=== PATIENT | male | born 1940 | race Caucasian/White ===

== ENCOUNTER 2024-12-06 03:39 | Inpatient (IN) | payer MEDICARE, BC, SELFPAY ==
[2024-12-05 19:42] VITALS: BP 168/102
[2024-12-05 20:01] LABS: % Basophils 0.2 % (0-2); % Immature Granulocytes 0.4 % (0-0.5); % Lymphocytes 9.1 % (20.5-51.1); % Monocytes 7.5 % (1.7-9.3); % Neutrophils 81.8 % (42.2-75.2); Absolute Eosinophils 0.1 10^3/uL (0-0.7); Absolute Lymphocytes 0.9 10^3/uL (1.2-3.4); Absolute Monocytes 0.8 10^3/uL (0.1-0.6); Absolute Neutrophils 8.2 10^3/uL (1.4-6.5); Hematocrit 38.3 % (39.0-52.0); Hemoglobin 13.2 g/dL (13.0-18.0); Mean Corp Hgb Conc. 34.5 g/dL (33.0-37.0); Mean Corpuscular Hgb 29.8 pg (27.0-31.0); Mean Corpuscular Volume 86.5 fL (80.0-94.0); Mean Platelet Volume 9.5 fL (7.4-10.4); Nucleated Red Blood Cells % 0 % (-); Platelet Count 212 10^3/uL (130-400); Red Blood Cell Count 4.43 10^6/uL (4.70-6.10); Red Cell Dist. Width 13.6 % (11.5-14.5)
[2024-12-05 20:15] LABS: COVID-19 Antigen Negative (Negative)
[2024-12-05 20:22] LABS: ALT (SGPT) 21 U/L (0-50); AST (SGOT) 25 U/L (17-59); Albumin 4.4 g/dl (3.5-5.0); Alkaline Phosphatase 72 U/L (38-126); Blood Urea Nitrogen 20 mg/dl (9-20); Calcium 9.3 mg/dl (8.4-10.2); Carbon Dioxide 27 mmol/L (22-30); Chloride 100 mmol/L (98-107); Glucose 230 mg/dl (70-99); Potassium 3.7 mmol/L (3.5-5.1); Sodium 137 mmol/L (135-145); Total Bilirubin 0.6 mg/dl (0.2-1.3); Total Protein 6.9 g/dl (6.3-8.2); eGFR > 60.00
--- NOTE | 2024-12-05 23:20 | ED.GENMED ---
History of Present Illness
<Ashkan Brink DO, Resident - Last Filed: 12/05/24 23:58>
General
Chief Complaint: Weakness
Source: patient, records and family
Time Seen by Provider: 12/05/24 23:08
History of Present Illness
History of Present Illness:
84-year-old male past medical history of seizures, atrial fibrillation on Eliquis, triple bypass, hypertension, hyperlipidemia presents for weakness and fever of 1 day in duration. Family reports that this morning patient was extremely weak, was
unable to get up and move around which she is typically able to do on his own. They are also reporting he has had a nonproductive cough for the last day or so. Report taking temperature at home, highest reading they report seeing was 101. Patient
has taken some medications, unfortunately they are in [place] and I am unsure to determine what they are specifically. Patient also endorses he is having 1 episode of nausea with vomiting, nonbloody, no diarrhea. In the emergency department patient
is afebrile, is in no respiratory distress, satting 94% on room air.
Past History
<Ashkan Brink DO, Resident - Last Filed: 12/05/24 23:58>
Past History
ED Past Medical History: CAD, HTN, Hypercholesterolemia, IDDM and Other (Kidney stones, BPH)
ED Past Surgical History: Appendectomy, Cardiac (CABG) and Other (Lower leg varicose vein stripping)
Social History
Tobacco: Non-smoker
Alcohol: Occasional
Drug: None
Personal:
Living: with family
Employment: Retired
Family History
Family History: Other (Noncontributory)
Review of Systems
<Ashkan Brink DO, Resident - Last Filed: 12/05/24 23:58>
Review of Systems
Constitutional: Reports fever
Respiratory: Reports cough (Nonproductive, nonbloody)
Cardiac: Reports no symptoms
ABD/GI: Reports nausea and vomiting; Denies diarrhea
Musculoskeletal: Reports no symptoms
Phy Exam
<Ashkan Brink DO, Resident - Last Filed: 12/05/24 23:58>
General Physical Exam
General Presentation: well appearing
Cardiovascular Exam
Cardiovascular Exam: no edema, no murmur and irregularly irregular
Pulmonary Exam
Pulmonary Exam: no respiratory distress, no crackles, no wheezing and other (Rhonchi present in right lower lung soriano)
Gastrointestinal Exam
Gastrointestinal Exam: non tender, soft and non distended
Neurological Exam
Neurological Exam: alert, oriented x3 and speech normal
Musculoskeletal Exam
Musculoskeletal Exam: no edema
Course
<Ashkan Brink DO, Resident - Last Filed: 12/05/24 23:58>
Orders/Labs/Results
Orders:
Orders
12/05/24 19:54
COVID-19 Antigen Urgent
Source: Nasal Swab
Complete Blood Count/With Diff Urgent
Comprehensive Metabolic Panel Urgent
Influenza A+B Rapid Molecular Urgent
SARAH Source: Nasal Swab
Specimen Description:
12/05/24 23:29
Electrocardiogram (*1) Urgent
Reason for Study: Shortness of Breath
EKG- Treatment ONCE
CR Chest - 2 Views Urgent
Comment:
Reason For Exam: sob low grade temp
12/05/24 23:30
0.9% Sodium Chloride 500 ml [Nss] 500 ml IV BOLUS
12/06/24 01:11
Bedside Glucose- Treatment ONCE
12/06/24 01:24
Straight cath- Treatment ONCE
Urinalysis Reflex To Culture Urgent
Abnormal Lab Results
12/05/24 12/06/24
19:54 01:16
RBC 4.43 L 10^6/uL
(4.70-6.10)
Hct 38.3 L %
(39.0-52.0)
Absolute Neuts (auto) 8.2 H 10^3/uL
(1.4-6.5)
Absolute Lymphs (auto) 0.9 L 10^3/uL
(1.2-3.4)
Absolute Monos (auto) 0.8 H 10^3/uL
(0.1-0.6)
Neutrophils % 81.8 H %
(42.2-75.2)
Lymphocytes % 9.1 L %
(20.5-51.1)
Glucose 230 H mg/dl
(70-99)
POC Glucose 187 H mg/dl
(70-99)
12/05/24 19:54
12/05/24 19:54
Vital Signs
Initial and Last Documented VS:
Initial Vital Signs
Temp Pulse Resp BP Pulse Ox
37.8 C 99 18 168/102 94
12/05/24 19:42 12/05/24 19:42 12/05/24 19:42 12/05/24 19:42 12/05/24 19:42
Last Documented Vital Signs
Temp Pulse Resp BP Pulse Ox
37.1 C 103 18 166/87 94
12/06/24 00:20 12/06/24 00:20 12/06/24 00:20 12/06/24 00:20 12/06/24 00:20
Nainalt;Tony Bernal, DO - Last Filed: 12/06/24 02:30>
Orders/Labs/Results
Orders:
Orders
12/05/24 19:54
COVID-19 Antigen Urgent
Source: Nasal Swab
Complete Blood Count/With Diff Urgent
Comprehensive Metabolic Panel Urgent
Influenza A+B Rapid Molecular Urgent
SARAH Source: Nasal Swab
Specimen Description:
12/05/24 23:29
Electrocardiogram (*1) Urgent
Reason for Study: Shortness of Breath
EKG- Treatment ONCE
CR Chest - 2 Views Urgent
Comment:
Reason For Exam: sob low grade temp
12/05/24 23:30
0.9% Sodium Chloride 500 ml [Nss] 500 ml IV BOLUS
12/06/24 01:11
Bedside Glucose- Treatment ONCE
12/06/24 01:24
Straight cath- Treatment ONCE
Urinalysis Reflex To Culture Urgent
Abnormal Lab Results
12/05/24 12/06/24
19:54 01:16
RBC 4.43 L 10^6/uL
(4.70-6.10)
Hct 38.3 L %
(39.0-52.0)
Absolute Neuts (auto) 8.2 H 10^3/uL
(1.4-6.5)
Absolute Lymphs (auto) 0.9 L 10^3/uL
(1.2-3.4)
Absolute Monos (auto) 0.8 H 10^3/uL
(0.1-0.6)
Neutrophils % 81.8 H %
(42.2-75.2)
Lymphocytes % 9.1 L %
(20.5-51.1)
Glucose 230 H mg/dl
(70-99)
POC Glucose 187 H mg/dl
(70-99)
12/05/24 19:54
12/05/24 19:54
Vital Signs
Initial and Last Documented VS:
Initial Vital Signs
Temp Pulse Resp BP Pulse Ox
37.8 C 99 18 168/102 94
12/05/24 19:42 12/05/24 19:42 12/05/24 19:42 12/05/24 19:42 12/05/24 19:42
Last Documented Vital Signs
Temp Pulse Resp BP Pulse Ox
37.1 C 103 18 166/87 94
12/06/24 00:20 12/06/24 00:20 12/06/24 00:20 12/06/24 00:20 12/06/24 00:20
<Ashkan Brink DO, Resident - Last Filed: 12/05/24 23:58>
MDM/Problems Addressed
Differential Diagnosis Includes:
Acute viral upper respiratory illness, bronchitis, pneumonia,
MDM/Problems Addressed:
84 male presents for elevated temperature, weakness and nonproductive cough approximately 1 day in duration
Patient is also endorsing 1 episode of nausea with vomiting, nonbloody no diarrhea
Patient reports he has been taking [id number]-ffsltal medications for his symptoms, unfortunately they are in [place] and I am unable to determine which medications they are specifically
In the emergency department, patient is afebrile, pressures are elevated, satting 94% on room air, no respiratory distress, resting comfortably in bed
White count within normal limits, hemoglobin within normal limits, chemistry within normal limits
On physical exam, abdomen benign heart irregularly irregular,
Lungs clear to auscultation, no wheezing, some rales in the right lower lung field
Influenza negative
COVID pending
Order chest x-ray two-view
Will check EKG
Will initiate 500 mL IV bolus as patient is weak
Low threshold for admission as patient is extremely weak and having difficulty moving around on his own
<Ashkan Brink DO, Resident - Last Filed: 12/05/24 23:58>
*Critical Care Note
Total Time (30-74mins, 75-104mins- exclusive of procedures): Not Applicable
ED Attending Note
<Ashkan Brink DO, Resident - Last Filed: 12/05/24 23:58>
-
Portions of this chart may have been created with voice recognition software.� Occasional wrong word or��sound alike� substitutions may have occurred due to the inherent limitations of voice recognition software.
<Tony Bernal DO - Last Filed: 12/06/24 02:30>
ED Attending Note
Patient seen and examined by attending physician: Yes
I performed a history and physical exam of patient and discussed management with resident, I reviewed resident's note and agree with documented findings and plan of care.: Yes
ED Attending Note:
The patient has rather significant debilitating weakness. It took several senior sales consultant just to get the patient out of the house over a prolonged period of time. Blood work is relatively unremarkable. Borderline tachycardic.
Discharge Plan
Departure
Patient Disposition: Admit
Date of Disposition: 12/06/24
Time of Disposition: 01:15
Presentation/result/management discussed w/ accepting MD/DO: Hospitalist
Patient with high blood pressure during this ER visit?: Yes
Discharge Problem:
Weakness
Prescriptions:
No Action
cholecalciferol (vitamin D3) [Vitamin D3] 1,000 UNIT tablet
1,000 unit PO HS
One Daily For Men Tablet
1 tab PO DAILY
cyanocobalamin (vitamin B-12) 1,000 MCG tablet
500 mcg PO Q48H
rosuvastatin 10 MG tablet
10 mg PO QPM
metformin 1,000 MG tablet
1,000 mg PO BID
Patient Comments:
stopped in [place] 03/19/19
acetaminophen 325 MG tablet
650 mg PO Q4HWA Qty: 0 0RF
Coreg:
25 mg PO BID
apixaban [Eliquis] 5 MG tablet
5 mg PO BID Qty: 60 2RF
ascorbic acid (vitamin C) [Vitamin C] 1,000 MG tablet
1,000 mg PO DAILY
sertraline 25 MG tablet
50 mg PO HS
docosahexaenoic acid-epa 1 CAP capsule
1 cap PO DAILY
psyllium husk (aspartame) [Metamucil Sugar-Free (aspart)] 174 GM powder
174 gm PO DAILY
cranberry extract [Theracran] 650 MG capsule
650 mg PO DAILY
losartan 50 MG tablet
100 mg PO HS
donepezil 5 MG tablet
5 mg PO DAILY
insulin aspart U-100 [Novolog U-100 Insulin aspart] 1,000 UNITS/10 ML solution
2 - 6 units SC .DAILYINAM
Patient Comments:
SLIDING SCALE
ezetimibe 10 MG tablet
10 mg PO HS
levetiracetam [Keppra] 750 MG tablet
500 mg PO BID
glipizide 5 MG tablet extended release 24hr
5 mg PO DAILY
amlodipine 5 MG tablet
5 mg PO DAILY Qty: 30 0RF
levofloxacin [Levaquin] 500 MG tablet
500 mg PO Daily Qty: 4 0RF
insulin glargine [Lantus U-100 Insulin] 100 UNIT/ML solution
17 units SQ HS Qty: 0 0RF
cephalexin 250 MG capsule
250 mg PO DAILY Qty: 0 0RF
Referrals:
UNKNOWN - PT NOT,INTERVIEWE [Family Provider] -
Interventions
Interventions:
*Risk Screen - Suicide Last Done: 12/05/24 19:42
*General Assessment Last Done: 12/05/24 19:42
*Neglect/Abuse Screening Last Done: 12/05/24 19:42
ED- Cardiac Assessment Last Done: 12/06/24 01:36
ED- Neurological Assessment Last Done: 12/06/24 00:21
ED- Pulmonary Assessment Last Done: 12/06/24 00:00
Discharge Date and Time
Print Language: IRISH
[2024-12-06] MEDS: NSS 500 IV (00:14)
[2024-12-06 00:20] VITALS: BP 166/87
[2024-12-06 01:18] LABS: Glucose - Point of Care 187 mg/dl (70-99)
[2024-12-06 02:10] VITALS: BMI 27.1
--- NOTE | 2024-12-06 03:09 | HPS.HSE ---
Family Physician
-
Family Physician: INTERVIEWE UNKNOWN - PT NOT
Chief Complaint
-
Weakness
History of Present Illness
This is an 84-year-old who has past medical history significant for CAD status post CABG, permanent atrial fibrillation on anticoagulation, BPH with recurrent urinary tract infections, hypertension, seizure disorder not currently on any
antiepileptics anymore who presents to the emergency department with acute onset of weakness this morning.
Per patient and family he had developed a nonproductive cough yesterday. He states that he has some mild shortness of breath. He denies having any chest pain. He denies any pleuritic symptoms. He is unaware of any fever. Family reportedly had a
Tmax of 101 yesterday at home. This morning patient was very difficult to get out of bed. He was unable to perform his usual activities in the morning. He was even unable to get up and move around. He himself denies any abdominal pain. He
reports 1 episode of vomiting during transfer by EMS. He denies any diarrhea. He denies any recent bloody bowel movements. He denies any melena. He denies having any urinary symptoms.
No sick contacts or recent travel.
On arrival in the emergency department he was normotensive to hypertensive with a blood pressure of 166/87, pulse was 103 and temperature was 98.7. Respiratory rate was 18 and he was satting 95% on room air. ECG shows atrial flutter with variable
conduction at a rate of 95. Chest x-ray shows no acute infiltrates. COVID and influenza were negative. CBC was unremarkable. Chemistries notable for glucose of 230 but otherwise unremarkable. LFTs within normal limits. No evidence of urinary
retention on bladder scan.
Medical History
Past Medical History
Past Medical History: Reports Arrhythmia (Permanent A-fib), CAD, HTN, Hypercholesterolemia, IDDM and Seizures
Additional Past Medical History:
Kidney stones
Past Surgical History: Reports Appendectomy and Cardiac (CABG)
Social History
Tobacco: Non-smoker
Alcohol: None
Drug: None
Personal:
Living: With Family
Employment: Retired
Family History
Family History: Not pertinent
Allergies / Home Medications
Allergies reflects when Allergies were last updated in [facility].
Home Medications with original date entered in [facility]
Allergy/Medication List:
Allergies
Allergy/AdvReac Type Severity Reaction Status Date / Time
lisinopril Allergy Unknown Verified 05/22/21 16:11
Home Medications
One Daily For Men Tablet 1 tab PO DAILY Supplement 03/02/11
cholecalciferol (vitamin D3) 25 mcg (1,000 unit) tablet (Vitamin D3) 1,000 unit PO HS Supplement 03/02/11
cyanocobalamin (vitamin B-12) 1,000 mcg tablet 500 mcg PO Q48H Supplement 01/26/17
rosuvastatin 10 mg tablet 10 mg PO QPM High cholesterol 01/26/17
metformin 1,000 mg tablet 1,000 mg PO BID Diabetes 04/10/17
acetaminophen 325 mg tablet 650 mg (2 x 325 mg) PO Q4HWA pain ##0 05/01/17
Core mg PO BID Heart disease/condition 03/30/19
apixaban 5 mg tablet (Eliquis) 5 mg PO BID #60 tabs 04/01/19
docosahexaenoic acid (dha)-epa 120 mg-180 mg capsule 1 cap PO DAILY Supplement 12/29/19
losartan 50 mg tablet 100 mg PO HS Blood pressure 12/29/19
ezetimibe 10 mg tablet 10 mg PO HS High cholesterol 04/30/21
amlodipine 5 mg tablet 5 mg PO DAILY #30 tabs 05/03/21
cephalexin 250 mg capsule 250 mg PO DAILY Infection ##0 05/03/21
glipizide 2.5 mg tablet, extended release 24 hr 2.5 mg PO DAILY Diabetes 05/03/21
insulin glargine 100 unit/mL subcutaneous solution (Lantus U-100 Insulin) 12 units (0.17 mL) SQ HS Diabetes ##0 05/03/21
Review of Systems
-
History Source: Patient and Family
Constitutional: Reports Fever and Fatigue
EENT: Reports No Symptoms
Respiratory: Reports Cough
Cardiac: Reports No Symptoms
Abdomen/GI: Reports Nausea
: Reports No Symptoms
Musculoskeletal: Reports No Symptoms
Skin: Reports No Symptoms
Neurological: Reports Weakness
Endocrine: Reports No Symptoms
Hematologic/Lymphatic: Reports No Symptoms
Psych: Reports No Symptoms
Physical Exam
Vital Signs
Vital Signs
Temp Pulse Resp BP Pulse Ox
98.7 F 99 15 166/87 94
12/06/24 00:20 12/06/24 03:00 12/06/24 03:00 12/06/24 00:20 12/06/24 02:45
Physical Exam
General: No Apparent Distress, Comfortable and Conversant
HEENT: NormoCephalic, Anicteric, Moist mucous membranes and Atraumatic
Respiratory: Clear
Cardiac: S1/S2 and Irregular Rhythm
Breast: Deferred by me
GI: Soft, Non Tender, Non Distended and Normal Bowel Sounds
Rectal: Deferred by Provider
Genito-urinary: Clear Urine and No costovertebral tender
Musculoskeletal: No Clubbing, No Cyanosis and No Edema
Skin: Warm
Neuro: AO x 3 and Nonfocal/grossly intact
Hematologic/Lymphatic: No Lymphadenopathy
Psych: Calm
Laboratory Results
-
12/05/24 19:54
12/05/24 19:54
Laboratory Results
Total Bilirubin 0.6 mg/dl (0.2-1.3) 12/05/24 19:54
AST 25 U/L (17-59) 12/05/24 19:54
ALT 21 U/L (0-50) 12/05/24 19:54
Alkaline Phosphatase 72 U/L (38-126) 12/05/24 19:54
Data Reviewed
-
Diagnostic Radiology: Image Personally Visualized and interpreted
Medical Tests (Nuc Med, Echo, EKG etc): Image Personally Visualized and interpreted
Lab Data: Labs Reviewed by me
Old Records: Reviewed
Impression/Plan
-
IMPRESSION:
84-year-old with complex past medical history including CAD status post CABG, permanent atrial fibrillation on anticoagulation, insulin-dependent diabetes, hypertension and BPH who has a history of recurrent urinary tract infections presents to the
emergency department with sudden weakness. History suggestive of 1 day of nonproductive, a measured fever at home and some mild shortness of breath. He denies any urinary symptoms. He reports mild dyspnea. He is extremely weak however viral
studies were negative. Chest x-ray shows no acute infiltrates. UA is pending. CBC and electrolytes are actually unremarkable. ECG shows no ischemia with known atrial flutter. Chart indicates history of seizure. Patient is not currently on any
seizure medications per the home meds. No seizure-like activity noted per family in the recent past.
PLAN:
Weakness w/ possible fever -no focal source of infection at this time. Highly suspicious for a urinary tract infection despite patient denial of urinary symptoms. Chest x-ray is clear at this time. He does have a history of ESBL E. coli as well
as sensitive Morganella.
- admit to med/surg
- gentle hydration for now
- if u/a positive will start empiric zosyn
- check procal, if positive and u/a negative, will start empiric ceftriaxone/doxycycline
- routine pulse ox
- routine neurochecks
- check cpk, tsh in am
- PT evaluation
DM II - Hyperglycemia w/o dka or hhs
- moderate sliding scale insulin
- continue lantus 10 hs
- 70/30 8 am
AFIB - permanent afib, rate controlled
- continue carvedilol
- continue apixaban
HTN
- continue amlodipine and losartan
CAD
- continue the statin and zetia
DVT PPX - on apixaban
Code status - full code
[2024-12-06 03:14] LABS: Urine Albumin 2+ (Neg - Trace); Urine Bilirubin Negative (Negative); Urine Character Clear (Clear); Urine Color Yellow; Urine Glucose 1+ (Negative); Urine Ketone Negative (Negative); Urine Leukocyte Trace (Negative); Urine Nitrite Negative (Negative); Urine Occult Blood Negative (Negative); Urine Urobilinogen Negative (Neg - 1+)
[2024-12-06 03:57] LABS: Urine Amorphous Seen; Urine Squamous Cell 16-20 /LPF (Few)
[2024-12-06 03:58] LABS: Urine Bacteria Moderate (Negative); Urine Mucus Few; Urine Red Blood Cell 0-2 /HPF (0-2)
[2024-12-06 04:00] VITALS: BP 154/88
[2024-12-06] MEDS: NSS 1000 IV ×2 (04:30→18:44)
[2024-12-06 05:41] LABS: Hemoglobin 11.8 g/dL (13.0-18.0); Mean Corp Hgb Conc. 33.7 g/dL (33.0-37.0); Mean Corpuscular Hgb 29.4 pg (27.0-31.0); Mean Corpuscular Volume 87.1 fL (80.0-94.0); Mean Platelet Volume 9.8 fL (7.4-10.4); Platelet Count 196 10^3/uL (130-400); Red Blood Cell Count 4.02 10^6/uL (4.70-6.10); Red Cell Dist. Width 13.8 % (11.5-14.5); White Blood Cell Count 8.2 10^3/uL (4.8-10.8)
[2024-12-06 06:00] LABS: Blood Urea Nitrogen 18 mg/dl (9-20); Calcium 8.7 mg/dl (8.4-10.2); Carbon Dioxide 26 mmol/L (22-30); Chloride 103 mmol/L (98-107); Creatine Phosphokinase 145 U/L (55-170); Estimated Creatinine Clearance 73 ml/min; Glucose 169 mg/dl (70-99); Magnesium 1.3 mg/dl (1.6-2.3); Potassium 3.4 mmol/L (3.5-5.1); Sodium 139 mmol/L (135-145); eGFR > 60.00
[2024-12-06 06:04] LABS: NT-proBNP 3800 pg/ml
[2024-12-06 06:10] LABS: Procalcitonin < 0.05 ng/ml (0.0-0.25)
[2024-12-06 06:28] LABS: TSH 1.99 uIU/ml (0.47-4.68)
[2024-12-06 08:00] VITALS: BP 158/87
[2024-12-06] MEDS: ELIQUIS 5 MG PO ×2 (08:09→20:06)
[2024-12-06] MEDS: NORVASC 2.5 MG PO (08:09)
[2024-12-06] MEDS: COREG 25 MG PO ×2 (08:10→20:05)
[2024-12-06] MEDS: GLUCOTROL XL (EXTENDED RELEASE) 2.5 MG PO (09:03)
[2024-12-06] MEDS: NOVOLOG FLEXPEN-LOW RESISTANCE SC (10:46)
[2024-12-06 10:52] LABS: Procalcitonin < 0.05 ng/ml (0.0-0.25)
[2024-12-06] MEDS: MAGNESIUM SULFATE 50 IV (11:11)
[2024-12-06] MEDS: NOVOLOG MIX 70/30 FLEXPEN 6 UNITS SC (11:12)
[2024-12-06] MEDS: KCL ELIXIR 40 MEQ PO (11:12)
[2024-12-06] MEDS: NOVOLOG FLEXPEN-LOW RESISTANCE 2 UNITS SC ×2 (11:18→18:38)
[2024-12-06 11:24] LABS: Glucose - Point of Care 229 mg/dl (70-99)
--- NOTE | 2024-12-06 12:26 | W.PN.UPDATE ---
Update Note
Progress Note Update
Patient admitted past midnight.
Patient seen and examined at bedside. 84-year-old male with history of permanent atrial fibrillation on Eliquis, BPH, UTIs, seizure disorder, hypertension, CAD status post CABG came to the hospital earlier this morning with weakness. Spoke to
spouse at bedside and she reported patient having significant weakness which prompted them to the ED for evaluation. Consult PT/OT.
Replete potassium and magnesium.
Pyuria, denies any dysuria. Urine culture pending. Will monitor
proBNP elevated however does not appear to be in CHF. Check echo. Follows with Dr. Pulido. If abnormal then consult cardiology.
Asked RN to finalize med rec.
Chest x-ray without any acute cardiopulmonary process
General: No Apparent Distress, Comfortable and Conversant
HEENT: NormoCephalic, Anicteric, Moist mucous membranes and Atraumatic
Respiratory: Clear
Cardiac: S1/S2 and Irregular Rhythm
GI: Soft, Non Tender, Non Distended and Normal Bowel Sounds
Genito-urinary: Clear Urine and No costovertebral tender
Musculoskeletal: No Edema
Neuro: AO x 3 and Nonfocal/grossly intact
Psych: Calm
[2024-12-06 14:27] VITALS: BP 161/81; PULSE 69
[2024-12-06 16:40] VITALS: BP 178/98
[2024-12-06 16:59] LABS: Glucose - Point of Care 232 mg/dl (70-99)
[2024-12-06] MEDS: CRESTOR 10 MG PO (18:39)
[2024-12-06] MEDS: VISBIOME 1 CAP PO (18:41)
[2024-12-06] MEDS: VIBRAMYCIN 100 MG PO (18:41)
[2024-12-06] MEDS: VITAMIN D3 (cholecalciferol) 25 MCG PO (18:44)
[2024-12-06] MEDS: LANTUS 0.1 UNITS SC (21:40)
[2024-12-06] MEDS: ZETIA 10 MG PO (21:40)
[2024-12-06] MEDS: COZAAR 100 MG PO (21:40)
[2024-12-06] MEDS: ZOLOFT 50 MG PO (21:44)
[2024-12-06 21:54] LABS: Glucose - Point of Care 166 mg/dl (70-99)
[2024-12-06 23:30] VITALS: BP 143/84
[2024-12-07 06:22] LABS: % Basophils 0.5 % (0-2); % Eosinophils 4.2 % (0-6); % Immature Granulocytes 0.5 % (0-0.5); % Monocytes 11.7 % (1.7-9.3); % Neutrophils 61.1 % (42.2-75.2); Absolute Eosinophils 0.3 10^3/uL (0-0.7); Absolute Lymphocytes 1.4 10^3/uL (1.2-3.4); Absolute Monocytes 0.7 10^3/uL (0.1-0.6); Absolute Neutrophils 3.8 10^3/uL (1.4-6.5); Hematocrit 36.7 % (39.0-52.0); Hemoglobin 12.2 g/dL (13.0-18.0); Mean Corp Hgb Conc. 33.2 g/dL (33.0-37.0); Mean Corpuscular Hgb 29.5 pg (27.0-31.0); Mean Corpuscular Volume 88.9 fL (80.0-94.0); Mean Platelet Volume 9.7 fL (7.4-10.4); Nucleated Red Blood Cells % 0 % (-); Platelet Count 182 10^3/uL (130-400); Red Blood Cell Count 4.13 10^6/uL (4.70-6.10); Red Cell Dist. Width 13.7 % (11.5-14.5); White Blood Cell Count 6.1 10^3/uL (4.8-10.8)
[2024-12-07 06:47] LABS: ALT (SGPT) 20 U/L (0-50); AST (SGOT) 28 U/L (17-59); Albumin 3.7 g/dl (3.5-5.0); Alkaline Phosphatase 62 U/L (38-126); Blood Urea Nitrogen 18 mg/dl (9-20); Calcium 8.7 mg/dl (8.4-10.2); Carbon Dioxide 27 mmol/L (22-30); Chloride 101 mmol/L (98-107); Estimated Creatinine Clearance 83 ml/min; Glucose 187 mg/dl (70-99); Magnesium 1.6 mg/dl (1.6-2.3); Potassium 3.5 mmol/L (3.5-5.1); Sodium 136 mmol/L (135-145); Total Bilirubin 0.6 mg/dl (0.2-1.3); eGFR > 60.00
[2024-12-07 07:10] VITALS: BP 185/92
[2024-12-07 07:53] LABS: Glucose - Point of Care 374 mg/dl (70-99)
[2024-12-07] MEDS: VITAMIN C 250 MG PO (08:16)
[2024-12-07] MEDS: GLUCOTROL XL (EXTENDED RELEASE) 2.5 MG PO (08:17)
[2024-12-07] MEDS: VISBIOME 1 CAP PO (08:17)
[2024-12-07] MEDS: ELIQUIS 5 MG PO ×2 (08:17→21:40)
[2024-12-07] MEDS: VIBRAMYCIN 100 MG PO (08:17)
[2024-12-07] MEDS: COREG 25 MG PO ×2 (08:18→21:10)
[2024-12-07] MEDS: NORVASC 2.5 MG PO (08:21)
[2024-12-07] MEDS: NOVOLOG FLEXPEN-LOW RESISTANCE 5 UNITS SC (09:37)
[2024-12-07] MEDS: NOVOLOG MIX 70/30 FLEXPEN 6 UNITS SC (09:37)
[2024-12-07] MEDS: VITAMIN B-12 1000 MCG PO (09:38)
[2024-12-07 11:00] VITALS: BP 141/91; PULSE 70
[2024-12-07 11:30] VITALS: BP 141/91; PULSE 70
[2024-12-07 12:59] LABS: Glucose - Point of Care 313 mg/dl (70-99)
--- NOTE | 2024-12-07 13:01 | CM ---
Patient seen at bedside earlier today and patient was unable to recall name of PCP. Patient indicated that patient lives with her in a 2 story home with a spiral staircase. Per it took approx 47 min to get patient down from upstairs
bedroom with EMS prior to admission to . Patient has a caregiver 2 days a week for 5 hours a day. Patient has nursing home care health insurance and patient has had a stay at [facility] several years ago. Patient PCP is Dr. Woo and he uses the
[facility] pharmacy for short term medications. Patient has had VN in the past and would like to go home but does not remember names of physicians. Patient states that patient has been declining in memory in the last several months and she
would like an assessment completed. Patient advised that PT/OT recommending SNF at this time. Patient requested to talk to his physician and TT sent to physician. CM will follow with patient and patient s/p discussion about
recommendations for discharge. CM will continue to follow for discharge planning needs.
Plan; home with VN/aides vs SNF
[2024-12-07 13:08] VITALS: BP 132/99
--- NOTE | 2024-12-07 13:11 | W.PN.HOSP.TC ---
Today's Communication/Plan
-
PT/OT evaluation
Monitor for fevers
Hydralazine as needed for SBP >190
Assessment / Plan
Assessment / Plan
#Weakness
-Suspect that this is mostly age-related deconditioning
-Initial concern for UTI due to history of ESBL species as well as Morganella
-Urinalysis was fairly bland, urine culture returned unremarkable with presence of mixed danish
-Has not had any urinary symptoms, no fevers or leukocytosis since admission
-Will continue to monitor for signs of infection
-PT/OT consulted
#Memory deficits
-CT on arrival showed significant age-related degenerative findings
- mentions recent changes to his memory
-Suspect that this is neurocognitive process such as dementia
-Will need outpatient formal neurocognitive eval
#IDDM with hyperglycemia
-Home medications include Lantus, NovoLog, metformin, glipizide
-No known history of microvascular ischemic disease
-Oral agents were held, added on ISS with Accu-Cheks
-Continue to monitor, BG goal 140-180
#Permanent AF
-Home medications include carvedilol 25 mg twice daily and Eliquis 5 mg twice daily
-No known history of electrophysiologic intervention
-Has remained rate controlled while here
#HTN
-No known history of hypertensive systemic disease
-Home medications include carvedilol, amlodipine, losartan
-Blood pressure has been elevated here; ordered as needed IV hydralazine
-Will consider uptitrating amlodipine if BP remains high
-Monitor for orthostatic changes
#CAD
-Obstructive, has history of coronary artery bypass grafting
-Home medications include high intensity statin, ezetimibe, beta-taya
-Also remains on DOAC for atrial fibrillation
-No signs of ACS
DVT PPhx - on apixaban
Diet - Diabetic
Code status - full code
Anticipated Discharge: 24 - 48 hours
Subjective/Interval History
-
Date of Service: December 07, 2024
Seen and examined at the bedside. No acute events reported overnight. AFVSS this morning
He states he feels well and is 'at the top of his game'
Denies any acute complaints. Denies fevers prior to coming into the hospital. States he felt weak on Saturday which was the main reason he came in
Objective Data
-
Labs:
Laboratory Results
12/07/24
05:31
WBC 6.1
Hgb 12.2 L
Hct 36.7 L
Plt Count 182
Sodium 136
Potassium 3.5
Chloride 101
Carbon Dioxide 27
BUN 18
Creatinine 0.7
Glucose 187 H
Calcium 8.7
Total Bilirubin 0.6
AST 28
ALT 20
Alkaline Phosphatase 62
Vital Signs:
Vital Signs
Temp Pulse Resp BP Pulse Ox
97.4 F 73 18 132/99 99
12/07/24 07:10 12/07/24 07:10 12/07/24 07:10 12/07/24 13:08 12/07/24 07:10
I&O
12/06/24 12/07/24 12/08/24
06:59 06:59 06:59
Intake Total 150 / 150
Output Total 400 / 400
Balance -250 / -250
Review of Systems
-
History Source: Patient
All other systems: Reviewed and negative
Physical Exam
-
General: Well Developed, Well Nourished, No Apparent Distress and Comfortable
HEENT: Normocephalic, Atraumatic, Moist Mucous Membranes and Anicteric
Respiratory: Clear to Auscultation and Non Labored Respirations
Cardiac: Regular Rhythm and S1/S2; Negative Murmur, Rub or Gallop
GI: Soft, Nontender, Nondistended and Normal Bowel Sounds
Musculoskeletal: No Clubbing, No Cyanosis and No Edema
Skin: Warm, Dry and Normal Turgor; Negative Rash
Neuro: AO x 3 and Nonfocal/Grossly Intact; Negative Tremors
Psych: Calm
Data Reviewed
-
Labs: Labs Reviewed by me, Discussed with Patient and Discussed with Family
[2024-12-07] MEDS: NOVOLOG FLEXPEN-LOW RESISTANCE 4 UNITS SC (13:47)
[2024-12-07] MEDS: NSS IV (13:51)
[2024-12-07 15:10] VITALS: BP 162/84
--- NOTE | 2024-12-07 16:14 | PTCARENOTE ---
1600 Pt transferred to room 326-1 for HX of ESBL in his urine. Pt oriented to staff, call light and environment. Personal items and call light within reach. Bed alarm armed and audible. All needs met.
[2024-12-07 16:48] LABS: Glucose - Point of Care 269 mg/dl (70-99)
[2024-12-07] MEDS: VITAMIN D3 (cholecalciferol) 25 MCG PO (17:32)
[2024-12-07] MEDS: CRESTOR 10 MG PO (17:43)
[2024-12-07] MEDS: NOVOLOG FLEXPEN-LOW RESISTANCE 3 UNITS SC (17:43)
[2024-12-07] MEDS: ZETIA 10 MG PO (21:40)
[2024-12-07] MEDS: ZOLOFT 50 MG PO (21:41)
[2024-12-07 21:43] LABS: Glucose - Point of Care 230 mg/dl (70-99)
[2024-12-07] MEDS: LANTUS 0.1 UNITS SC (21:52)
[2024-12-07] MEDS: COZAAR 100 MG PO (21:55)
[2024-12-07 23:00] VITALS: BP 156/93
[2024-12-08 07:00] VITALS: BP 175/104
[2024-12-08 07:25] LABS: % Basophils 0.4 % (0-2); % Eosinophils 3.8 % (0-6); % Immature Granulocytes 0.3 % (0-0.5); % Lymphocytes 22.4 % (20.5-51.1); % Monocytes 10.1 % (1.7-9.3); Absolute Eosinophils 0.3 10^3/uL (0-0.7); Absolute Lymphocytes 1.6 10^3/uL (1.2-3.4); Absolute Monocytes 0.7 10^3/uL (0.1-0.6); Absolute Neutrophils 4.5 10^3/uL (1.4-6.5); Hematocrit 36.8 % (39.0-52.0); Hemoglobin 12.8 g/dL (13.0-18.0); Mean Corp Hgb Conc. 34.8 g/dL (33.0-37.0); Mean Corpuscular Hgb 30.2 pg (27.0-31.0); Mean Corpuscular Volume 86.8 fL (80.0-94.0); Mean Platelet Volume 10.1 fL (7.4-10.4); Nucleated Red Blood Cells % 0 % (-); Platelet Count 203 10^3/uL (130-400); Red Blood Cell Count 4.24 10^6/uL (4.70-6.10); Red Cell Dist. Width 13.7 % (11.5-14.5); White Blood Cell Count 7.1 10^3/uL (4.8-10.8)
[2024-12-08 07:52] LABS: Blood Urea Nitrogen 22 mg/dl (9-20); Calcium 9.1 mg/dl (8.4-10.2); Carbon Dioxide 28 mmol/L (22-30); Chloride 99 mmol/L (98-107); Estimated Creatinine Clearance 65 ml/min; Glucose 192 mg/dl (70-99); Potassium 3.5 mmol/L (3.5-5.1); Sodium 138 mmol/L (135-145); eGFR > 60.00
[2024-12-08 08:31] LABS: Glucose - Point of Care 222 mg/dl (70-99)
[2024-12-08] MEDS: COREG 25 MG PO ×2 (09:54→21:05)
[2024-12-08] MEDS: VITAMIN C 250 MG PO ×2 (09:54→21:24)
[2024-12-08] MEDS: NORVASC 5 MG PO (09:54)
[2024-12-08] MEDS: ELIQUIS 5 MG PO ×2 (09:55→21:05)
[2024-12-08] MEDS: VISBIOME 1 CAP PO (09:55)
[2024-12-08] MEDS: VITAMIN B-12 1000 MCG PO (09:55)
[2024-12-08] MEDS: GLUCOTROL XL (EXTENDED RELEASE) 2.5 MG PO (09:55)
[2024-12-08] MEDS: NOVOLOG FLEXPEN-LOW RESISTANCE 2 UNITS SC (09:56)
[2024-12-08] MEDS: NOVOLOG MIX 70/30 FLEXPEN 8 UNITS SC (09:58)
--- NOTE | 2024-12-08 09:59 | PN.CDI ---
CDI
- -
CDI:
Physician Documentation Request
Admit Date: 12/06/24 03:39
Dear Doctor Marvin,
Clinical Indicators:
Patient admitted with weakness.
1/5 Potassium Elixir 40 meq po x 1.
1/5 Magnesium Price 2 gm IV x 1.
Potassium/Magnesium levels:
12/06/24
05:23
Potassium 3.4 L
Magnesium 1.3 L
Based on the above, could you clarify in the progress notes, the appropriate diagnosis, if significant, that supports the above abnormalities and additional evaluation, monitoring and/or treatment rendered:
Hypokalemia/Hypomagnesemia
Abnormal lab values, clinically insignificant
Other
Use of terms such as suspected, likely, concern for, or probable (associated with a specific diagnosis that is being evaluated, monitored, or treated as if it exists) are acceptable and can be coded in the inpatient setting, when documented at the
time of discharge.
Thank you,
Judy Jimenez RN BSN
CDI Specialist
available via tiger text
Please use your independent medical judgment in providing your response.
--- NOTE | 2024-12-08 10:26 | CM ---
Patient and , nursing at bedside. patient willing to see if patient would be accepted to [facility], provided additional options/llist and PAC data. CM sent referral to [facility] via all scripts and left VM via phone and tt for liaison. CM will
continue to follow for discharge planing needs.
Plan; SNF vs home with VN
[2024-12-08] MEDS: NORVASC PO (10:38)
[2024-12-08] MEDS: NOVOLOG MIX 70/30 FLEXPEN SC (10:39)
[2024-12-08] MEDS: VIBRAMYCIN PO (10:39)
--- NOTE | 2024-12-08 11:50 | PTOTSP ---
Speech Language Pathology
Pt seen for cognitive-linguistic evaluation via the [place] Cognitive Assessment (MOCA), version 8.2. Pt with a score of 14/30 where normal range is 26-30, indicative of moderate cognitive deficits. stated pt has had test completed in the
past and most recent score was 23/30.
Pt also seen for clinical bedside swallow evaluation. P.O. trials of puree, regular solids, and thin liquids provided. Adequate mastication, bolus formation, and A-P transit noted. Brief cough post fruit. After consecutive sips of water, pt
talking, then secondary swallow noted with immediate explosive coughing. and pt reported coughing at times with meals at home. stated cough is a little more intense at this time.
Recommend:
(1) Regular solids/thin liquids
(2) VSE
(3) Aspiration precautions: sit upright, slow rate
(4) Meds as tolerated
(5) PRODUCT BLENDING SUPERVISOR to continue to follow
[2024-12-08 12:00] LABS: Glucose - Point of Care 443 mg/dl (70-99)
[2024-12-08 12:58] LABS: Glucose 449 mg/dl (70-99)
[2024-12-08] MEDS: VIBRAMYCIN 100 MG PO (13:14)
[2024-12-08] MEDS: NOVOLOG FLEXPEN-LOW RESISTANCE 6 UNITS SC (13:15)
--- NOTE | 2024-12-08 14:04 | W.PN.HOSP.TC ---
Today's Communication/Plan
-
PT/OT with plan for SNF
Trend BMP and magnesium levels
Monitor for fevers
Increase amlodipine to 5 mg
Uptitrate insulin per Accu-Chek reading
VSE
Assessment / Plan
Assessment / Plan
#Weakness
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
-Suspect that this is mostly age-related deconditioning
-Initial concern for UTI due to history of ESBL species as well as Morganella
-Urinalysis was fairly bland, urine culture returned unremarkable with presence of mixed danish
-Has not had any urinary symptoms, no fevers or leukocytosis since admission
-Will continue to monitor for signs of infection
-PT/OT consulted
#IDDM with hyperglycemia
-Home medications include Lantus, NovoLog, metformin, glipizide
-No known history of microvascular ischemic disease
-Oral agents were held, added on ISS with Accu-Cheks
-Lantus increased to 14 units, aspart increased to 8 units here
-Continue to monitor, BG goal 140-180
#Electrolyte deficiency
-hypokalemia/hypomagnesemia noted on admission labs
-Status post repletion with potassium and magnesium
-Unlikely severe enough to contribute to his weakness (likely viral infxn)
-Resolved as of labs 12/08
#Memory deficits
-CT on arrival showed significant age-related degenerative findings
- mentions recent changes to his memory
-Suspect that this is neurocognitive process such as dementia
-Will need outpatient formal neurocognitive eval
-Speech therapies following
#Permanent AF
-Home medications include carvedilol 25 mg twice daily and Eliquis 5 mg twice daily
-No known history of electrophysiologic intervention
-Has remained rate controlled while here
#HTN
-No known history of hypertensive systemic disease
-Home medications include carvedilol, amlodipine, losartan
-Blood pressure has been elevated here; ordered as needed IV hydralazine
-Will consider uptitrating amlodipine if BP remains high
-Monitor for orthostatic changes
#CAD
-Obstructive, has history of coronary artery bypass grafting
-Home medications include high intensity statin, ezetimibe, beta-taya
-Also remains on DOAC for atrial fibrillation
-No signs of ACS
#H/O Recurrent UTI
-Currently on doxycycline 100 mg daily for prophylaxis
-No signs of recurrent UTI on urinalysis or culture here
-Not receiving any new antibiotics at this time
DVT PPhx - on apixaban
Diet - Diabetic
Code status - full code
Anticipated Discharge: Within 24 hours
Subjective/Interval History
-
Date of Service: December 08, 2024
Objective Data
-
Labs:
Laboratory Results
12/08/24 12/08/24
06:21 12:18
WBC 7.1
Hgb 12.8 L
Hct 36.8 L
Plt Count 203
Sodium 138
Potassium 3.5
Chloride 99
Carbon Dioxide 28
BUN 22 H
Creatinine 0.9
Glucose 192 H 449 H
Calcium 9.1
Vital Signs:
Vital Signs
Temp Pulse Resp BP Pulse Ox
97.2 F 80 16 175/104 95
12/08/24 07:00 12/08/24 09:54 12/08/24 07:00 12/08/24 09:54 12/08/24 07:00
I&O
12/07/24 12/08/24 12/09/24
06:59 06:59 06:59
Intake Total 1919
Balance 1919
--- NOTE | 2024-12-08 14:30 | PTOTSP ---
Speech Language Pathology
VIDEOFLUOROSCOPIC SWALLOWING EXAMINATION (VSE) completed. Oropharyngeal swallow WFL. Trace intermittent pharyngeal residue noted. Transient supraglottic penetration (PAS 2) with thin liquids and mildly thick liquids. No persistent penetration or
any aspiration noted.
Recommend:
(1) Regular solids/thin liquids
(2) General aspiration precautions
(3) Meds as tolerated
(4) VARNISH MAKER HELPER to sign off as swallow is WFL and cognitive deficits are not related to any acute issue. Please reconsult as indicated
[2024-12-08 15:00] VITALS: BP 163/93
[2024-12-08 16:49] LABS: Glucose - Point of Care 262 mg/dl (70-99)
[2024-12-08] MEDS: CRESTOR 10 MG PO (17:19)
[2024-12-08] MEDS: NOVOLOG FLEXPEN-LOW RESISTANCE 3 UNITS SC (17:19)
[2024-12-08] MEDS: VITAMIN D3 (cholecalciferol) 25 MCG PO (17:21)
--- NOTE | 2024-12-08 18:05 | PTCARENOTE ---
Accucheck machine read error high. STAT BG level drawn. resulted 449. 6 units novolog given. BG down to 262 at dinner. Sliding scale given with dinner. Will continue to monitor BG levels.
[2024-12-08] MEDS: ZOLOFT 50 MG PO (21:24)
[2024-12-08] MEDS: COZAAR 100 MG PO (21:24)
[2024-12-08] MEDS: ZETIA 10 MG PO (21:31)
[2024-12-08 22:41] LABS: Glucose - Point of Care 193 mg/dl (70-99)
[2024-12-08] MEDS: LANTUS 0.14 UNITS SC (22:48)
[2024-12-08 23:15] VITALS: BP 166/81
[2024-12-09 07:00] VITALS: BP 178/108
[2024-12-09 07:25] LABS: Glucose - Point of Care 192 mg/dl (70-99)
[2024-12-09] MEDS: VIBRAMYCIN 100 MG PO (09:04)
[2024-12-09] MEDS: COREG 25 MG PO (09:04)
[2024-12-09] MEDS: NORVASC 5 MG PO (09:05)
[2024-12-09] MEDS: VITAMIN B-12 1000 MCG PO (09:05)
[2024-12-09] MEDS: ELIQUIS 5 MG PO (09:05)
[2024-12-09] MEDS: VISBIOME 1 CAP PO (09:05)
[2024-12-09] MEDS: GLUCOTROL XL (EXTENDED RELEASE) 2.5 MG PO (09:05)
[2024-12-09] MEDS: NOVOLOG MIX 70/30 FLEXPEN 8 UNITS SC (09:08)
[2024-12-09] MEDS: NOVOLOG FLEXPEN-LOW RESISTANCE 1 UNITS SC (09:09)
--- NOTE | 2024-12-09 10:41 | CM ---
Patient accepted to [facility] for transfer today. Physician aware. Patient also aware and reviewed IMM. Patient is for transfer via ambulance, transfer forms on chart. CM will continue to follow for discharge planning needs.
Plan; [facility]; please call report to [phone]/fax [phone].
[2024-12-09 11:43] LABS: Glucose - Point of Care 329 mg/dl (70-99)
[2024-12-09] MEDS: TESSALON PERLES 100 MG PO (12:27)
[2024-12-09] MEDS: NOVOLOG FLEXPEN-LOW RESISTANCE 4 UNITS SC ×2 (12:27→15:58)
--- NOTE | 2024-12-09 12:39 | W.PN.HOSP.TC ---
Today's Communication/Plan
-
Discharge to SNF
Assessment / Plan
Assessment / Plan
#Weakness
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
-Suspect that this is mostly age-related deconditioning
-Initial concern for UTI due to history of ESBL species as well as Morganella
-Urinalysis was fairly bland, urine culture returned unremarkable with presence of mixed danish
-Has not had any urinary symptoms, no fevers or leukocytosis since admission
-Will continue to monitor for signs of infection
-PT/OT consulted
#IDDM with hyperglycemia
-Home medications include Lantus, NovoLog, metformin, glipizide
-No known history of microvascular ischemic disease
-Oral agents were held, added on ISS with Accu-Cheks
-Continue to monitor, BG goal 140-180
#Electrolyte deficiency
-hypokalemia/hypomagnesemia noted on admission labs
-Status post repletion with potassium and magnesium
-Unlikely severe enough to contribute to his weakness (likely viral infxn)
-Resolved as of labs 12/08
#Memory deficits
-CT on arrival showed significant age-related degenerative findings
- mentions recent changes to his memory
-Suspect that this is neurocognitive process such as dementia
-Will need outpatient formal neurocognitive eval
-Speech therapies following
#Permanent AF
-Home medications include carvedilol 25 mg twice daily and Eliquis 5 mg twice daily
-No known history of electrophysiologic intervention
-Has remained rate controlled while here
#HTN
-No known history of hypertensive systemic disease
-Home medications include carvedilol, amlodipine, losartan
-Blood pressure has been elevated here; ordered as needed IV hydralazine
-Will consider uptitrating amlodipine if BP remains high
-Monitor for orthostatic changes
#CAD
-Obstructive, has history of coronary artery bypass grafting
-Home medications include high intensity statin, ezetimibe, beta-taya
-Also remains on DOAC for atrial fibrillation
-No signs of ACS
#H/O Recurrent UTI
-Currently on doxycycline 100 mg daily for prophylaxis
-No signs of recurrent UTI on urinalysis or culture here
-Not receiving any new antibiotics at this time
DVT PPhx - on apixaban
Diet - Diabetic
Code status - full code
Anticipated Discharge: Today
Subjective/Interval History
-
Date of Service: December 09, 2024
Seen and examined at the bedside. No acute events reported overnight. AFVSS this morning.
States he feels well and is ready for rehab. at bedside and updated.
Objective Data
-
Vital Signs:
Vital Signs
Temp Pulse Resp BP Pulse Ox
98.0 F 68 18 178/108 94
12/09/24 07:00 12/09/24 07:00 12/09/24 07:00 12/09/24 07:00 12/09/24 07:00
I&O
12/08/24 12/09/24 12/10/24
06:59 06:59 06:59
Intake Total 1919 1380 / 1380
Balance 1919 1380 / 1380
Review of Systems
-
History Source: Patient
All other systems: Reviewed and negative
Physical Exam
-
General: Well Developed, Well Nourished, No Apparent Distress and Comfortable
HEENT: Normocephalic, Atraumatic and Moist Mucous Membranes
Respiratory: Clear to Auscultation and Non Labored Respirations
Cardiac: Regular Rhythm and S1/S2; Negative Murmur, Rub or Gallop
GI: Soft, Nontender, Nondistended and Normal Bowel Sounds
Musculoskeletal: No Clubbing, No Cyanosis and No Edema
Skin: Warm, Dry and Normal Turgor; Negative Rash
Neuro: AO x 3 and Nonfocal/Grossly Intact; Negative Tremors
Psych: Calm
[2024-12-09 12:57] VITALS: BP 115/65
[2024-12-09 15:00] VITALS: BP 142/69
[2024-12-09 15:35] LABS: Glucose - Point of Care 304 mg/dl (70-99)
[2024-12-09] MEDS: CRESTOR 10 MG PO (17:00)
[2024-12-09] MEDS: VITAMIN D3 (cholecalciferol) 25 MCG PO (17:00)
--- NOTE | 2024-12-10 17:51 | W.DCSUMMARY ---
Discharge Summary
Discharge Data
Date of Admission: 12/06/24
Date of Discharge: 12/09/24
-
Pending Results: No
Hospital Course
84-year-old male with CAD s/p CABG, HTN, HLD, permanent AF on Eliquis, BPH, recurrent UTI on doxycycline prophylaxis that presented to the hospital with weakness. Per him and his he had preceding cough and other viral URI symptoms though the
felt he was more weak on day of his presentation. Viral testing for flu/COVID/RSV were unyielding. No fevers recorded in the hospital, no leukocytosis, other workup negative for bacterial infection. UA was clear as well. Was evaluated by
physical therapy that recommended SNF. raised concerns over memory deficits that have been progressing. CT scan with significant chronic ischemic findings though nothing acute. Recommend outpatient follow-up with neurologist for
neurocognitive evaluation.
While in the hospital his amlodipine was increased to 5 mg for hypertension. Would not be aggressive with blood pressure due to his age and possible dementia.
Discharge Plan
-
Patient Disposition: Long Term/SNF
Discharge Diagnosis/Procedures: Weakness
Suspected viral URI
Condition: Fair
Diet: No restrictions
Activity: As tolerated
Driving Restrictions: No driving for 24 hours
Bathing Restrictions: None
Blood Work: None
Other Services: PT and OT
Activity Restrictions/Additional Instructions:
Should have follow-up with family doctor after discharge. Should be seen in office within 1 to 2 weeks of discharge
Instructions: Weakness
Referrals:
UNKNOWN - PT NOT,INTERVIEWE [Family Provider] -
Additional Discharge Medication Instructions: Increased amlodipine to 5 mg daily
Continue with benzonatate as needed for cough
Continue doxycycline 100 mg daily for UTI prophylaxis
Prescriptions:
New
amlodipine 5 mg Tablet
5 mg PO DAILY 30 Days Qty: 30 0RF
losartan 50 mg Tablet
100 mg PO HS 30 Days Qty: 60 0RF
rosuvastatin 10 mg Tablet
10 mg PO QPM 30 Days Qty: 30 0RF
benzonatate 100 mg Capsule
100 mg PO TIDPRN PRN (Reason: cough) 7 Days Qty: 20 0RF
Lactobac/Bifidobac [Visbiome]
1 cap PO DAILY Qty: 1 0RF
Continued
glipizide 2.5 mg Tablet Extended Release 24hr
2.5 mg PO QDAY
metformin 500 mg Tablet
500 mg PO BID
carvedilol 25 mg Tablet
25 mg PO BID
doxycycline hyclate 100 mg Capsule
100 mg PO DAILY
insulin glargine [Lantus U-100 Insulin] 100 unit/mL Solution
14 unit SC HS
sertraline [Zoloft] 50 mg Tablet
50 mg PO HS
ezetimibe [Zetia] 10 mg Tablet
10 mg PO HS
insulin asp prt-insulin aspart [Novolog Mix 70-30 U-100 Insuln] 100 unit/mL (70-30) Solution
8 unit SC QDAY
Eliquis 5 mg Tablet
5 mg PO BID
cyanocobalamin (vitamin B-12) 500 mcg Tablet
1,000 mcg PO DAILY
cholecalciferol (vitamin D3) [Vitamin D3] 25 mcg (1,000 unit) Capsule
25 mcg PO QACDINNER
coenzyme A83-gdumyms E 100-100 mg-unit Capsule
1 cap PO HS
Men's Daily 0.4-600 mg-mcg Capsule
1 cap PO DAILY
PreserVision AREDS-2 250-90-40-1 mg Capsule
1 tab PO AMHS
turmeric 400 mg Capsule
400 mg PO QHS
ascorbic acid (vitamin C) [Vitamin C] 250 mg Tablet
250 mg PO DAILY
Theracran 650 mg Capsule
1,300 mg PO DAILY
Discontinued
amlodipine 2.5 mg Tablet
2.5 mg PO DAILY
losartan 100 mg Tablet
100 mg PO DAILY
rosuvastatin [Crestor] 20 mg Tablet
20 mg PO DAILY
Discharge Orders:
Discharge Patient (As Directed); Ordered 12/09/24
Ordered By: Ramos Wong
Discharge Date and Time
Discharge Date/Time: 12/09/24 17:28
Print Language: ITALIAN
== END 2024-12-09 17:28 | DRG 884 ==
LOC: 3 WEST ACU 03:39
PROVIDERS: Emergency Medicine; Internal Medicine; ADMITTING PHYSICIAN Internal Medicine; ATTENDING PHYSICIAN Internal Medicine; EMERGENCY PHYSICIAN Emergency Medicine
DX: R54 Age-related physical debility (principal); I48.21 Permanent atrial fibrillation; G40.909 Epilepsy, unspecified, not intractable, without status epilepticus; Z79.01 Long term (current) use of anticoagulants; E78.00 Pure hypercholesterolemia, unspecified; Z11.52 Encounter for screening for COVID-19; E11.65 Type 2 diabetes mellitus with hyperglycemia; I10 Essential (primary) hypertension; I25.10 Atherosclerotic heart disease of native coronary artery without angina pectoris; E87.6 Hypokalemia; E83.42 Hypomagnesemia; J06.9 Acute upper respiratory infection, unspecified
CPT/HCPCS: 70450; 71046; 74230; 80048; 80053; 81003; 81015; 82550; 82947; 82962; 83735; 83880; 84145; 84443; 85025; 85027; 87086; 87502; 87811; 92523; 92610; 92611; 93005; 93306; 97116; 97162; 97167; 97530; 99285

== ENCOUNTER → 2024-12-14 11:15 | Outpatient (REF) | payer OTHER, MEDICARE, BC, SELFPAY ==
[2024-12-14 11:41] LABS: Hemoglobin 13.1 g/dL (13.0-18.0); Mean Corp Hgb Conc. 32.8 g/dL (33.0-37.0); Mean Corpuscular Hgb 29.9 pg (27.0-31.0); Mean Corpuscular Volume 91.3 fL (80.0-94.0); Mean Platelet Volume 10.2 fL (7.4-10.4); Platelet Count 245 10^3/uL (130-400); Red Blood Cell Count 4.38 10^6/uL (4.70-6.10); Red Cell Dist. Width 13.2 % (11.5-14.5); White Blood Cell Count 6.9 10^3/uL (4.8-10.8)
[2024-12-14 11:49] LABS: ALT (SGPT) 22 U/L (0-50); AST (SGOT) 25 U/L (17-59); Alkaline Phosphatase 99 U/L (38-126); Blood Urea Nitrogen 24 mg/dl (9-20); Calcium 9.5 mg/dl (8.4-10.2); Carbon Dioxide 28 mmol/L (22-30); Chloride 100 mmol/L (98-107); Glucose 239 mg/dl (70-99); Potassium 4.2 mmol/L (3.5-5.1); Sodium 139 mmol/L (135-145); Total Bilirubin 0.5 mg/dl (0.2-1.3); Total Protein 6.5 g/dl (6.3-8.2); eGFR > 60.00
== END ==
LOC: OLABP 11:15
PROVIDERS: ATTENDING PHYSICIAN Family Medicine
DX: M62.59 Muscle wasting and atrophy, not elsewhere classified, multiple sites (principal); J06.9 Acute upper respiratory infection, unspecified; I48.21 Permanent atrial fibrillation; I10 Essential (primary) hypertension; E87.6 Hypokalemia; E83.42 Hypomagnesemia; R54 Age-related physical debility; I25.10 Atherosclerotic heart disease of native coronary artery without angina pectoris
CPT/HCPCS: 36415; 80053; 85027

== ENCOUNTER 2025-05-09 22:31 | Inpatient (IN) | payer MEDICARE, BC, SELFPAY ==
[2025-05-09 20:28] VITALS: BP 161/79
[2025-05-09 20:29] VITALS: BP 161/79; BMI 33.2
--- NOTE | 2025-05-09 20:38 | ED.GENMED ---
History of Present Illness
General
Chief Complaint: Weakness
Source: patient and ambulance crew ( called ambulance due to weakness and fever)
Exam Limitations: none
Time Seen by Provider: 05/09/25 20:31
Nursing documentation reviewed up to this point in time: agreed with
History of Present Illness
History of Present Illness:
85-year-old male transported by EMS due to weakness and fever. He denies any pain.
Past History
Past History
ED Past Medical History: CAD, HTN, Hypercholesterolemia, IDDM and Other (Kidney stones, BPH)
ED Past Surgical History: Appendectomy, Cardiac (CABG) and Other (Lower leg varicose vein stripping)
Social History
Tobacco: Non-smoker
Alcohol: Occasional
Drug: None
Personal:
Living: with family
Employment: Retired
Family History
Family History: Other (Noncontributory)
Review of Systems
Review of Systems
Allergies reviewed?: Yes
All Other Systems: Not applicable
Constitutional: Reports fever and fatigue
EENT: Reports no symptoms
Respiratory: Reports no symptoms
Cardiac: Reports no symptoms
ABD/GI: Reports no symptoms
: Reports no symptoms
Musculoskeletal: Reports no symptoms
Skin: Reports no symptoms
Neurological: Reports weakness
Endocrine: Reports no symptoms
Hematologic/Lymphatic: Reports no symptoms
Psychiatric: Reports no symptoms
Phy Exam
Physical Exam
Physical Exam:
Physical Exam
General: no apparent distress, not acutely ill
Neck: supple. no meningeal signs. normal posterior pharynx
Heart: s1/s2 regular rate and rhythm, no murmur. equal radial
pulses. Sternotomy scar midline
HEENT: Pupils equal round reactive to light, EOMI
Lungs: no acute respiratory distress. clear bilaterally
Abdomen: normal bowel sounds. not tender. no CVAT
Neuro: alert and oriented. no focal neurological deficits cranial nerves II through XII intact
Skin: no rash midline scar on knee
Psychiatric: well kept. interactive and cooperative
Extremities: no edema. no calf tenderness. negative homans. good distal pulses
Course
Orders/Labs/Results
Orders:
Orders
05/09/25 20:27
EKG [Electrocardiogram (*1)] Urgent
Reason for Study: Fatigue / Weakness
EKG- Treatment ONCE
05/09/25 20:28
Cardiac Monitoring- Treatment ONCE
IV Insert/Care/Rem.- Treatment PRN
Straight cath- Treatment ONCE
O2 Therapy [RESP] Urgent
Titrate/Wean O2 to maintain O2 sat greater than (%): 93
Special Instructions: TO MAINTAIN CONTINUOUS O2 SATS > OR = 93%
Pulse Ox/cont/shift [RESP] Urgent
Quantity: 1
Special Instructions: CONTINUOUS
05/09/25 20:38
CT Head W/o Iv Contrast Urgent
Comment:
Reason For Exam: fall
COVID-19 Antigen Urgent
Source: Nasal Swab
Complete Blood Count/With Diff Urgent
Comprehensive Metabolic Panel Urgent
Lactic Acid Q4H
Comment: ON ICE, CANCEL 2ND ORDER IF FIRST LACTIC ACID LEVEL <2
Urinalysis Reflex To Culture Urgent
Date Specimen was Collected: 05/09/25
Time Specimen was Collected: 20:28
Urine Microscopic Reflex Cult Urgent
Blood Culture Q20M
SARAH Source: Blood/Venous
Specimen Description:
Comment: Urgent from separate sites. If patient screens positive for possible sepsis
Influenza A+B Rapid Molecular Urgent
SARAH Source: Nasal Swab
Specimen Description:
CR Chest - 2 Views Urgent
Comment:
Reason For Exam: fever
05/09/25 20:56
Blood Culture Q20M
SARAH Source: Blood/Venous
Specimen Description:
Comment: Urgent from separate sites. If patient screens positive for possible sepsis
05/09/25 21:18
Acetaminophen [Tylenol] 650 mg PO NOW STA
05/09/25 22:00
Flush (0.9% Sodium Chloride) [Flush (Nss)] See Dose Instructions IV PER PROTOCOL
05/09/25 22:19
Admit/Transfer Patient As Directed
Co-Sign Provider:
Level of Care: Inpatient admission
Assign to:: Medical/Surgical
Physician / Group: Tamiko
Diagnosis: COVID 19 infection
Reason for Hospitalization: weakness
Expected length of stay greater than two midnights?: Yes
ELOS- Estimated Length of Stay in days: 2
I certify the patient meets the requirements for IP care: Yes
PRN Pain Medication Management As Directed
May give lesser potent ordered pain med per pt: Yes
preference::
Protocol:: Medication orders for pain may be administered in a
manner that supports deferring to patient preference
when the pt is:
- Requesting an ordered lesser potent pain medication.
Least to most potent pain medications are defined
as: acetaminophen < NSAID < tramadol < opioids
(morphine, oxycodone, hydromorphone).
- Requesting a lesser dose of the same medication IF
ORDERED.
- Requesting a less intrusive route of administration
if both routes are prescribed by the provider (PO <
IV).
05/09/25 22:22
Code Status As Directed
Resuscitation Status: Full Code
05/10/25 00:30
Lactic Acid Q4H
Comment: ON ICE, CANCEL 2ND ORDER IF FIRST LACTIC ACID LEVEL <2
Abnormal Lab Results
05/09/25
20:38
RBC 4.32 L 10^6/uL
(4.70-6.10)
Hgb 12.7 L g/dL
(13.0-18.0)
Hct 37.0 L %
(39.0-52.0)
Absolute Lymphs (auto) 0.4 L 10^3/uL
(1.2-3.4)
Absolute Monos (auto) 0.7 H 10^3/uL
(0.1-0.6)
Neutrophils % 76.2 H %
(42.2-75.2)
Lymphocytes % 7.1 L %
(20.5-51.1)
Monocytes % 12.8 H %
(1.7-9.3)
Glucose 249 H mg/dl
(70-99)
Urine Bacteria (Reflex) Few A
(Negative)
Urine Glucose 4+ A
(Negative)
Urine Albumin (Reflex) 3+ A
(Neg - Trace)
SARS-CoV-2 Antigen Positive A
(Negative)
05/09/25 20:38
05/09/25 20:38
Vital Signs
Initial and Last Documented VS:
Initial Vital Signs
BP
161/79
05/09/25 20:28
Last Documented Vital Signs
Temp Pulse Resp BP Pulse Ox
100.5 F H 88 22 135/79 93
05/09/25 21:00 05/09/25 21:00 05/09/25 21:00 05/09/25 21:00 05/09/25 21:00
MDM/Problems Addressed
Differential Diagnosis Includes:
Sepsis, COVID, pneumonia, UTI
MDM/Problems Addressed:
85-year-old male with COVID, weakness, inability to walk without assistance. Admit to hospitalist.
Chronic conditions affecting care: HTN and Neurological disorder (Seizures)
*Radiology
Radiology exam reviewed: radiology read reviewed (CT head no acute findings, chest x-ray no acute findings)
*Pulse Oximetry
Patient hypoxic: no (94% room air)
*EKG
Interpreted by ED Provider?: Yes
EKG Intrepretation Date: 05/09/25
EKG Intrepretation Time: 20:32
Interpretation: abnormal
Comparison EKG: no comparison EKG present
Heart Rate: 92
Rate: normal
Rhythm: sinus
[place]: normal axis
Interval: first degree heart block
QRS Pattern: normal QRS
Ischemia: non-specific ST changes
*Hyperbaric Tech Interpretation
Rate: Hyperbaric Tech- N/A
*Critical Care Note
Total Time (30-74mins, 75-104mins- exclusive of procedures): Not Applicable
Patient Management
Social determinants of health affecting care: Living situation
Discussion with other providers: Hospitalist
Escalation/DeEscalation of care consider admission/obs:
Admit indicated
ED Attending Note
-
Portions of this chart may have been created with voice recognition software.� Occasional wrong word or��sound alike� substitutions may have occurred due to the inherent limitations of voice recognition software.
Discharge Plan
Departure
Patient Disposition: Admit
Date of Disposition: 05/09/25
Time of Disposition: 21:38
Admit to: Telemetry
Presentation/result/management discussed w/ accepting MD/DO: Hospitalist
Patient with high blood pressure during this ER visit?: Yes
Condition: Good
Covid-19: Confirmed COVID-19
Discharge Problem:
COVID-19, Weakness
Interventions
Interventions:
*Risk Screen - Suicide Last Done: 05/09/25 20:29
*General Assessment Last Done: 05/09/25 20:29
*Neglect/Abuse Screening Last Done: 05/09/25 20:29
*ED- Fall Risk Assessment Last Done: 05/09/25 20:29
ED- Cardiac Assessment Last Done: 05/09/25 21:30
ED- Neurological Assessment Last Done: 05/09/25 21:30
ED- Pulmonary Assessment Last Done: 05/09/25 21:30
[2025-05-09 20:50] LABS: % Basophils 0.4 % (0-2); % Eosinophils 3.1 % (0-6); % Immature Granulocytes 0.4 % (0-0.5); % Lymphocytes 7.1 % (20.5-51.1); % Monocytes 12.8 % (1.7-9.3); % Neutrophils 76.2 % (42.2-75.2); Absolute Eosinophils 0.2 10^3/uL (0-0.7); Absolute Lymphocytes 0.4 10^3/uL (1.2-3.4); Absolute Monocytes 0.7 10^3/uL (0.1-0.6); Absolute Neutrophils 4.2 10^3/uL (1.4-6.5); Hemoglobin 12.7 g/dL (13.0-18.0); Mean Corp Hgb Conc. 34.3 g/dL (33.0-37.0); Mean Corpuscular Hgb 29.4 pg (27.0-31.0); Mean Corpuscular Volume 85.6 fL (80.0-94.0); Mean Platelet Volume 9.6 fL (7.4-10.4); Nucleated Red Blood Cells % 0 % (-); Platelet Count 177 10^3/uL (130-400); Red Blood Cell Count 4.32 10^6/uL (4.70-6.10); Red Cell Dist. Width 13.4 % (11.5-14.5); White Blood Cell Count 5.5 10^3/uL (4.8-10.8)
[2025-05-09 20:57] LABS: Urine Albumin 3+ (Neg - Trace); Urine Bilirubin Negative (Negative); Urine Character Clear (Clear); Urine Color Yellow; Urine Glucose 4+ (Negative); Urine Ketone Negative (Negative); Urine Leukocyte Negative (Negative); Urine Nitrite Negative (Negative); Urine Occult Blood Negative (Negative); Urine Urobilinogen Negative (Neg - 1+)
[2025-05-09 21:00] VITALS: BP 135/79
[2025-05-09 21:03] LABS: COVID-19 Antigen Positive (Negative); Urine Squamous Cell 0-2 /LPF (Few)
[2025-05-09 21:04] LABS: Lactic Acid 1.5 mmol/L (0.7-2.0)
[2025-05-09 21:05] LABS: Urine Bacteria Few (Negative); Urine Red Blood Cell 0-2 /HPF (0-2); Urine White Cell 0-2 /HPF (0-5)
[2025-05-09 21:06] LABS: ALT (SGPT) 27 U/L (0-50); AST (SGOT) 29 U/L (17-59); Albumin 4.5 g/dl (3.5-5.0); Alkaline Phosphatase 84 U/L (38-126); Blood Urea Nitrogen 19 mg/dl (9-20); Calcium 9.6 mg/dl (8.4-10.2); Carbon Dioxide 24 mmol/L (22-30); Chloride 103 mmol/L (98-107); Estimated Creatinine Clearance 64 ml/min; Glucose 249 mg/dl (70-99); Potassium 4.1 mmol/L (3.5-5.1); Sodium 137 mmol/L (135-145); Total Bilirubin 0.5 mg/dl (0.2-1.3); Total Protein 7.3 g/dl (6.3-8.2); eGFR > 60.00
[2025-05-09] MEDS: TYLENOL 650 MG PO (21:25)
--- NOTE | 2025-05-09 21:43 | EDRN ---
Updated and patient about results and Dr. Herrmann in to go over plan for admission
--- NOTE | 2025-05-09 21:48 | HPS.HSE ---
Family Physician
-
Family Physician: NOT KNOW UNKNOWN - PT DOES
Chief Complaint
-
Weakness
History of Present Illness
This is an 85-year-old who has past medical history significant for CAD status post CABG, permanent atrial fibrillation on anticoagulation, BPH with recurrent urinary tract infections, hypertension, seizure disorder not currently on any
antiepileptics anymore who presents to the emergency department with acute onset of weakness this morning.
According spouse she had come down with an illness a few days ago. She had high fevers and some shortness of breath. She fell she and even may have passed it onto him. Patient has some chronic cough but over the last few days has had more
significant coughing. He denies that shortness of breath. Denies fevers or chills at home. No nausea vomiting or diarrhea. He denies any new urinary symptoms and denies any dysuria flank pain hematuria frequency or urgency. Today his was
trying to help him to ambulate it became more more difficult as he became weaker and weaker. There was no loss of consciousness. He did not fall or pass out. He denied any focal neurological deficits. He has increased cough without significant
production. Denies any chest pain. Denies palpitations lightheadedness dizziness. He denies any increasing lower extremity edema.
In the Emergency Department the patient was febrile on repeat 5, blood pressure was 12/12/2028 with a pulse of 88 satting 93% on room air. His chest x-ray is clear.
UA was negative. COVID was positive. Influenza negative.
ECG shows sinus rhythm at rate of 94 with 4 degree AV block on T1 prior.
CT of the head shows no acute interval changes.
CBC was unremarkable with normal white count, hemoglobin 12.7 and blood count of 477. Electrolytes were all within normal limits. BUN/creatinine were also normal. Glucose was 240.
Medical History
Past Medical History
Past Medical History: Reports Arrhythmia (Permanent A-fib), CAD, HTN, Hypercholesterolemia, IDDM and Seizures
Additional Past Medical History:
Kidney stones
Past Surgical History: Reports Appendectomy and Cardiac (CABG)
Social History
Tobacco: Non-smoker
Alcohol: None
Drug: None
Personal:
Living: With Family
Employment: Retired
Family History
Family History: Not pertinent
Allergies / Home Medications
Allergies reflects when Allergies were last updated in [facility].
Home Medications with original date entered in [facility]
Allergy/Medication List:
Allergies
Allergy/AdvReac Type Severity Reaction Status Date / Time
lisinopril Allergy Unknown Verified 05/22/21 16:11
Home Medications
One Daily For Men Tablet 1 tab PO DAILY Supplement 03/02/11
cholecalciferol (vitamin D3) 25 mcg (1,000 unit) tablet (Vitamin D3) 1,000 unit PO HS Supplement 03/02/11
cyanocobalamin (vitamin B-12) 1,000 mcg tablet 500 mcg PO Q48H Supplement 01/26/17
rosuvastatin 10 mg tablet 10 mg PO QPM High cholesterol 01/26/17
metformin 1,000 mg tablet 1,000 mg PO BID Diabetes 04/10/17
acetaminophen 325 mg tablet 650 mg (2 x 325 mg) PO Q4HWA pain ##0 05/01/17
Core mg PO BID Heart disease/condition 03/30/19
apixaban 5 mg tablet (Eliquis) 5 mg PO BID #60 tabs 04/01/19
docosahexaenoic acid (dha)-epa 120 mg-180 mg capsule 1 cap PO DAILY Supplement 12/29/19
losartan 50 mg tablet 100 mg PO HS Blood pressure 12/29/19
ezetimibe 10 mg tablet 10 mg PO HS High cholesterol 04/30/21
amlodipine 5 mg tablet 5 mg PO DAILY #30 tabs 05/03/21
cephalexin 250 mg capsule 250 mg PO DAILY Infection ##0 05/03/21
glipizide 2.5 mg tablet, extended release 24 hr 2.5 mg PO DAILY Diabetes 05/03/21
insulin glargine 100 unit/mL subcutaneous solution (Lantus U-100 Insulin) 12 units (0.17 mL) SQ HS Diabetes ##0 05/03/21
Review of Systems
-
History Source: Patient and Family
Constitutional: Reports Fever and Fatigue
EENT: Reports No Symptoms
Respiratory: Reports Cough
Cardiac: Reports No Symptoms
Abdomen/GI: Reports Nausea
: Reports No Symptoms
Musculoskeletal: Reports No Symptoms
Skin: Reports No Symptoms
Neurological: Reports Weakness
Endocrine: Reports No Symptoms
Hematologic/Lymphatic: Reports No Symptoms
Psych: Reports No Symptoms
Physical Exam
Vital Signs
Vital Signs
Temp Pulse Resp BP Pulse Ox
100.5 F H 88 22 135/79 93
05/09/25 21:00 05/09/25 21:00 05/09/25 21:00 05/09/25 21:00 05/09/25 21:00
Physical Exam
General: No Apparent Distress, Comfortable and Conversant
HEENT: NormoCephalic, Anicteric, Moist mucous membranes and Atraumatic
Respiratory: Clear
Cardiac: S1/S2 and Irregular Rhythm
Breast: Deferred by me
GI: Soft, Non Tender, Non Distended and Normal Bowel Sounds
Rectal: Deferred by Provider
Genito-urinary: Clear Urine and No costovertebral tender
Musculoskeletal: No Clubbing, No Cyanosis and No Edema
Skin: Warm
Neuro: AO x 3 and Nonfocal/grossly intact
Hematologic/Lymphatic: No Lymphadenopathy
Psych: Calm
Laboratory Results
-
05/09/25 20:38
05/09/25 20:38
Laboratory Results
Lactic Acid 1.5 mmol/L (0.7-2.0) 05/09/25 20:38
Total Bilirubin 0.5 mg/dl (0.2-1.3) 05/09/25 20:38
AST 29 U/L (17-59) 05/09/25 20:38
ALT 27 U/L (0-50) 05/09/25 20:38
Alkaline Phosphatase 84 U/L (38-126) 05/09/25 20:38
Data Reviewed
-
Diagnostic Radiology: Image Personally Visualized and interpreted and Report Reviewed by me
CT Scan: Report Reviewed by me
Medical Tests (Nuc Med, Echo, EKG etc): Image Personally Visualized and interpreted
Lab Data: Labs Reviewed by me
Old Records: Reviewed
Impression/Plan
-
IMPRESSION:
85-year-old male with history of CAD status post CABG, permanent atrial fibrillation on anticoagulation, insulin-dependent diabetes, hypertension and BPH with recurrent urinary tract infections presenting with severe weakness. Family member with
recent upper respiratory symptoms and fever and patient now found to be COVID 19 positive. Chest x-ray is clear. He is satting 93 to 95% on room air. No increased work of breathing. U/A is negative for infection. CBC and electrolytes are
actually unremarkable. ECG shows no ischemia and sinus.
PLAN:
COVID-19 infection -fever, weakness, SpO2 < 94%. Patient with significant risk factors including atrial fibrillation, chronic weakness, insulin-dependent diabetes, hypertension.
- Admit to MedSurg
-Isolation precautions
-Given no hypoxia < 91%, hold off steroids at this time
-remdesivir, will avoid Paxlovid due to interactions with medications
-Orthostatic vital signs
-Gentle hydration
- supportive measures
-PT consult
DM II -patient on NovoLog 4 3 times daily AC as well as Lantus 14 at bedtime at home.
-Will hold is metformin for now
-Continue glipizide
-Continue Lantus 10 at bedtime for now
-Aspart 4 3 times daily AC
-Low-dose sliding scale
AFIB - permanent afib, rate controlled
- continue carvedilol
- continue apixaban
HTN
- continue amlodipine and losartan and unless found to be orthostatic
CAD
- continue the statin and zetia
DVT PPX - on apixaban
Code status - full code
[2025-05-09 22:00] VITALS: BP 162/72
[2025-05-09 23:00] VITALS: BP 123/65
[2025-05-09] MEDS: LANTUS 0.1 UNITS SC (23:10)
[2025-05-09 23:13] LABS: Glucose - Point of Care 193 mg/dl (70-99)
[2025-05-09 23:33] VITALS: BMI 32.6
[2025-05-09 23:34] VITALS: BP 148/78
[2025-05-10 00:09] VITALS: BMI 32.6
[2025-05-10] MEDS: LR 1000 IV (00:46)
[2025-05-10] MEDS: VEKLURY 250 MG IV ×2 (00:47→13:34)
[2025-05-10] MEDS: ROBITUSSIN DM 10 ML PO ×3 (03:17→15:14)
[2025-05-10 05:38] VITALS: BMI 32.6
[2025-05-10 06:25] LABS: ALT (SGPT) 24 U/L (0-50); AST (SGOT) 26 U/L (17-59); Albumin 4.1 g/dl (3.5-5.0); Alkaline Phosphatase 67 U/L (38-126); Magnesium 1.5 mg/dl (1.6-2.3); Total Bilirubin 0.4 mg/dl (0.2-1.3); Total Protein 6.6 g/dl (6.3-8.2)
[2025-05-10 07:00] VITALS: BP 139/82
--- NOTE | 2025-05-10 08:00 | W.PN.HOSP.TC ---
Today's Communication/Plan
-
Continue remdesivir
Assessment / Plan
Assessment / Plan
Impression:
85-year-old male with history of CAD status post CABG, permanent atrial fibrillation on anticoagulation, insulin-dependent diabetes, hypertension and BPH with recurrent urinary tract infections presenting with severe weakness. Family member with
recent upper respiratory symptoms and fever and patient now found to be COVID 19 positive. Chest x-ray is clear. He is satting 93 to 95% on room air. No increased work of breathing. U/A is negative for infection. CBC and electrolytes are
actually unremarkable. ECG shows no ischemia and sinus.
Patient started on remdesivir
Physical therapy consulted
Assessment/plan:
COVID-19 infection -
fever, weakness, SpO2 < 94%. Patient with significant risk factors including atrial fibrillation, chronic weakness, insulin-dependent diabetes, hypertension.
Continue remdesivir.
Patient currently room air
Physical therapy,
DM II -patient on NovoLog 4 3 times daily AC as well as Lantus 14 at bedtime at home.
-Will hold is metformin for now
-Continue glipizide
-Continue Lantus 10 at bedtime for now
-Aspart 4 3 times daily AC
-Low-dose sliding scale
AFIB - permanent afib, rate controlled
- continue carvedilol
- continue apixaban
HTN
- continue amlodipine and losartan and unless found to be orthostatic
CAD
- continue the statin and zetia
DVT PPX - on apixaban
CODE STATUS: Full code
DVT prophylaxis: apixaban
Diet: DM Diet
Disposition: Continue remdesivir
Total time spent on today's encounter was 65 minutes which included time spent in counseling the patient/family regarding diagnosis and treatment plan as listed above, goals of care, and symptom management. Case was discussed with nursing staff,
specialists, and care coordinators/case management. All labs and imaging personally reviewed by me. Remainder the time spent in detailed review of previous records, lab data, imaging, and other medical provider documentation.
Anticipated Discharge: > 48 hours
Subjective/Interval History
-
Date of Service: May 10, 2025
Patient seen and examined at bedside, patient was sitting in a chair, still with coughing but denies any chest pain.
Overall feeling weak.
Objective Data
-
Labs:
Laboratory Results
05/09/25 05/10/25
20:38 05:16
WBC 5.5
Hgb 12.7 L
Hct 37.0 L
Plt Count 177
Sodium 137
Potassium 4.1
Chloride 103
Carbon Dioxide 24
BUN 19
Creatinine 0.9
Glucose 249 H
Calcium 9.6
Total Bilirubin 0.5 0.4
AST 29 26
ALT 27 24
Alkaline Phosphatase 84 67
Vital Signs:
Vital Signs
Temp Pulse Resp BP Pulse Ox
99.6 F 78 24 148/78 96
05/09/25 23:34 05/09/25 23:34 05/09/25 23:34 05/09/25 23:34 05/10/25 03:29
I&O
05/09/25 05/10/25 05/11/25
06:59 06:59 06:59
Intake Total 120 / 120
Balance 120 / 120
Physical Exam
-
General: Well Developed, Well Nourished, No Apparent Distress and Comfortable
HEENT: Normocephalic, Atraumatic, Moist Mucous Membranes, No Ptosis, PERRLA and Nose Appears Normal
Respiratory: Rales, Rhonchi and Non Labored Respirations
Cardiac: S1/S2 and Irregular Rhythm
Breast: Deferred by me
GI: Soft, Nontender, Nondistended and Normal Bowel Sounds
Genito-urinary: No Costovertebral Tender
Musculoskeletal: No Clubbing, No Cyanosis and No Edema
Skin: Warm
Neuro: Awake, Alert, Oriented, AO x 3 and No Motor Deficits
Psych: Calm
Data Reviewed
-
Diagnostic Radiology: Image personally visualized and interpreted and Report Reviewed by me
CT Scan: Image personally visualized and interpreted and Report Reviewed by me
Ultrasound: Image personally visualized and interpreted and Report Reviewed by me
MRI: Image personally visualized and interpreted and Report Reviewed by me
Medical Tests (Nuc Med, Echo etc): Image personally visualized and interpreted and Report Reviewed by me
Labs: Labs Reviewed by me
Old Records: Reviewed
[2025-05-10 08:01] LABS: Glucose - Point of Care 195 mg/dl (70-99)
[2025-05-10] MEDS: GLUCOTROL XL (EXTENDED RELEASE) 2.5 MG PO (08:23)
[2025-05-10] MEDS: VISBIOME 1 CAP PO (08:30)
[2025-05-10] MEDS: NORVASC 7.5 MG PO (08:30)
[2025-05-10] MEDS: VITAMIN C 250 MG PO (08:31)
[2025-05-10] MEDS: VIBRAMYCIN 100 MG PO (08:32)
[2025-05-10] MEDS: ELIQUIS 5 MG PO ×2 (08:32→21:38)
[2025-05-10] MEDS: MUCINEX 600 MG PO ×2 (08:32→21:36)
[2025-05-10] MEDS: VITAMIN B-12 1000 MCG PO (08:33)
[2025-05-10] MEDS: COREG 25 MG PO ×2 (08:33→21:36)
[2025-05-10] MEDS: NOVOLOG FLEXPEN-LOW RESISTANCE 1 UNITS SC (08:34)
[2025-05-10] MEDS: NOVOLOG FLEXPEN 4 UNITS SC ×3 (08:34→17:02)
[2025-05-10 11:54] LABS: Glucose - Point of Care 239 mg/dl (70-99)
[2025-05-10] MEDS: NOVOLOG FLEXPEN-LOW RESISTANCE 2 UNITS SC (13:33)
[2025-05-10 15:21] VITALS: BP 150/92
[2025-05-10 16:19] LABS: Glucose - Point of Care 267 mg/dl (70-99)
--- NOTE | 2025-05-10 16:20 | CM ---
Call with spouse to for IA
Pt resides with his spouse at [address] [facility] [address]
2SH with 4 PERRY, first floor set up, regular bed
Pt is indep with ambulation in the home short distances with use of a WW
He required add'l support for ambulation while in the community, 1 assist
Requires supervision for showering due to falls risk, indep with other pers care tasks
PCP- Jeevan Woo
Rx- Michael
Spouse notes pt does not do well at SNF
Has a private pay caregiver who is retired nurse who provides respite care a few times weekly
Will likely increase her services and if skilled needs on dc, [facility] if preferred [facility] agency
Pt is COVID+ and on precautions
No home O2 baseline
Discharge Disposition- anticipate home with private duty [facility] and VN
[2025-05-10 16:41] VITALS: BP 158/81; PULSE 81
[2025-05-10] MEDS: VITAMIN D3 (cholecalciferol) 25 MCG PO (17:01)
[2025-05-10] MEDS: NOVOLOG FLEXPEN-LOW RESISTANCE 3 UNITS SC (17:02)
[2025-05-10] MEDS: CRESTOR 20 MG PO (17:04)
[2025-05-10 19:23] VITALS: BP 132/77
[2025-05-10] MEDS: ZOLOFT 50 MG PO (21:36)
[2025-05-10] MEDS: ZETIA 10 MG PO (21:36)
[2025-05-10] MEDS: COZAAR 100 MG PO (21:39)
[2025-05-10 21:42] LABS: Glucose - Point of Care 221 mg/dl (70-99)
[2025-05-10] MEDS: LANTUS 0.1 UNITS SC (21:42)
[2025-05-10 23:25] VITALS: BP 136/76
[2025-05-11 07:28] LABS: Hematocrit 37.5 % (39.0-52.0); Hemoglobin 13.1 g/dL (13.0-18.0); Mean Corp Hgb Conc. 34.9 g/dL (33.0-37.0); Mean Corpuscular Hgb 29.4 pg (27.0-31.0); Mean Corpuscular Volume 84.3 fL (80.0-94.0); Platelet Count 181 10^3/uL (130-400); Red Blood Cell Count 4.45 10^6/uL (4.70-6.10); Red Cell Dist. Width 13.7 % (11.5-14.5); White Blood Cell Count 6.7 10^3/uL (4.8-10.8)
[2025-05-11 07:50] LABS: ALT (SGPT) 25 U/L (0-50); AST (SGOT) 27 U/L (17-59); Albumin 3.9 g/dl (3.5-5.0); Alkaline Phosphatase 58 U/L (38-126); Blood Urea Nitrogen 26 mg/dl (9-20); Calcium 9.1 mg/dl (8.4-10.2); Carbon Dioxide 24 mmol/L (22-30); Chloride 103 mmol/L (98-107); Estimated Creatinine Clearance 63 ml/min; Glucose 202 mg/dl (70-99); Potassium 3.6 mmol/L (3.5-5.1); Sodium 135 mmol/L (135-145); Total Bilirubin 0.4 mg/dl (0.2-1.3); Total Protein 6.3 g/dl (6.3-8.2); eGFR > 60.00
[2025-05-11] MEDS: VITAMIN C 250 MG PO (08:06)
[2025-05-11] MEDS: VISBIOME 1 CAP PO (08:06)
[2025-05-11] MEDS: ELIQUIS 5 MG PO (08:06)
[2025-05-11] MEDS: GLUCOTROL XL (EXTENDED RELEASE) 2.5 MG PO (08:06)
[2025-05-11] MEDS: MUCINEX 600 MG PO ×2 (08:06→21:18)
[2025-05-11] MEDS: VITAMIN B-12 1000 MCG PO (08:06)
[2025-05-11] MEDS: VIBRAMYCIN 100 MG PO (08:06)
[2025-05-11] MEDS: COREG 25 MG PO ×2 (08:07→21:18)
[2025-05-11] MEDS: NORVASC 7.5 MG PO (08:07)
[2025-05-11 08:16] LABS: Glucose - Point of Care 197 mg/dl (70-99)
[2025-05-11] MEDS: NOVOLOG FLEXPEN 4 UNITS SC ×3 (08:16→17:28)
[2025-05-11] MEDS: NOVOLOG FLEXPEN-LOW RESISTANCE 1 UNITS SC (08:16)
[2025-05-11] MEDS: ROBITUSSIN DM 10 ML PO (08:20)
[2025-05-11 08:36] VITALS: BP 137/74; BP 143/76; BP 171/93; PULSE 83; PULSE 85; PULSE 88
[2025-05-11 12:28] LABS: Glucose - Point of Care 289 mg/dl (70-99)
[2025-05-11] MEDS: NOVOLOG FLEXPEN-LOW RESISTANCE 3 UNITS SC (12:31)
--- NOTE | 2025-05-11 14:13 | W.PN.HOSP.TC ---
Today's Communication/Plan
-
Infectious disease consult
Assessment / Plan
Assessment / Plan
Impression:
85-year-old male with history of CAD status post CABG, permanent atrial fibrillation on anticoagulation, insulin-dependent diabetes, hypertension and BPH with recurrent urinary tract infections presenting with severe weakness. Family member with
recent upper respiratory symptoms and fever and patient now found to be COVID 19 positive. Chest x-ray is clear. He is satting 93 to 95% on room air. No increased work of breathing. U/A is negative for infection. CBC and electrolytes are
actually unremarkable. ECG shows no ischemia and sinus.
Patient started on remdesivir
Physical therapy consulted recommended home PT.
1/2 positive blood culture, infectious disease consult.
Assessment/plan:
COVID-19 infection -
fever, weakness, SpO2 < 94%. Patient with significant risk factors including atrial fibrillation, chronic weakness, insulin-dependent diabetes, hypertension.
Continue remdesivir.
Patient currently room air
Physical therapy,
05/11
Physical therapy consulted recommended home PT.
1/2 positive blood culture, infectious disease consult.
DM II -patient on NovoLog 4 3 times daily AC as well as Lantus 14 at bedtime at home.
-Will hold is metformin for now
-Continue glipizide
-Continue Lantus 10 at bedtime for now
-Aspart 4 3 times daily AC
-Low-dose sliding scale
AFIB - permanent afib, rate controlled
- continue carvedilol
- continue apixaban
HTN
- continue amlodipine and losartan and unless found to be orthostatic
CAD
- continue the statin and zetia
DVT PPX - on apixaban
CODE STATUS: Full code
DVT prophylaxis: apixaban
Diet: DM Diet
Disposition: ID consult
Total time spent on today's encounter was 65 minutes which included time spent in counseling the patient/family regarding diagnosis and treatment plan as listed above, goals of care, and symptom management. Case was discussed with nursing staff,
specialists, and care coordinators/case management. All labs and imaging personally reviewed by me. Remainder the time spent in detailed review of previous records, lab data, imaging, and other medical provider documentation.
Anticipated Discharge: 24 - 48 hours
Subjective/Interval History
-
Date of Service: May 11, 2025
Patient seen and examined at bedside, at bedside, patient denied any chest pain or shortness of breath, no abdominal pain, no nausea, no vomiting, no diarrhea or constipation.
Physical therapy consulted.
Recommended home PT.
Objective Data
-
Labs:
Laboratory Results
05/11/25
07:12
WBC 6.7
Hgb 13.1
Hct 37.5 L
Plt Count 181
Sodium 135
Potassium 3.6
Chloride 103
Carbon Dioxide 24
BUN 26 H
Creatinine 0.9
Glucose 202 H
Calcium 9.1
Total Bilirubin 0.4
AST 27
ALT 25
Alkaline Phosphatase 58
Vital Signs:
Vital Signs
Temp Pulse Resp BP Pulse Ox
99 F 85 17 143/76 93
05/11/25 08:36 05/11/25 08:07 05/11/25 08:36 05/11/25 08:07 05/11/25 08:36
I&O
05/10/25 05/11/25 05/12/25
06:59 06:59 06:59
Intake Total 120 / 120 2800 / 2800
Balance 120 / 120 2800 / 2800
Physical Exam
-
General: Well Developed, Well Nourished, No Apparent Distress and Comfortable
HEENT: Normocephalic, Atraumatic, Moist Mucous Membranes, No Ptosis, PERRLA and Nose Appears Normal
Respiratory: Rales, Rhonchi and Non Labored Respirations
Cardiac: S1/S2 and Irregular Rhythm
Breast: Deferred by me
GI: Soft, Nontender, Nondistended and Normal Bowel Sounds
Genito-urinary: No Costovertebral Tender
Musculoskeletal: No Clubbing, No Cyanosis and No Edema
Skin: Warm
Neuro: Awake, Alert, Oriented, AO x 3 and No Motor Deficits
Psych: Calm
Data Reviewed
-
Diagnostic Radiology: Image personally visualized and interpreted and Report Reviewed by me
CT Scan: Image personally visualized and interpreted and Report Reviewed by me
Ultrasound: Image personally visualized and interpreted and Report Reviewed by me
MRI: Image personally visualized and interpreted and Report Reviewed by me
Medical Tests (Nuc Med, Echo etc): Image personally visualized and interpreted and Report Reviewed by me
Labs: Labs Reviewed by me
Old Records: Reviewed
--- NOTE | 2025-05-11 14:35 | CM ---
Reviewed the chart notes and spoke with the patient's spouse via telephone. Reviewed PT notes recommendation of home health. Patient's spouse happy with [facility] in the past and selected. Referral sent. CM continues to be available to
patient/family and is monitoring medical plan for needs at discharge.
Plan: Discharge to home with [facility] services when medically stable.
--- NOTE | 2025-05-11 14:42 | CON.ID ---
Consultation
-
Date/Time Consultation Requested: 05/11/2025 0720
Date/Time Consultation Performed: 05/11/2025 1420
Requesting Provider: Dr. Doyle
Performing Provider: Dr. Rosen
Reason for Consultation: COVID-19
Chief Complaint / Past History
History of Present Illness
Sami Mcarthur is an 85-year-old man being evaluated at the request of Dr. Doyle regarding COVID-19. History is obtained from chart review, along with patient interview.
Patient reports that several days ago his felt ill with fever and shortness of breath, along with some cough, but no fevers or chills. Thereafter, the patient began to feel ill, with progressive weakness and fatigue. On 05/09, his tried to
help him ambulate, but it became more difficult and ultimately EMS was called, and he was brought to the emergency room for further evaluation.
Here, he was found to be COVID positive. He was started on remdesivir. Infectious Diseases asked to comment upon further antimicrobial therapy. At the present time, he notes he continues to feel weak, but denies any shortness of breath. He
reports slight cough. No significant sputum production. The patient is vaccinated against COVID-19
Past History
Additional Past Surgical History:
A-fib
CAD
HTN
DM type II
Nephrolithiasis
BPH
Allergy History:
lisinopril Allergy (Verified 05/09/25 20:33)
Unknown
Current Antibiotics:
Doxycycline 100 mg daily
Remdesivir (day #3)
Social History
Tobacco: Non-Smoker
Alcohol: None
Drug: None
Personal:
Living: With Family
Employment: Retired
Family History
Family History: Not Pertinent
Review of Systems
Vital Signs
Temp Pulse Resp BP Pulse Ox
99 F 85 17 143/76 95
05/11/25 08:36 05/11/25 08:07 05/11/25 08:36 05/11/25 08:07 05/11/25 14:40
Physical Exam
Physical Exam
Constitutional: No Acute Distress, Comfortable and Non-toxic
Eyes: No Conjunctival Hemorrhage and Sclera Anicteric
Oral: No Thrush and No Ulcers
Cardiovascular: S1/S2; Negative S3/S4
Pulmonary: Coarse, Non Labored and Other (Few basilar crackles)
Gastrointestinal: Soft, Non Tender, Non Distended and Normal Bowel Sounds
Extremities: Negative Edema, Cyanosis or Erythema
Skin: Warm and Dry; Negative Rash or Jaundice
Neurological: Awake and Alert
Psychological: Calm
Lab / Diagnostic Study Results
05/11/25 07:12
05/11/25 07:12
Abs Immat Gran (auto) 0.0 10^3/uL (0-0.05) 05/09/25 20:38
Absolute Neuts (auto) 4.2 10^3/uL (1.4-6.5) 05/09/25 20:38
Absolute Lymphs (auto) 0.4 10^3/uL (1.2-3.4) L 05/09/25 20:38
Absolute Monos (auto) 0.7 10^3/uL (0.1-0.6) H 05/09/25 20:38
Absolute Basos (auto) 0.0 10^3/uL (0-0.2) 05/09/25 20:38
Immature Gran % 0.4 % (0-0.5) 05/09/25 20:38
Neutrophils % 76.2 % (42.2-75.2) H 05/09/25 20:38
Lymphocytes % 7.1 % (20.5-51.1) L 05/09/25 20:38
Monocytes % 12.8 % (1.7-9.3) H 05/09/25 20:38
Eosinophils % 3.1 % (0-6) 05/09/25 20:38
Basophils % 0.4 % (0-2) 05/09/25 20:38
Lactic Acid Cancelled 05/10/25 00:30
Ur Squamous Epith Cells 0-2 /LPF (Few) 05/09/25 20:38
Microbiology Results
Micro:
05/09/25 20:56 Blood Culture - Preliminary
Blood/Venous Coagulase neg. staphylococcus
Additional testing on request
Gram Stain - Preliminary
05/09/25 20:38 Blood Culture - Preliminary
Blood/Venous No Growth in 24 hours- Final report to follow
05/09/25 20:38 Influenza Types A & B (TOREY) - Final
Nasal Swab Negative for Influenza A & B, NAAT
Negative results must be combined with clinical observations
and patient history.
Nucleic Acid Amplification test (NAAT)performed on the
AC Immun[employer] SA platform.
Imaging:
CXR (2 view): No convincing focal infiltrates. No significant pleural effusion. No visualized pneumothorax. Please see full dictation for additional detail. Film personally viewed.
Assessment / Plan
COVID-19
Generalized weakness and fatigue
Low-grade fevers
A-fib
CAD
HTN
DM type II
Nephrolithiasis
BPH
Recommendations:
Patient fully vaccinated; likelihood of severe disease low. Patient without O2 requirement.
Discontinue further remdesivir.
Continue covid therapy with paxlovid x 5 days.
Potential interactions with current meds possible:
- change apixiban to 2.5 mg BID until 3 days after completing paxlovid.
- hold simvastatin until completed paxlovid
Follow white count and temperature curve.
[2025-05-11 15:01] VITALS: BP 127/69
[2025-05-11 17:21] LABS: Glucose - Point of Care 206 mg/dl (70-99)
[2025-05-11] MEDS: NOVOLOG FLEXPEN-LOW RESISTANCE 2 UNITS SC (17:28)
[2025-05-11] MEDS: VITAMIN D3 (cholecalciferol) 25 MCG PO (17:29)
[2025-05-11 21:08] LABS: Glucose - Point of Care 223 mg/dl (70-99)
[2025-05-11] MEDS: ZOLOFT 50 MG PO (21:18)
[2025-05-11] MEDS: ELIQUIS 2.5 MG PO (21:18)
[2025-05-11] MEDS: ZETIA 10 MG PO (21:18)
[2025-05-11] MEDS: PAXLOVID 2X150 MG-100 MG DOSE PACK 1 DOSE PO (21:18)
[2025-05-11] MEDS: COZAAR 100 MG PO (21:18)
[2025-05-11] MEDS: LANTUS 0.1 UNITS SC (21:19)
[2025-05-11 23:26] VITALS: BP 156/84
[2025-05-12 06:26] LABS: Hematocrit 35.5 % (39.0-52.0); Hemoglobin 12.1 g/dL (13.0-18.0); Mean Corp Hgb Conc. 34.1 g/dL (33.0-37.0); Mean Corpuscular Hgb 29.2 pg (27.0-31.0); Mean Corpuscular Volume 85.7 fL (80.0-94.0); Mean Platelet Volume 10.2 fL (7.4-10.4); Platelet Count 176 10^3/uL (130-400); Red Blood Cell Count 4.14 10^6/uL (4.70-6.10); Red Cell Dist. Width 13.9 % (11.5-14.5); White Blood Cell Count 8.2 10^3/uL (4.8-10.8)
[2025-05-12 06:37] LABS: ALT (SGPT) 22 U/L (0-50); AST (SGOT) 25 U/L (17-59); Albumin 3.6 g/dl (3.5-5.0); Alkaline Phosphatase 57 U/L (38-126); Blood Urea Nitrogen 41 mg/dl (9-20); Calcium 8.8 mg/dl (8.4-10.2); Carbon Dioxide 24 mmol/L (22-30); Chloride 102 mmol/L (98-107); Estimated Creatinine Clearance 57 ml/min; Glucose 191 mg/dl (70-99); Potassium 3.6 mmol/L (3.5-5.1); Sodium 135 mmol/L (135-145); Total Bilirubin 0.5 mg/dl (0.2-1.3); eGFR > 60.00
[2025-05-12 07:10] VITALS: BP 139/75
[2025-05-12 08:08] LABS: Glucose - Point of Care 180 mg/dl (70-99)
[2025-05-12] MEDS: MUCINEX 600 MG PO ×2 (08:55→21:07)
[2025-05-12] MEDS: PAXLOVID 2X150 MG-100 MG DOSE PACK 1 DOSE PO ×2 (08:55→21:07)
[2025-05-12] MEDS: TESSALON PERLES 100 MG PO (08:55)
[2025-05-12] MEDS: COREG 25 MG PO ×2 (08:55→21:07)
[2025-05-12] MEDS: ELIQUIS 2.5 MG PO ×2 (08:55→21:07)
[2025-05-12] MEDS: VISBIOME 1 CAP PO (08:55)
[2025-05-12] MEDS: VIBRAMYCIN 100 MG PO (08:55)
[2025-05-12] MEDS: NORVASC 7.5 MG PO (08:55)
[2025-05-12] MEDS: VITAMIN C 250 MG PO (08:55)
[2025-05-12] MEDS: NOVOLOG FLEXPEN 4 UNITS SC ×4 (08:57→22:10)
[2025-05-12] MEDS: VITAMIN B-12 1000 MCG PO (08:57)
[2025-05-12] MEDS: NOVOLOG FLEXPEN-LOW RESISTANCE 1 UNITS SC (08:57)
[2025-05-12] MEDS: GLUCOTROL XL (EXTENDED RELEASE) 2.5 MG PO (08:57)
[2025-05-12 10:16] LABS: Glucose - Point of Care 204 mg/dl (70-99)
--- NOTE | 2025-05-12 10:34 | PN.CDI ---
CDI
- -
CDI:
Physician Documentation Request
Admit Date: 05/09/25 22:31
Dear Doctor Yanira,
Please review the following and provide your response in the progress notes.
Clinical Indicators:
- per ER Physician 'COVID, weakness, inability to walk without assistance'
- Patient admit for Covid-19
- Labs as follows:
Laboratory Tests
05/10/25
05:16
Magnesium 1.5 L
Please provide a diagnosis for the above lab values that were monitored and treatment rendered:
Hypomagnesemia
Clinically insignificant abnormal lab value
Other (please specify)
Use of terms such as suspected, likely, concern for, or probable (associated with a specific diagnosis that is being evaluated, monitored, or treated as if it exists) are acceptable and can be coded in the inpatient setting, when documented at the
time of discharge.
Thank you,
Gloria Vargas RN
CDI Specialist
Please use your independent medical judgment in providing your response.
--- NOTE | 2025-05-12 10:56 | W.PN.HOSP.TC ---
Today's Communication/Plan
-
Start IV fluid
Assessment / Plan
Assessment / Plan
Impression:
85-year-old male with history of CAD status post CABG, permanent atrial fibrillation on anticoagulation, insulin-dependent diabetes, hypertension and BPH with recurrent urinary tract infections presenting with severe weakness. Family member with
recent upper respiratory symptoms and fever and patient now found to be COVID 19 positive. Chest x-ray is clear. He is satting 93 to 95% on room air. No increased work of breathing. U/A is negative for infection. CBC and electrolytes are
actually unremarkable. ECG shows no ischemia and sinus.
Patient started on remdesivir
Physical therapy consulted recommended home PT.
1/2 positive blood culture, infectious disease consult.
Infectious disease discontinued remdesivir, started Paxlovid
Assessment/plan:
COVID-19 infection -
fever, weakness, SpO2 < 94%. Patient with significant risk factors including atrial fibrillation, chronic weakness, insulin-dependent diabetes, hypertension.
Continue remdesivir.
Patient currently room air
Physical therapy,
05/11
Physical therapy consulted recommended home PT.
1/2 positive blood culture, infectious disease consult.
05/12
Remdesivir discontinued.
Started Paxlovid
Hypertension
- continue amlodipine and losartan and unless found to be orthostatic
05/12
Blood pressure is low.
Start IV fluid
DM II -patient on NovoLog 4 3 times daily AC as well as Lantus 14 at bedtime at home.
-Will hold is metformin for now
-Continue glipizide
-Continue Lantus 10 at bedtime for now
-Aspart 4 3 times daily AC
-Low-dose sliding scale
AFIB - permanent afib, rate controlled
-Currently sinus rhythm. Continue carvedilol with holding parameters
- continue apixaban
CAD
- continue the statin and zetia
CODE STATUS: Full code
DVT prophylaxis: apixaban
Diet: DM Diet
Disposition: Start IV fluid
Total time spent on today's encounter was 65 minutes which included time spent in counseling the patient/family regarding diagnosis and treatment plan as listed above, goals of care, and symptom management. Case was discussed with nursing staff,
specialists, and care coordinators/case management. All labs and imaging personally reviewed by me. Remainder the time spent in detailed review of previous records, lab data, imaging, and other medical provider documentation.
Anticipated Discharge: 24 - 48 hours
Subjective/Interval History
-
Date of Service: May 12, 2025
Patient seen and examined at bedside, discussed with at bedside denies any chest pain or shortness of breath, no abdominal pain, no nausea, no vomiting, no diarrhea or constipation.
Later on blood pressure dropped, started IV fluid.
Objective Data
-
Labs:
Laboratory Results
05/12/25
05:15
WBC 8.2
Hgb 12.1 L
Hct 35.5 L
Plt Count 176
Sodium 135
Potassium 3.6
Chloride 102
Carbon Dioxide 24
BUN 41 H
Creatinine 1.0
Glucose 191 H
Calcium 8.8
Total Bilirubin 0.5
AST 25
ALT 22
Alkaline Phosphatase 57
Vital Signs:
Vital Signs
Temp Pulse Resp BP Pulse Ox
98.2 F 77 20 139/75 90
05/12/25 07:10 05/12/25 07:10 05/12/25 07:10 05/12/25 07:10 05/12/25 07:10
I&O
05/11/25 05/12/25 05/13/25
06:59 06:59 06:59
Intake Total 2800 / 2800 360 / 360
Balance 2800 / 2800 360 / 360
Physical Exam
-
General: Well Developed, Well Nourished, No Apparent Distress and Comfortable
HEENT: Normocephalic, Atraumatic, Moist Mucous Membranes, No Ptosis, PERRLA and Nose Appears Normal
Respiratory: Rales, Rhonchi and Non Labored Respirations
Cardiac: S1/S2 and Irregular Rhythm
Breast: Deferred by me
GI: Soft, Nontender, Nondistended and Normal Bowel Sounds
Genito-urinary: No Costovertebral Tender
Musculoskeletal: No Clubbing, No Cyanosis and No Edema
Skin: Warm
Neuro: Awake, Alert, Oriented, AO x 3 and No Motor Deficits
Psych: Calm
Data Reviewed
-
Diagnostic Radiology: Image personally visualized and interpreted and Report Reviewed by me
CT Scan: Image personally visualized and interpreted and Report Reviewed by me
Ultrasound: Image personally visualized and interpreted and Report Reviewed by me
MRI: Image personally visualized and interpreted and Report Reviewed by me
Medical Tests (Nuc Med, Echo etc): Image personally visualized and interpreted and Report Reviewed by me
Labs: Labs Reviewed by me
Old Records: Reviewed
[2025-05-12] MEDS: NSS 250 IV (11:00)
[2025-05-12] MEDS: NSS 1000 IV (11:35)
--- NOTE | 2025-05-12 11:57 | W.PN.ID1 ---
Date of Service
Date of Service: May 12, 2025
Today's Communication
Continue Paxlovid.
Assessment / Plan
COVID-19
Generalized weakness and fatigue
Low-grade fevers
A-fib
CAD
HTN
DM type II
Nephrolithiasis
BPH
Recommendations:
Patient vaccinated against COVID; likelihood of severe disease low.
Continue covid therapy with paxlovid x 5 days.
Potential interactions with current meds possible:
- change apixiban to 2.5 mg BID until 3 days after completing paxlovid.
- hold simvastatin until completed paxlovid
Follow white count and temperature curve.
����������������������������������������������������������
Chief Complaint
-: Other (COVID-19)
Subjective / Review of Systems
Patient remains weak.
Vital Signs / Physical Exam
Vital Signs
Vital Signs
Temp Pulse Resp BP Pulse Ox
98.2 F 77 20 139/75 90
05/12/25 07:10 05/12/25 07:10 05/12/25 07:10 05/12/25 07:10 05/12/25 07:10
Physical Exam
Constitutional: No Acute Distress, Comfortable and Non-toxic
Eyes: Sclera Anicteric
Pulmonary: Non Labored
Gastrointestinal: Non Distended
Neurological: Awake and Alert
Psychological: Calm
Objective Data
Lab Data
Lab Results
05/12/25 05:15
05/12/25 05:15
Estimated Creat Clear 57 ml/min 05/12/25 05:15
Lactic Acid Cancelled 05/10/25 00:30
Total Bilirubin 0.5 mg/dl (0.2-1.3) 05/12/25 05:15
AST 25 U/L (17-59) 05/12/25 05:15
ALT 22 U/L (0-50) 05/12/25 05:15
Alkaline Phosphatase 57 U/L (38-126) 05/12/25 05:15
Most recent labs reviewed.
Micro Results:
05/09/25 20:38 Blood Culture - Preliminary
Blood/Venous No Growth in 48 hours- Final report to follow
05/09/25 20:56 Blood Culture - Preliminary
Blood/Venous Coagulase neg. staphylococcus
Additional testing on request
Gram Stain - Preliminary
05/09/25 20:38 Influenza Types A & B (TOREY) - Final
Nasal Swab Negative for Influenza A & B, NAAT
Negative results must be combined with clinical observations
and patient history.
Nucleic Acid Amplification test (NAAT)performed on the
[employer] platform.
Laboratory Tests
05/09/25
20:38
SARS-CoV-2 Antigen Positive A
Imaging:
CXR (2 view): No convincing focal infiltrates. No significant pleural effusion. No visualized pneumothorax. Please see full dictation for additional detail. Film personally viewed.
[2025-05-12 12:07] VITALS: BP 157/77
[2025-05-12 12:16] LABS: Glucose - Point of Care 260 mg/dl (70-99)
[2025-05-12] MEDS: NOVOLOG FLEXPEN-LOW RESISTANCE 3 UNITS SC (13:14)
--- NOTE | 2025-05-12 14:31 | PTCARENOTE ---
after breakfas pt stared feeling cold and clammy pale, not able to transfer from chair to bed; checked BG it was BG 204, BP 93/54 hr 70 temp 98.4 pox 92% RA; able to follow command but very weak; DR Mc made aware an order for Bolus fluids given,
EKG obtained.
had a large BM accident while in the chair, PT/OT came to help and get him cleaned and in the bed 1 hour after episode. BP improved later and Dr Mc updated. at bedside.
--- NOTE | 2025-05-12 14:49 | CM ---
Reviewed the chart notes and spoke with the patient's spouse via telephone. Reviewed PT recommendation of SNF. Patient's spouse agreeable. Referral sent to [facility] as patient has been there in the past. CM continues to be available to
patient/family and is monitoring medical plan for needs at discharge.
Plan: Discharge to SNF/rehab once bed secured. No precert required.
[2025-05-12 15:10] VITALS: BP 118/69
[2025-05-12 16:38] LABS: Glucose - Point of Care 241 mg/dl (70-99)
[2025-05-12] MEDS: VITAMIN D3 (cholecalciferol) 25 MCG PO (18:11)
[2025-05-12] MEDS: NOVOLOG FLEXPEN-LOW RESISTANCE 2 UNITS SC (18:11)
[2025-05-12] MEDS: ZOLOFT 50 MG PO (21:07)
[2025-05-12] MEDS: ZETIA 10 MG PO (21:07)
[2025-05-12] MEDS: COZAAR 100 MG PO (21:08)
[2025-05-12 21:50] LABS: Glucose - Point of Care 314 mg/dl (70-99)
[2025-05-12] MEDS: MELATONIN 3 MG PO (22:12)
[2025-05-12] MEDS: LANTUS 0.1 UNITS SC (22:17)
[2025-05-12 23:11] VITALS: BP 140/88
[2025-05-13 00:26] LABS: Glucose - Point of Care 239 mg/dl (70-99)
[2025-05-13] MEDS: ROBITUSSIN DM 10 ML PO (02:06)
[2025-05-13 03:10] VITALS: BP 107/62
[2025-05-13] MEDS: NSS 1000 IV (03:40)
[2025-05-13 07:10] VITALS: BP 140/74
[2025-05-13 07:20] LABS: ALT (SGPT) 19 U/L (0-50); AST (SGOT) 20 U/L (17-59); Albumin 3.2 g/dl (3.5-5.0); Alkaline Phosphatase 57 U/L (38-126); Blood Urea Nitrogen 35 mg/dl (9-20); Calcium 8.1 mg/dl (8.4-10.2); Carbon Dioxide 22 mmol/L (22-30); Chloride 107 mmol/L (98-107); Estimated Creatinine Clearance 57 ml/min; Glucose 181 mg/dl (70-99); Hematocrit 32.8 % (39.0-52.0); Hemoglobin 11.4 g/dL (13.0-18.0); Mean Corp Hgb Conc. 34.8 g/dL (33.0-37.0); Mean Corpuscular Hgb 29.6 pg (27.0-31.0); Mean Corpuscular Volume 85.2 fL (80.0-94.0); Mean Platelet Volume 10.2 fL (7.4-10.4); Platelet Count 173 10^3/uL (130-400); Potassium 3.3 mmol/L (3.5-5.1); Red Blood Cell Count 3.85 10^6/uL (4.70-6.10); Red Cell Dist. Width 13.7 % (11.5-14.5); Sodium 136 mmol/L (135-145); Total Bilirubin 0.7 mg/dl (0.2-1.3); Total Protein 5.4 g/dl (6.3-8.2); White Blood Cell Count 9.3 10^3/uL (4.8-10.8); eGFR > 60.00
[2025-05-13 08:03] LABS: Glucose - Point of Care 184 mg/dl (70-99)
[2025-05-13] MEDS: NSS IV (08:09)
[2025-05-13] MEDS: NOVOLOG FLEXPEN 4 UNITS SC ×3 (08:19→17:47)
[2025-05-13] MEDS: KCL ELIXIR 40 MEQ PO (08:20)
[2025-05-13] MEDS: NOVOLOG FLEXPEN-LOW RESISTANCE 1 UNITS SC ×2 (08:20→17:48)
[2025-05-13] MEDS: ELIQUIS 2.5 MG PO ×2 (08:21→20:12)
[2025-05-13] MEDS: VIBRAMYCIN 100 MG PO (08:21)
[2025-05-13] MEDS: GLUCOTROL XL (EXTENDED RELEASE) 2.5 MG PO (08:21)
[2025-05-13] MEDS: PAXLOVID 2X150 MG-100 MG DOSE PACK 1 DOSE PO ×2 (08:21→20:12)
[2025-05-13] MEDS: MUCINEX 600 MG PO ×2 (08:21→20:11)
[2025-05-13] MEDS: VITAMIN C 250 MG PO (08:22)
[2025-05-13] MEDS: VITAMIN B-12 1000 MCG PO (08:22)
[2025-05-13] MEDS: VISBIOME 1 CAP PO (08:22)
[2025-05-13] MEDS: COREG 25 MG PO ×2 (08:22→20:12)
[2025-05-13] MEDS: NORVASC 7.5 MG PO (08:23)
--- NOTE | 2025-05-13 10:43 | W.PN.HOSP.TC ---
Addendum entered and electronically signed by Jesusita Doyle MD 05/13/25 11:42:
Hypomagnesemia
Original Note:
Today's Communication/Plan
-
Dc home.
Assessment / Plan
Assessment / Plan
Impression:
85-year-old male with history of CAD status post CABG, permanent atrial fibrillation on anticoagulation, insulin-dependent diabetes, hypertension and BPH with recurrent urinary tract infections presenting with severe weakness. Family member with
recent upper respiratory symptoms and fever and patient now found to be COVID 19 positive. Chest x-ray is clear. He is satting 93 to 95% on room air. No increased work of breathing. U/A is negative for infection. CBC and electrolytes are
actually unremarkable. ECG shows no ischemia and sinus.
Patient started on remdesivir
Physical therapy consulted recommended home PT.
1/2 positive blood culture, infectious disease consult.
Infectious disease discontinued remdesivir, started Paxlovid
Assessment/plan:
COVID-19 infection -
fever, weakness, SpO2 < 94%. Patient with significant risk factors including atrial fibrillation, chronic weakness, insulin-dependent diabetes, hypertension.
Continue remdesivir.
Patient currently room air
Physical therapy,
05/11
Physical therapy consulted recommended home PT.
1/2 positive blood culture, infectious disease consult.
05/12
Remdesivir discontinued.
Started Paxlovid
05/13
Discharge home today
Hypertension
- continue amlodipine and losartan and unless found to be orthostatic
05/12
Blood pressure is low.
Start IV fluid
05/13
Pressure improved
DM II -patient on NovoLog 4 3 times daily AC as well as Lantus 14 at bedtime at home.
-Will hold is metformin for now
-Continue glipizide
-Continue Lantus 10 at bedtime for now
-Aspart 4 3 times daily AC
-Low-dose sliding scale
AFIB - permanent afib, rate controlled
-Currently sinus rhythm. Continue carvedilol with holding parameters
- continue apixaban
CAD
- continue the statin and zetia
CODE STATUS: Full code
DVT prophylaxis: apixaban
Diet: DM Diet
Disposition: Dc home today.
Total time spent on today's encounter was 65 minutes which included time spent in counseling the patient/family regarding diagnosis and treatment plan as listed above, goals of care, and symptom management. Case was discussed with nursing staff,
specialists, and care coordinators/case management. All labs and imaging personally reviewed by me. Remainder the time spent in detailed review of previous records, lab data, imaging, and other medical provider documentation.
Anticipated Discharge: Today
Subjective/Interval History
-
Date of Service: May 13, 2025
Patient seen and examined at bedside, denies any chest pain or shortness of breath, no abdominal pain, no nausea, no vomiting, no diarrhea or constipation.
Objective Data
-
Labs:
Laboratory Results
05/13/25
06:31
WBC 9.3
Hgb 11.4 L
Hct 32.8 L
Plt Count 173
Sodium 136
Potassium 3.3 L
Chloride 107
Carbon Dioxide 22
BUN 35 H
Creatinine 1.0
Glucose 181 H
Calcium 8.1 L
Total Bilirubin 0.7
AST 20
ALT 19
Alkaline Phosphatase 57
Vital Signs:
Vital Signs
Temp Pulse Resp BP Pulse Ox
98.5 F 72 20 140/74 94
05/13/25 07:10 05/13/25 08:23 05/13/25 07:10 05/13/25 08:23 05/13/25 09:25
I&O
05/12/25 05/13/25 05/14/25
06:59 06:59 06:59
Intake Total 360 / 360 1280 / 1280
Balance 360 / 360 1280 / 1280
Physical Exam
-
General: Well Developed, Well Nourished, No Apparent Distress and Comfortable
HEENT: Normocephalic, Atraumatic, Moist Mucous Membranes, No Ptosis, PERRLA and Nose Appears Normal
Respiratory: Rales, Rhonchi and Non Labored Respirations
Cardiac: S1/S2 and Irregular Rhythm
Breast: Deferred by me
GI: Soft, Nontender, Nondistended and Normal Bowel Sounds
Genito-urinary: No Costovertebral Tender
Musculoskeletal: No Clubbing, No Cyanosis and No Edema
Skin: Warm
Neuro: Awake, Alert, Oriented, AO x 3 and No Motor Deficits
Psych: Calm
[2025-05-13 11:00] VITALS: BP 125/63
[2025-05-13 11:35] LABS: Glucose - Point of Care 381 mg/dl (70-99)
[2025-05-13 11:35] LABS: Glucose - Point of Care 412 mg/dl (70-99)
[2025-05-13] MEDS: NOVOLOG FLEXPEN-LOW RESISTANCE 5 UNITS SC (12:20)
--- NOTE | 2025-05-13 12:48 | CM ---
Reviewed the chart notes and spoke with the patient's spouse via telephone. Explained [facility] willing to accept patient on Saturday after 10th dose of Paxlovid. Per [facility], Paxlovid is very expensive. It needs to be purchased in a 10 pill blister pack.
TT to attending regarding same. PT recommendation of SNF. Patient max assist. CM continues to be available to patient/family and is monitoring medical plan for needs at discharge.
Plan: Discharge to [facility] Saturday after 10th dose of Paxlovid. No precert required.
--- NOTE | 2025-05-13 14:44 | W.PN.ID1 ---
Date of Service
Date of Service: May 13, 2025
Today's Communication
Continue Paxlovid
Assessment / Plan
COVID-19
Generalized weakness and fatigue
Low-grade fevers
A-fib
CAD
HTN
DM type II
Nephrolithiasis
BPH
Recommendations:
Patient vaccinated against COVID; likelihood of severe disease low.
Continue paxlovid x 5 days.
Potential interactions with current meds possible:
- changed apixiban to 2.5 mg BID until 3 days after completing paxlovid; thereafter resume usual dose
- hold simvastatin until completed paxlovid
Follow white count and temperature curve.
����������������������������������������������������������
Chief Complaint
-: Other (COVID-19)
Subjective / Review of Systems
Patient seen and examined. Reports feeling weak, but overall feels markedly improved.
Review of Systems: No Fever and No Chills
Vital Signs / Physical Exam
Vital Signs
Vital Signs
Temp Pulse Resp BP Pulse Ox
98 F 79 20 125/63 94
05/13/25 11:00 05/13/25 11:00 05/13/25 11:00 05/13/25 11:00 05/13/25 11:00
Physical Exam
Constitutional: No Acute Distress, Comfortable and Non-toxic
Head: Normocephalic
Eyes: Sclera Anicteric
Pulmonary: Clear and Non Labored
Gastrointestinal: Non Distended
Extremities: Negative Edema or Cyanosis
Neurological: Awake and Alert
Psychological: Calm
Objective Data
Lab Data
Lab Results
05/13/25 06:31
05/13/25 06:31
Estimated Creat Clear 57 ml/min 05/13/25 06:31
Lactic Acid Cancelled 05/10/25 00:30
Total Bilirubin 0.7 mg/dl (0.2-1.3) 05/13/25 06:31
AST 20 U/L (17-59) 05/13/25 06:31
ALT 19 U/L (0-50) 05/13/25 06:31
Alkaline Phosphatase 57 U/L (38-126) 05/13/25 06:31
Most recent labs reviewed.
Micro Results:
05/09/25 20:38 Blood Culture - Preliminary
Blood/Venous No Growth in 72 hours- Final report to follow
05/09/25 20:56 Blood Culture - Preliminary
Blood/Venous Coagulase neg. staphylococcus
Additional testing on request
Gram Stain - Preliminary
05/09/25 20:38 Influenza Types A & B (TOREY) - Final
Nasal Swab Negative for Influenza A & B, NAAT
Negative results must be combined with clinical observations
and patient history.
Nucleic Acid Amplification test (NAAT)performed on the
[employer] platform.
Laboratory Tests
05/09/25
20:38
SARS-CoV-2 Antigen Positive A
Imaging:
CXR (2 view): No convincing focal infiltrates. No significant pleural effusion. No visualized pneumothorax. Please see full dictation for additional detail. Film personally viewed.
[2025-05-13 15:05] VITALS: BP 163/86
[2025-05-13 17:01] LABS: Glucose - Point of Care 173 mg/dl (70-99)
[2025-05-13] MEDS: VITAMIN D3 (cholecalciferol) 25 MCG PO (17:40)
[2025-05-13] MEDS: TESSALON PERLES 100 MG PO (17:41)
[2025-05-13 21:59] LABS: Glucose - Point of Care 179 mg/dl (70-99)
[2025-05-13 23:11] VITALS: BP 138/73
[2025-05-13] MEDS: ZETIA 10 MG PO (23:24)
[2025-05-13] MEDS: COZAAR 100 MG PO (23:24)
[2025-05-13] MEDS: ZOLOFT 50 MG PO (23:25)
[2025-05-13] MEDS: LANTUS 0.1 UNITS SC (23:25)
[2025-05-14 03:47] VITALS: BP 143/81
[2025-05-14 07:10] VITALS: BP 166/83
[2025-05-14 08:11] LABS: Glucose - Point of Care 167 mg/dl (70-99)
--- NOTE | 2025-05-14 09:14 | CM ---
Addendum entered by Devora Wells 05/14/25 09:20:
[facility] Wednesday 05/16
Report #: [phone] - ask front end engineer for nursing supervisor printing and stamping
Fax #: [phone]
Original Note:
Patient chart reviewed
Continues on Paxlovid
[facility] willing to accept patient on Saturday after 10th dose of Paxlovid. Per [facility], Paxlovid is very expensive.
It needs to be purchased in a 10 pill blister pack
PT rec SNF
Left message with Kaylen at [facility]
PLAN: Discharge to [facility] Saturday after 10th dose of Paxlovid. No precert required
[2025-05-14] MEDS: NOVOLOG FLEXPEN 4 UNITS SC ×3 (09:19→17:14)
[2025-05-14] MEDS: NOVOLOG FLEXPEN-LOW RESISTANCE 1 UNITS SC (09:20)
[2025-05-14] MEDS: GLUCOTROL XL (EXTENDED RELEASE) 2.5 MG PO (09:20)
[2025-05-14] MEDS: MUCINEX 600 MG PO ×2 (09:20→20:29)
[2025-05-14] MEDS: NORVASC 7.5 MG PO (09:20)
[2025-05-14] MEDS: VIBRAMYCIN 100 MG PO (09:20)
[2025-05-14] MEDS: VISBIOME 1 CAP PO (09:20)
[2025-05-14] MEDS: VITAMIN C 250 MG PO (09:20)
[2025-05-14] MEDS: COREG 25 MG PO ×2 (09:21→20:29)
[2025-05-14] MEDS: ELIQUIS 2.5 MG PO ×2 (09:21→20:29)
[2025-05-14] MEDS: VITAMIN B-12 1000 MCG PO (09:21)
[2025-05-14] MEDS: PAXLOVID 2X150 MG-100 MG DOSE PACK 1 DOSE PO ×2 (09:24→20:28)
--- NOTE | 2025-05-14 10:58 | W.PN.HOSP.TC ---
Today's Communication/Plan
-
Dc to rehab, on Saturday.
Assessment / Plan
Assessment / Plan
Impression:
85-year-old male with history of CAD status post CABG, permanent atrial fibrillation on anticoagulation, insulin-dependent diabetes, hypertension and BPH with recurrent urinary tract infections presenting with severe weakness. Family member with
recent upper respiratory symptoms and fever and patient now found to be COVID 19 positive. Chest x-ray is clear. He is satting 93 to 95% on room air. No increased work of breathing. U/A is negative for infection. CBC and electrolytes are
actually unremarkable. ECG shows no ischemia and sinus.
Patient started on remdesivir
Physical therapy consulted recommended home PT.
1/2 positive blood culture, infectious disease consult.
Infectious disease discontinued remdesivir, started Paxlovid
Assessment/plan:
COVID-19 infection -
fever, weakness, SpO2 < 94%. Patient with significant risk factors including atrial fibrillation, chronic weakness, insulin-dependent diabetes, hypertension.
Continue remdesivir.
Patient currently room air
Physical therapy,
05/11
Physical therapy consulted recommended home PT.
1/2 positive blood culture, infectious disease consult.
05/12
Remdesivir discontinued.
Started Paxlovid
05/13
Discharge home today
Hypertension
- continue amlodipine and losartan and unless found to be orthostatic
05/12
Blood pressure is low.
Start IV fluid
05/13
Pressure improved
DM II -patient on NovoLog 4 3 times daily AC as well as Lantus 14 at bedtime at home.
-Will hold is metformin for now
-Continue glipizide
-Continue Lantus 10 at bedtime for now
-Aspart 4 3 times daily AC
-Low-dose sliding scale
AFIB - permanent afib, rate controlled
-Currently sinus rhythm. Continue carvedilol with holding parameters
- continue apixaban
CAD
- continue the statin and zetia
CODE STATUS: Full code
DVT prophylaxis: apixaban
Diet: DM Diet
Disposition: Dc to rehab, on Saturday.
Total time spent on today's encounter was 65 minutes which included time spent in counseling the patient/family regarding diagnosis and treatment plan as listed above, goals of care, and symptom management. Case was discussed with nursing staff,
specialists, and care coordinators/case management. All labs and imaging personally reviewed by me. Remainder the time spent in detailed review of previous records, lab data, imaging, and other medical provider documentation.
Anticipated Discharge: 24 - 48 hours
Subjective/Interval History
-
Date of Service: May 14, 2025
Patient seen and examined at bedside, denies any chest pain , still coughing but overall improved, shortness of breath Improved, no abdominal pain, no nausea, no vomiting, no diarrhea or constipation.
Blood Pressure improved.
Objective Data
-
Vital Signs:
Vital Signs
Temp Pulse Resp BP Pulse Ox
98.1 F 65 16 166/83 96
05/14/25 07:10 05/14/25 07:10 05/14/25 07:10 05/14/25 09:21 05/14/25 10:10
I&O
05/13/25 05/14/25 05/15/25
06:59 06:59 06:59
Intake Total 1280 / 1280 900 / 900
Balance 1280 / 1280 900 / 900
Physical Exam
-
General: Well Developed, Well Nourished, No Apparent Distress and Comfortable
HEENT: Normocephalic, Atraumatic, Moist Mucous Membranes, No Ptosis, PERRLA and Nose Appears Normal
Respiratory: Rales, Rhonchi and Non Labored Respirations
Cardiac: S1/S2 and Irregular Rhythm
Breast: Deferred by me
GI: Soft, Nontender, Nondistended and Normal Bowel Sounds
Genito-urinary: No Costovertebral Tender
Musculoskeletal: No Clubbing, No Cyanosis and No Edema
Skin: Warm
Neuro: Awake, Alert, Oriented, AO x 3 and No Motor Deficits
Psych: Calm
[2025-05-14 11:00] VITALS: BP 146/74
[2025-05-14] MEDS: ProAIR HFA INHALER 2 PUFF INH (11:37)
[2025-05-14 12:02] LABS: Glucose - Point of Care 257 mg/dl (70-99)
[2025-05-14] MEDS: NOVOLOG FLEXPEN-LOW RESISTANCE 3 UNITS SC (12:27)
[2025-05-14] MEDS: KCL ELIXIR 40 MEQ PO (12:28)
[2025-05-14 15:00] VITALS: BP 145/69
[2025-05-14] MEDS: VITAMIN D3 (cholecalciferol) 25 MCG PO (17:11)
[2025-05-14] MEDS: NOVOLOG FLEXPEN-LOW RESISTANCE 4 UNITS SC (17:14)
[2025-05-14 17:15] LABS: Glucose - Point of Care 337 mg/dl (70-99)
[2025-05-14 19:15] VITALS: BP 173/95
[2025-05-14 21:10] LABS: Glucose - Point of Care 347 mg/dl (70-99)
[2025-05-14] MEDS: LANTUS 0.1 UNITS SC (21:49)
[2025-05-14] MEDS: NOVOLOG FLEXPEN 10 UNITS SC (21:50)
[2025-05-14] MEDS: TYLENOL 650 MG PO (21:53)
[2025-05-14] MEDS: ZOLOFT 50 MG PO (21:56)
[2025-05-14] MEDS: COZAAR 100 MG PO (21:56)
[2025-05-14] MEDS: ZETIA 10 MG PO (21:56)
[2025-05-14 23:41] LABS: Glucose - Point of Care 301 mg/dl (70-99)
[2025-05-14 23:51] VITALS: BP 124/74
[2025-05-15 07:45] LABS: Glucose - Point of Care 213 mg/dl (70-99)
[2025-05-15 07:54] VITALS: BP 160/77
[2025-05-15] MEDS: NOVOLOG FLEXPEN 4 UNITS SC ×3 (10:08→18:15)
[2025-05-15] MEDS: NOVOLOG FLEXPEN-LOW RESISTANCE 2 UNITS SC (10:10)
[2025-05-15] MEDS: VITAMIN B-12 1000 MCG PO (10:11)
[2025-05-15] MEDS: VIBRAMYCIN 100 MG PO (10:11)
[2025-05-15] MEDS: COREG 25 MG PO ×2 (10:11→20:26)
[2025-05-15] MEDS: MUCINEX 600 MG PO ×2 (10:11→20:26)
[2025-05-15] MEDS: NORVASC 7.5 MG PO (10:11)
[2025-05-15] MEDS: GLUCOTROL XL (EXTENDED RELEASE) 2.5 MG PO (10:11)
[2025-05-15] MEDS: ELIQUIS 2.5 MG PO ×2 (10:16→20:29)
[2025-05-15] MEDS: VISBIOME 1 CAP PO (10:16)
[2025-05-15] MEDS: PAXLOVID 2X150 MG-100 MG DOSE PACK 1 DOSE PO ×2 (10:24→20:26)
[2025-05-15] MEDS: VITAMIN C 250 MG PO (10:30)
--- NOTE | 2025-05-15 11:42 | W.PN.HOSP.TC ---
Today's Communication/Plan
-
Dc to rehab, on Saturday.
Assessment / Plan
Assessment / Plan
Impression:
85-year-old male with history of CAD status post CABG, permanent atrial fibrillation on anticoagulation, insulin-dependent diabetes, hypertension and BPH with recurrent urinary tract infections presenting with severe weakness. Family member with
recent upper respiratory symptoms and fever and patient now found to be COVID 19 positive. Chest x-ray is clear. He is satting 93 to 95% on room air. No increased work of breathing. U/A is negative for infection. CBC and electrolytes are
actually unremarkable. ECG shows no ischemia and sinus.
Patient started on remdesivir
Physical therapy consulted recommended home PT.
1/2 positive blood culture, infectious disease consult.
Infectious disease discontinued remdesivir, started Paxlovid
Will be discharged to rehab .
Assessment/plan:
COVID-19 infection -
fever, weakness, SpO2 < 94%. Patient with significant risk factors including atrial fibrillation, chronic weakness, insulin-dependent diabetes, hypertension.
Continue remdesivir.
Patient currently room air
Physical therapy,
05/11
Physical therapy consulted recommended home PT.
1/2 positive blood culture, infectious disease consult.
05/12
Remdesivir discontinued.
Started Paxlovid
05/13
Discharge to rehab Wednesday 05/16
Added Tessalon Perle and DuoNeb's treatment.
Hypertension
- continue amlodipine and losartan and unless found to be orthostatic
05/12
Blood pressure is low.
Start IV fluid
05/13
Pressure improved
DM II -patient on NovoLog 4 3 times daily AC as well as Lantus 14 at bedtime at home.
-Will hold is metformin for now
-Continue glipizide
-Continue Lantus 10 at bedtime for now
-Aspart 4 3 times daily AC
-Low-dose sliding scale
AFIB - permanent afib, rate controlled
-Currently sinus rhythm. Continue carvedilol with holding parameters
- continue apixaban
CAD
- continue the statin and zetia
CODE STATUS: Full code
DVT prophylaxis: apixaban
Diet: DM Diet
Disposition: Dc to rehab, on Saturday.
Total time spent on today's encounter was 65 minutes which included time spent in counseling the patient/family regarding diagnosis and treatment plan as listed above, goals of care, and symptom management. Case was discussed with nursing staff,
specialists, and care coordinators/case management. All labs and imaging personally reviewed by me. Remainder the time spent in detailed review of previous records, lab data, imaging, and other medical provider documentation.
Anticipated Discharge: Within 24 hours
Subjective/Interval History
-
Date of Service: May 15, 2025
Patient seen and examined at bedside, denies any chest pain , shortness of breath Improved, no abdominal pain, no nausea, no vomiting, no diarrhea or constipation.
Discussed with at bedside.
Objective Data
-
Vital Signs:
Vital Signs
Temp Pulse Resp BP Pulse Ox
98.8 F 75 18 160/77 95
05/15/25 07:54 05/15/25 07:54 05/15/25 07:54 05/15/25 07:54 05/15/25 07:54
I&O
05/14/25 05/15/25 05/16/25
06:59 06:59 06:59
Intake Total 900 / 900 1140 / 1140
Output Total 100 / 100
Balance 900 / 900 1040 / 1040
Physical Exam
-
General: Well Developed, Well Nourished, No Apparent Distress and Comfortable
HEENT: Normocephalic, Atraumatic, Moist Mucous Membranes, No Ptosis, PERRLA and Nose Appears Normal
Respiratory: Rales, Rhonchi and Non Labored Respirations
Cardiac: S1/S2 and Irregular Rhythm
Breast: Deferred by me
GI: Soft, Nontender, Nondistended and Normal Bowel Sounds
Genito-urinary: No Costovertebral Tender
Musculoskeletal: No Clubbing, No Cyanosis and No Edema
Skin: Warm
Neuro: Awake, Alert, Oriented, AO x 3 and No Motor Deficits
Psych: Calm
Data Reviewed
-
Diagnostic Radiology: Image personally visualized and interpreted and Report Reviewed by me
CT Scan: Image personally visualized and interpreted and Report Reviewed by me
Ultrasound: Image personally visualized and interpreted and Report Reviewed by me
MRI: Image personally visualized and interpreted and Report Reviewed by me
Medical Tests (Nuc Med, Echo etc): Image personally visualized and interpreted and Report Reviewed by me
Labs: Labs Reviewed by me
Old Records: Reviewed
[2025-05-15 11:46] LABS: Glucose - Point of Care 351 mg/dl (70-99)
--- NOTE | 2025-05-15 12:23 | CM ---
CM following re: discharge planning.
Reviewed pt's chart, spoke to pt's spouse Sirena over the phone to update on discharge plan progress.
Discharge order noted for discharge tomorrow 05/16/25. Both pt and his spouse are aware, expressed their agreement with discharge. IMM reviewed, placed on chart, pt has a copy.
Per CM note, [facility] accepted the pt for admission on Saturday05/16/25.
CM spoke to [facility] RN Stephany and she confirmed that pt is accepted for admission tomorrow.
to arrange ambulance transport for tomorrow [facility]/16/25. [facility] .
[facility] nursing report: [phone], ask for nursing postal supervisor.
Discharge instructions fax: [phone]
D/C plan: [facility] tomorrow 05/16/25.
[2025-05-15] MEDS: NOVOLOG FLEXPEN-LOW RESISTANCE 5 UNITS SC (13:00)
[2025-05-15] MEDS: DUONEB 3 ML INH (13:36)
[2025-05-15 15:58] VITALS: BP 121/62
[2025-05-15] MEDS: VITAMIN D3 (cholecalciferol) 25 MCG PO (16:02)
[2025-05-15] MEDS: TESSALON PERLES 100 MG PO ×2 (16:02→22:03)
[2025-05-15] MEDS: ROBITUSSIN DM 10 ML PO (16:04)
[2025-05-15] MEDS: NOVOLOG FLEXPEN-LOW RESISTANCE 3 UNITS SC (18:15)
[2025-05-15 18:16] LABS: Glucose - Point of Care 258 mg/dl (70-99)
[2025-05-15 21:51] LABS: Glucose - Point of Care 158 mg/dl (70-99)
[2025-05-15] MEDS: ZETIA 10 MG PO (22:03)
[2025-05-15] MEDS: LANTUS 0.1 UNITS SC (22:03)
[2025-05-15] MEDS: COZAAR 100 MG PO (22:04)
[2025-05-15] MEDS: ZOLOFT 50 MG PO (22:04)
[2025-05-15 23:31] VITALS: BP 140/74
[2025-05-16 06:16] LABS: Hematocrit 34.1 % (39.0-52.0); Hemoglobin 11.6 g/dL (13.0-18.0); Mean Corpuscular Hgb 29.1 pg (27.0-31.0); Mean Corpuscular Volume 85.5 fL (80.0-94.0); Mean Platelet Volume 9.7 fL (7.4-10.4); Platelet Count 238 10^3/uL (130-400); Red Blood Cell Count 3.99 10^6/uL (4.70-6.10); Red Cell Dist. Width 13.6 % (11.5-14.5); White Blood Cell Count 9.9 10^3/uL (4.8-10.8)
[2025-05-16 06:44] LABS: Blood Urea Nitrogen 24 mg/dl (9-20); Carbon Dioxide 25 mmol/L (22-30); Chloride 106 mmol/L (98-107); Estimated Creatinine Clearance 63 ml/min; Glucose 211 mg/dl (70-99); Potassium 3.9 mmol/L (3.5-5.1); Sodium 138 mmol/L (135-145); eGFR > 60.00
[2025-05-16 07:20] VITALS: BP 146/80
[2025-05-16 07:31] LABS: Glucose - Point of Care 218 mg/dl (70-99)
[2025-05-16] MEDS: NOVOLOG FLEXPEN-LOW RESISTANCE 2 UNITS SC ×2 (08:05→12:00)
[2025-05-16] MEDS: NOVOLOG FLEXPEN 4 UNITS SC ×2 (08:05→12:00)
[2025-05-16] MEDS: VISBIOME 1 CAP PO (08:06)
[2025-05-16] MEDS: VITAMIN B-12 1000 MCG PO (08:06)
[2025-05-16] MEDS: NORVASC 7.5 MG PO (08:06)
[2025-05-16] MEDS: TESSALON PERLES 100 MG PO (08:06)
[2025-05-16] MEDS: VITAMIN C 250 MG PO (08:06)
[2025-05-16] MEDS: ELIQUIS 2.5 MG PO (08:07)
[2025-05-16] MEDS: VIBRAMYCIN 100 MG PO (08:07)
[2025-05-16] MEDS: PAXLOVID 2X150 MG-100 MG DOSE PACK 1 DOSE PO (08:07)
[2025-05-16] MEDS: MUCINEX 600 MG PO (08:07)
[2025-05-16] MEDS: COREG 25 MG PO (08:07)
[2025-05-16] MEDS: GLUCOTROL XL (EXTENDED RELEASE) 2.5 MG PO (08:07)
[2025-05-16] MEDS: IMODIUM 2 MG PO (09:29)
--- NOTE | 2025-05-16 09:32 | CM ---
CM following re: discharge planning.
Reviewed pt's chart, spoke to pt's spouse Sirena over the phone to update on discharge plan progress.
Discharge order noted. Both pt and his spouse are aware, expressed their agreement with discharge. [facility] reviewed yesterday
CM spoke to [facility] RN Stephany and she confirmed that pt is accepted for admission today.
arranged ambulance transportBLS with warp picker time 12:00 p.m. [facility] completed and left with .
[facility] nursing report: [phone], ask for nursing broadcast supervisor.
Discharge instructions fax: [phone]
D/C plan: [facility].
--- NOTE | 2025-05-16 10:19 | W.PN.HOSP.TC ---
Today's Communication/Plan
-
Dc to rehab,started on Imodium.
Assessment / Plan
Assessment / Plan
Impression:
85-year-old male with history of CAD status post CABG, permanent atrial fibrillation on anticoagulation, insulin-dependent diabetes, hypertension and BPH with recurrent urinary tract infections presenting with severe weakness. Family member with
recent upper respiratory symptoms and fever and patient now found to be COVID 19 positive. Chest x-ray is clear. He is satting 93 to 95% on room air. No increased work of breathing. U/A is negative for infection. CBC and electrolytes are
actually unremarkable. ECG shows no ischemia and sinus.
Patient started on remdesivir
Physical therapy consulted recommended rehab
1/2 positive blood culture, infectious disease consulted.
Infectious disease discontinued remdesivir, started Paxlovid
Will be discharged to rehab today.
Was having diarrhea, started on Imodium.
Assessment/plan:
COVID-19 infection -
fever, weakness, SpO2 < 94%. Patient with significant risk factors including atrial fibrillation, chronic weakness, insulin-dependent diabetes, hypertension.
Continue remdesivir.
Patient currently room air
Physical therapy,
05/11
Physical therapy consulted recommended home PT.
1/2 positive blood culture, infectious disease consult.
05/12
Remdesivir discontinued.
Started Paxlovid
05/13
Discharge to rehab Wednesday 05/16
Added Tessalon Perle and DuoNeb's treatment.
Hypertension
- continue amlodipine and losartan and unless found to be orthostatic
05/12
Blood pressure is low.
Start IV fluid
05/13
Pressure improved
DM II -patient on NovoLog 4 3 times daily AC as well as Lantus 14 at bedtime at home.
-Will hold is metformin for now
-Continue glipizide
-Continue Lantus 10 at bedtime for now
-Aspart 4 3 times daily AC
-Low-dose sliding scale
AFIB - permanent afib, rate controlled
-Currently sinus rhythm. Continue carvedilol with holding parameters
- continue apixaban
CAD
- continue the statin and zetia
CODE STATUS: Full code
DVT prophylaxis: apixaban
Diet: DM Diet
Disposition: Dc to rehab,started on Imodium.
Total time spent on today's encounter was 65 minutes which included time spent in counseling the patient/family regarding diagnosis and treatment plan as listed above, goals of care, and symptom management. Case was discussed with nursing staff,
specialists, and care coordinators/case management. All labs and imaging personally reviewed by me. Remainder the time spent in detailed review of previous records, lab data, imaging, and other medical provider documentation.
Anticipated Discharge: Today
Subjective/Interval History
-
Date of Service: May 16, 2025
Patient seen and examined at bedside, at bedside, patient denies any chest pain or shortness of breath, still coughing, patient was having diarrhea, added Imodium.
Objective Data
-
Labs:
Laboratory Results
05/16/25
05:24
WBC 9.9
Hgb 11.6 L
Hct 34.1 L
Plt Count 238 D
Sodium 138
Potassium 3.9
Chloride 106
Carbon Dioxide 25
BUN 24 H
Creatinine 0.9
Glucose 211 H
Calcium 9.0
Vital Signs:
Vital Signs
Temp Pulse Resp BP Pulse Ox
98.4 F 76 18 146/80 94
05/16/25 07:20 05/16/25 07:20 05/16/25 07:20 05/16/25 07:20 05/16/25 07:20
I&O
05/15/25 05/16/25 05/17/25
06:59 06:59 06:59
Intake Total 1140 / 1140 1080 / 1080
Output Total 100 / 100
Balance 1040 / 1040 1080 / 1080
Physical Exam
-
General: Well Developed, Well Nourished, No Apparent Distress and Comfortable
HEENT: Normocephalic, Atraumatic, Moist Mucous Membranes, No Ptosis, PERRLA and Nose Appears Normal
Respiratory: Rales, Rhonchi and Non Labored Respirations
Cardiac: S1/S2 and Irregular Rhythm
Breast: Deferred by me
GI: Soft, Nontender, Nondistended and Normal Bowel Sounds
Genito-urinary: No Costovertebral Tender
Musculoskeletal: No Clubbing, No Cyanosis and No Edema
Skin: Warm
Neuro: Awake, Alert, Oriented, AO x 3 and No Motor Deficits
Psych: Calm
Data Reviewed
-
Diagnostic Radiology: Image personally visualized and interpreted and Report Reviewed by me
CT Scan: Image personally visualized and interpreted and Report Reviewed by me
Ultrasound: Image personally visualized and interpreted and Report Reviewed by me
MRI: Image personally visualized and interpreted and Report Reviewed by me
Medical Tests (Nuc Med, Echo etc): Image personally visualized and interpreted and Report Reviewed by me
Labs: Labs Reviewed by me
Old Records: Reviewed
--- NOTE | 2025-05-16 10:21 | W.DCSUMMARY ---
Discharge Summary
Discharge Data
Date of Admission: 05/09/25
Date of Discharge: 05/16/25
-
Pending Results: No
Hospital Course
Hospital course
85-year-old male with history of CAD status post CABG, permanent atrial fibrillation on anticoagulation, insulin-dependent diabetes, hypertension and BPH with recurrent urinary tract infections presenting with severe weakness. Family member with
recent upper respiratory symptoms and fever and patient now found to be COVID 19 positive. Chest x-ray is clear. He is satting 93 to 95% on room air. No increased work of breathing. U/A is negative for infection. CBC and electrolytes are
actually unremarkable. ECG shows no ischemia and sinus.
Patient started on remdesivir
Physical therapy consulted recommended rehab
1/2 positive blood culture, infectious disease consulted.
Infectious disease discontinued remdesivir, started Paxlovid
Will be discharged to rehab today.
Was having diarrhea, started on Imodium.
During hospitalization patient was treated from the following
COVID-19 infection -
fever, weakness, SpO2 < 94%. Patient with significant risk factors including atrial fibrillation, chronic weakness, insulin-dependent diabetes, hypertension.
Continue remdesivir.
Patient currently room air
Physical therapy,
05/11
Physical therapy consulted recommended home PT.
1/2 positive blood culture, infectious disease consult.
05/12
Remdesivir discontinued.
Started Paxlovid
05/13
Discharge to rehab Wednesday 05/16
Added Tessalon Perle and DuoNeb's treatment.
Hypertension
- continue amlodipine and losartan and unless found to be orthostatic
05/12
Blood pressure is low.
Start IV fluid
05/13
Pressure improved
DM II -patient on NovoLog 4 3 times daily AC as well as Lantus 14 at bedtime at home.
-Will hold is metformin for now
-Continue glipizide
-Continue Lantus 10 at bedtime for now
-Aspart 4 3 times daily AC
-Low-dose sliding scale
AFIB - permanent afib, rate controlled
-Currently sinus rhythm. Continue carvedilol with holding parameters
- continue apixaban
CAD
- continue the statin and zetia
Diarrhea illness.
Continue probiotic.
Started on Imodium.
CODE STATUS: Full code
DVT prophylaxis: apixaban
Diet: DM Diet
Disposition: Dc to rehab,started on Imodium.
Total time spent on today's encounter was 40 minutes which included time spent in counseling the patient/family regarding diagnosis and treatment plan as listed above, goals of care, and symptom management. Case was discussed with nursing staff,
specialists, and care coordinators/case management. All labs and imaging personally reviewed by me. Remainder the time spent in detailed review of previous records, lab data, imaging, and other medical provider documentation.
Anticipated Discharge: Today
Discharge Plan
-
Patient Disposition: Retirement/SNF
Discharge Diagnosis/Procedures: COVID-19 infection
Hypertension
Diabetes
Atrial fibrillation.
Diet: Diabetic, Carb Controlled
Activity: With assistance and As tolerated
Other Services: PT and OT
Referrals:
UNKNOWN - PT DOES,NOT KNOW [Family Provider]
Prescriptions:
New
guaifenesin 600 mg Tablet Extended Release 12hr
600 mg PO Q12 10 Days Qty: 20 0RF
dextromethorphan-guaifenesin 10-100 mg/5 mL Syrup
10 ml PO Q4HPRN PRN (Reason: cough) 10 Days Qty: 0 0RF
benzonatate 100 mg Capsule
100 mg PO TID Qty: 20 0RF
albuterol sulfate 90 mcg/actuation Hfa Aerosol Inhaler
2 puff inhalation R Q4HPRN PRN (Reason: shortness of breath or wheeze) Qty: 0 0RF
acetaminophen 325 mg Tablet
650 mg PO Q4HPRN PRN (Reason: fever >/= 100.4F, HERNANDEZ,mild pain) Qty: 0 0RF
ipratropium-albuterol 0.5 mg-3 mg(2.5 mg base)/3 mL Solution For Nebulization
3 ml inhalation R Q4HPRN PRN (Reason: Shortness of breath/wheezing) Qty: 0 0RF
ipratropium-albuterol 0.5 mg-3 mg(2.5 mg base)/3 mL Solution For Nebulization
3 ml inhalation TID Qty: 0 0RF
loperamide 2 mg Capsule
2 mg PO Q6HPRN PRN (Reason: diarrhea) Qty: 0 0RF
Continued
glipizide 2.5 mg Tablet Extended Release 24hr
2.5 mg PO QDAY
metformin 500 mg Tablet
500 mg PO BID
carvedilol 25 mg Tablet
25 mg PO BID
doxycycline hyclate 100 mg Capsule
100 mg PO DAILY
insulin glargine [Lantus U-100 Insulin] 100 unit/mL Solution
14 unit SC HS
sertraline [Zoloft] 50 mg Tablet
50 mg PO HS
ezetimibe [Zetia] 10 mg Tablet
10 mg PO HS
insulin asp prt-insulin aspart [Novolog Mix 70-30 U-100 Insuln] 100 unit/mL (70-30) Solution
8 unit SC QDAY
cyanocobalamin (vitamin B-12) 500 mcg Tablet
1,000 mcg PO DAILY
cholecalciferol (vitamin D3) [Vitamin D3] 25 mcg (1,000 unit) Capsule
25 mcg PO QACDINNER
coenzyme X22-twaiyld E 100-100 mg-unit Capsule
1 cap PO HS
Men's Daily 0.4-600 mg-mcg Capsule
1 cap PO DAILY
PreserVision AREDS-2 250-90-40-1 mg Capsule
1 tab PO AMHS
turmeric 400 mg Capsule
400 mg PO QHS
ascorbic acid (vitamin C) [Vitamin C] 250 mg Tablet
250 mg PO DAILY
Theracran 650 mg Capsule
1,300 mg PO DAILY
losartan 50 mg Tablet
100 mg PO HS 30 Days Qty: 60 0RF
Lactobac/Bifidobac [Visbiome]
1 cap PO DAILY Qty: 1 0RF
amlodipine 5 mg tablet
7.5 mg PO DAILY
rosuvastatin 10 mg tablet
20 mg PO QPM
Changed
Eliquis 5 mg Tablet
2.5 mg PO DIRECTED Qty: 30 0RF
Rx Instructions:
Take 2.5 twice daily for 3 days then back to 5 mg twice daily after.
Discharge Orders:
Discharge Patient (As Directed); Ordered 05/16/25
Ordered By: Jesusita Doyle
Discharge Date and Time
Print Language: WOLOF
[2025-05-16 11:35] VITALS: BP 139/72
[2025-05-16 11:37] LABS: Glucose - Point of Care 240 mg/dl (70-99)
== END 2025-05-16 13:19 | DRG 178 ==
LOC: 2 NORTH 22:31
PROVIDERS: ADMITTING PHYSICIAN Internal Medicine; ATTENDING PHYSICIAN General Practice; EMERGENCY PHYSICIAN Emergency Medicine; OTHER PHYSICIAN Internal Medicine Infectious Disease
PROC: XW033E5 Introduction of Remdesivir Anti-infective into Peripheral Vein, Percutaneous Approach, New Technology Group 5 (ICD-10-PCS; 2025-05-10)
DX: U07.1 COVID-19 (principal); I48.21 Permanent atrial fibrillation; E11.9 Type 2 diabetes mellitus without complications; I10 Essential (primary) hypertension; I25.10 Atherosclerotic heart disease of native coronary artery without angina pectoris; E83.42 Hypomagnesemia; R19.7 Diarrhea, unspecified; Z79.4 Long term (current) use of insulin; Z79.01 Long term (current) use of anticoagulants; Z79.899 Other long term (current) drug therapy
CPT/HCPCS: 70450; 71046; 80048; 80053; 80076; 81003; 81015; 82962; 83605; 83735; 85025; 85027; 87040; 87150; 87205; 87502; 87811; 93005; 94640; 97116; 97163; 97167; 97530; 97535; 99285; J0248

== ENCOUNTER → 2025-05-19 11:44 | Outpatient (REF) | payer OTHER, MEDICARE, BC, SELFPAY ==
[2025-05-19 12:34] LABS: Blood Urea Nitrogen 37 mg/dl (9-20); Calcium 9.2 mg/dl (8.4-10.2); Carbon Dioxide 21 mmol/L (22-30); Chloride 106 mmol/L (98-107); Glucose 258 mg/dl (70-99); Potassium 4.3 mmol/L (3.5-5.1); Sodium 135 mmol/L (135-145); eGFR > 60.00
[2025-05-19 12:41] LABS: % Basophils 0.3 % (0-2); % Eosinophils 0.7 % (0-6); % Immature Granulocytes 1.2 % (0-0.5); % Lymphocytes 12.9 % (20.5-51.1); % Monocytes 11.6 % (1.7-9.3); % Neutrophils 73.3 % (42.2-75.2); Absolute Eosinophils 0.1 10^3/uL (0-0.7); Absolute Immature Granulocytes 0.1 10^3/uL (0-0.05); Absolute Lymphocytes 1.3 10^3/uL (1.2-3.4); Absolute Monocytes 1.2 10^3/uL (0.1-0.6); Absolute Neutrophils 7.6 10^3/uL (1.4-6.5); Hematocrit 33.5 % (39.0-52.0); Hemoglobin 11.6 g/dL (13.0-18.0); Mean Corp Hgb Conc. 34.6 g/dL (33.0-37.0); Mean Corpuscular Hgb 29.3 pg (27.0-31.0); Mean Corpuscular Volume 84.6 fL (80.0-94.0); Mean Platelet Volume 10.3 fL (7.4-10.4); Nucleated Red Blood Cells % 0 % (-); Platelet Count 280 10^3/uL (130-400); Red Blood Cell Count 3.96 10^6/uL (4.70-6.10); Red Cell Dist. Width 13.4 % (11.5-14.5); White Blood Cell Count 10.4 10^3/uL (4.8-10.8)
== END ==
LOC: OLABP 11:44
PROVIDERS: ATTENDING PHYSICIAN Family Medicine
DX: U07.1 COVID-19 (principal); M62.59 Muscle wasting and atrophy, not elsewhere classified, multiple sites; I10 Essential (primary) hypertension; R54 Age-related physical debility; E83.42 Hypomagnesemia; I48.21 Permanent atrial fibrillation; E11.9 Type 2 diabetes mellitus without complications; I25.10 Atherosclerotic heart disease of native coronary artery without angina pectoris
CPT/HCPCS: 36415; 80048; 85025

== ENCOUNTER → 2025-05-21 10:58 | Outpatient (REF) | payer OTHER, MEDICARE, BC, SELFPAY ==
[2025-05-21 11:40] LABS: % Basophils 0.2 % (0-2); % Eosinophils 1.5 % (0-6); % Immature Granulocytes 0.9 % (0-0.5); % Lymphocytes 11.1 % (20.5-51.1); % Monocytes 7.1 % (1.7-9.3); % Neutrophils 79.2 % (42.2-75.2); Absolute Eosinophils 0.2 10^3/uL (0-0.7); Absolute Immature Granulocytes 0.1 10^3/uL (0-0.05); Absolute Lymphocytes 1.3 10^3/uL (1.2-3.4); Absolute Monocytes 0.9 10^3/uL (0.1-0.6); Absolute Neutrophils 9.5 10^3/uL (1.4-6.5); Hematocrit 34.4 % (39.0-52.0); Hemoglobin 11.5 g/dL (13.0-18.0); Mean Corp Hgb Conc. 33.4 g/dL (33.0-37.0); Mean Corpuscular Hgb 28.8 pg (27.0-31.0); Mean Platelet Volume 10.4 fL (7.4-10.4); Nucleated Red Blood Cells % 0 % (-); Platelet Count 317 10^3/uL (130-400); Red Cell Dist. Width 13.4 % (11.5-14.5); White Blood Cell Count 12.1 10^3/uL (4.8-10.8)
== END ==
LOC: OLABP 10:58
PROVIDERS: ATTENDING PHYSICIAN Family Medicine
DX: I10 Essential (primary) hypertension (principal); M62.59 Muscle wasting and atrophy, not elsewhere classified, multiple sites; R54 Age-related physical debility; E83.42 Hypomagnesemia; I48.21 Permanent atrial fibrillation; E11.9 Type 2 diabetes mellitus without complications; I25.10 Atherosclerotic heart disease of native coronary artery without angina pectoris
CPT/HCPCS: 36415; 85025

== ENCOUNTER → 2025-05-24 14:37 | Outpatient (REF) | payer OTHER, MEDICARE, BC, SELFPAY ==
[2025-05-24 14:50] LABS: % Basophils 0.2 % (0-2); % Immature Granulocytes 0.7 % (0-0.5); % Lymphocytes 9.7 % (20.5-51.1); % Monocytes 7.2 % (1.7-9.3); % Neutrophils 81.2 % (42.2-75.2); Absolute Eosinophils 0.1 10^3/uL (0-0.7); Absolute Immature Granulocytes 0.1 10^3/uL (0-0.05); Absolute Lymphocytes 1.2 10^3/uL (1.2-3.4); Absolute Monocytes 0.9 10^3/uL (0.1-0.6); Absolute Neutrophils 9.8 10^3/uL (1.4-6.5); Hematocrit 33.9 % (39.0-52.0); Hemoglobin 11.7 g/dL (13.0-18.0); Mean Corp Hgb Conc. 34.5 g/dL (33.0-37.0); Mean Corpuscular Volume 84.1 fL (80.0-94.0); Mean Platelet Volume 9.8 fL (7.4-10.4); Nucleated Red Blood Cells % 0 % (-); Platelet Count 313 10^3/uL (130-400); Red Blood Cell Count 4.03 10^6/uL (4.70-6.10); Red Cell Dist. Width 13.3 % (11.5-14.5); White Blood Cell Count 12.1 10^3/uL (4.8-10.8)
[2025-05-24 16:31] LABS: Blood Urea Nitrogen 32 mg/dl (9-20); Calcium 9.2 mg/dl (8.4-10.2); Carbon Dioxide 19 mmol/L (22-30); Chloride 106 mmol/L (98-107); Glucose 257 mg/dl (70-99); Potassium 4.8 mmol/L (3.5-5.1); Sodium 136 mmol/L (135-145); eGFR > 60.00
[2025-05-25 08:20] LABS: Glycohemoglobin (HgbA1c) 10.4 % (4.0-5.6)
== END ==
LOC: OLABP 14:37
PROVIDERS: ATTENDING PHYSICIAN Family Medicine
DX: I10 Essential (primary) hypertension (principal); M62.59 Muscle wasting and atrophy, not elsewhere classified, multiple sites; U07.1 COVID-19; R54 Age-related physical debility; E83.42 Hypomagnesemia; I48.21 Permanent atrial fibrillation; E11.9 Type 2 diabetes mellitus without complications; I25.10 Atherosclerotic heart disease of native coronary artery without angina pectoris
CPT/HCPCS: 36415; 80048; 83036; 85025

== ENCOUNTER → 2025-05-25 10:18 | Outpatient (REF) | payer OTHER, MEDICARE, BC, SELFPAY ==
[2025-05-25 12:07] LABS: Urine Albumin 1+ (Neg - Trace); Urine Bilirubin Negative (Negative); Urine Character Clear (Clear); Urine Color Yellow; Urine Glucose Negative (Negative); Urine Ketone Negative (Negative); Urine Leukocyte 2+ (Negative); Urine Nitrite Negative (Negative); Urine Occult Blood 1+ (Negative); Urine Urobilinogen Negative (Neg - 1+)
[2025-05-25 12:38] LABS: Urine Bacteria Moderate (Negative); Urine Red Blood Cell 0-2 /HPF (0-2); Urine White Cell 30-40 /HPF (0-5)
== END ==
LOC: OLABP 10:18
PROVIDERS: ATTENDING PHYSICIAN Family Medicine
DX: M62.59 Muscle wasting and atrophy, not elsewhere classified, multiple sites (principal); U07.1 COVID-19; R54 Age-related physical debility; E83.42 Hypomagnesemia; I48.21 Permanent atrial fibrillation; E11.9 Type 2 diabetes mellitus without complications; I25.10 Atherosclerotic heart disease of native coronary artery without angina pectoris; R82.90 Unspecified abnormal findings in urine
CPT/HCPCS: 81003; 81015; 87086

== ENCOUNTER → 2025-05-26 14:24 | Outpatient (REF) | payer OTHER, MEDICARE, BC, SELFPAY ==
[2025-05-26 14:45] LABS: Urine Albumin 2+ (Neg - Trace); Urine Bilirubin Negative (Negative); Urine Character Cloudy (Clear); Urine Color Yellow; Urine Glucose 1+ (Negative); Urine Ketone Negative (Negative); Urine Leukocyte 3+ (Negative); Urine Nitrite Negative (Negative); Urine Occult Blood 3+ (Negative); Urine Urobilinogen Negative (Neg - 1+)
[2025-05-26 14:56] LABS: Urine Squamous Cell 0-2 /LPF (Few); Urine Urothelial Cell 0-2 /LPF (FEW)
[2025-05-26 14:58] LABS: Urine Bacteria Moderate (Negative); Urine White Cell 90-100 /HPF (0-5)
== END ==
LOC: OLABP 14:24
PROVIDERS: ATTENDING PHYSICIAN Family Medicine
DX: I10 Essential (primary) hypertension (principal); M62.59 Muscle wasting and atrophy, not elsewhere classified, multiple sites; U07.1 COVID-19; R54 Age-related physical debility; E83.42 Hypomagnesemia; I48.21 Permanent atrial fibrillation; E11.9 Type 2 diabetes mellitus without complications; I25.10 Atherosclerotic heart disease of native coronary artery without angina pectoris; R53.1 Weakness
CPT/HCPCS: 81003; 81015; 87077; 87086; 87186

== ENCOUNTER → 2025-06-01 11:30 | Outpatient (REF) | payer OTHER, MEDICARE, BC, SELFPAY ==
[2025-06-01 11:57] LABS: Hematocrit 31.0 % (39.0-52.0); Hemoglobin 10.5 g/dL (13.0-18.0); Mean Corp Hgb Conc. 33.9 g/dL (33.0-37.0); Mean Corpuscular Volume 85.9 fL (80.0-94.0); Nucleated Red Blood Cells % 0 % (-); Platelet Count 374 10^3/uL (130-400); Red Cell Dist. Width 13.3 % (11.5-14.5)
[2025-06-01 12:03] LABS: ALT (SGPT) 74 U/L (0-50); AST (SGOT) 57 U/L (17-59); Albumin 3.3 g/dl (3.5-5.0); Alkaline Phosphatase 93 U/L (38-126); Blood Urea Nitrogen 30 mg/dl (9-20); Calcium 8.6 mg/dl (8.4-10.2); Carbon Dioxide 23 mmol/L (22-30); Chloride 106 mmol/L (98-107); Glucose 104 mg/dl (70-99); HDL Cholesterol 21 mg/dl; LDL Cholesterol, Calculated 40 mg/dl; Potassium 4.4 mmol/L (3.5-5.1); Sodium 138 mmol/L (135-145); Total Protein 6.0 g/dl (6.3-8.2); Very Low Density Lipoprotein 28 mg/dl (0-30); eGFR > 60.00
== END ==
LOC: OLABP 11:30
PROVIDERS: ATTENDING PHYSICIAN Family Medicine
DX: M62.59 Muscle wasting and atrophy, not elsewhere classified, multiple sites (principal); U07.1 COVID-19; I10 Essential (primary) hypertension; R54 Age-related physical debility; E83.42 Hypomagnesemia; I48.21 Permanent atrial fibrillation; E11.9 Type 2 diabetes mellitus without complications; I25.10 Atherosclerotic heart disease of native coronary artery without angina pectoris
CPT/HCPCS: 36415; 80053; 80061; 85025

== ENCOUNTER → 2025-06-03 20:11 | Outpatient (REF) | payer OTHER, MEDICARE, BC, SELFPAY ==
[2025-06-03 20:45] LABS: Urine Character Clear (Clear)
[2025-06-03 20:56] LABS: Urine Red Blood Cell 26-30 /HPF (0-2); Urine White Cell 30-40 /HPF (0-5)
== END ==
LOC: OLABP 20:11
PROVIDERS: ATTENDING PHYSICIAN Family Medicine
DX: M62.59 Muscle wasting and atrophy, not elsewhere classified, multiple sites (principal); U07.1 COVID-19; I10 Essential (primary) hypertension; R54 Age-related physical debility; E83.42 Hypomagnesemia; E11.9 Type 2 diabetes mellitus without complications
CPT/HCPCS: 81003; 81015; 87086

== ENCOUNTER → 2025-06-05 20:42 | Outpatient (REF) | payer OTHER, MEDICARE, BC, SELFPAY ==
[2025-06-05 21:50] LABS: Urine Character Cloudy (Clear)
[2025-06-05 21:52] LABS: Urine White Cell >100 /HPF (0-5)
== END ==
LOC: OLABP 20:42
PROVIDERS: ATTENDING PHYSICIAN Family Medicine
DX: M62.59 Muscle wasting and atrophy, not elsewhere classified, multiple sites (principal); U07.1 COVID-19; I10 Essential (primary) hypertension; R54 Age-related physical debility; E83.42 Hypomagnesemia; I48.21 Permanent atrial fibrillation; E11.9 Type 2 diabetes mellitus without complications; I25.10 Atherosclerotic heart disease of native coronary artery without angina pectoris
CPT/HCPCS: 81003; 81015; 87077; 87086; 87186

== ENCOUNTER → 2025-06-07 10:44 | Outpatient (REF) | payer OTHER, MEDICARE, BC, SELFPAY ==
[2025-06-07 11:28] LABS: Hematocrit 27.9 % (39.0-52.0); Hemoglobin 9.2 g/dL (13.0-18.0); Mean Corp Hgb Conc. 33.0 g/dL (33.0-37.0); Mean Corpuscular Volume 86.6 fL (80.0-94.0); Nucleated Red Blood Cells % 0 % (-); Platelet Count 259 10^3/uL (130-400); Red Cell Dist. Width 14.2 % (11.5-14.5)
[2025-06-07 12:02] LABS: ALT (SGPT) 27 U/L (0-50); AST (SGOT) 22 U/L (17-59); Albumin 3.1 g/dl (3.5-5.0); Alkaline Phosphatase 89 U/L (38-126); Blood Urea Nitrogen 42 mg/dl (9-20); Calcium 8.2 mg/dl (8.4-10.2); Carbon Dioxide 20 mmol/L (22-30); Chloride 102 mmol/L (98-107); Glucose 249 mg/dl (70-99); Potassium 4.7 mmol/L (3.5-5.1); Sodium 132 mmol/L (135-145); Total Protein 5.7 g/dl (6.3-8.2); eGFR 41.44
== END ==
LOC: OLABP 10:44
PROVIDERS: ATTENDING PHYSICIAN Family Medicine
DX: M62.59 Muscle wasting and atrophy, not elsewhere classified, multiple sites (principal); U07.1 COVID-19; I10 Essential (primary) hypertension; R54 Age-related physical debility; E83.42 Hypomagnesemia; I48.21 Permanent atrial fibrillation; E11.9 Type 2 diabetes mellitus without complications; I25.10 Atherosclerotic heart disease of native coronary artery without angina pectoris
CPT/HCPCS: 85025; 36415; 80053

== ENCOUNTER 2025-06-07 19:16 | Inpatient (IN) | payer MEDICARE, BC, SELFPAY ==
[2025-06-07] VITALS (12 sets, daily range): BP systolic 100–142; BP diastolic 51–76; BMI 31.9; BMI 29.6
[2025-06-07 15:48] LABS: Urine Character Cloudy (Clear)
--- NOTE | 2025-06-07 15:48 | ED.GENMED ---
History of Present Illness
General
Chief Complaint: Weakness
Source: patient
Exam Limitations: none
Time Seen by Provider: 06/07/25 15:33
History of Present Illness
History of Present Illness:
85yoM with a history of coronary artery disease s/p CABG, atrial fibrillation, hypertension, hyperlipidemia, insulin dependent diabetes, recurrent UTIs presenting via EMS for evaluation of weakness. Patient was recently hospitalized from
05/09/25-05/16/25 for COVID. He was discharged to [facility] after his hospitalization. Patient was doing very well in rehab facility and was about to be discharged. states he was ambulating unassisted 2 days ago but by that same afternoon 'he
was a different person.' He started to become weak and was hallucinating. He was unable to transfer himself without assistance. Patient had lab work done at the nursing facility this morning. Lab work showed a white count of 20 and a creatinine
of 1.6. UA was positive for leukocytes and patient was sent to the ED for evaluation. Patient is febrile to 103.1 on arrival. Temperature was 99.9 yesterday at [facility]. Of note, patient finished antibiotics less than a week ago for a UTI.
Past History
Past History
ED Past Medical History: CAD, HTN, Hypercholesterolemia, IDDM and Other (Kidney stones, BPH)
ED Past Surgical History: Appendectomy, Cardiac (CABG) and Other (Lower leg varicose vein stripping)
Social History
Tobacco: Non-smoker
Alcohol: Occasional
Drug: None
Personal:
Living: with family
Employment: Retired
Family History
Family History: Other (Noncontributory)
Phy Exam
General Physical Exam
General Presentation: mild distress
General Skin: warm and dry
General Habitus: normal and elderly
General Mental: alert
Cardiovascular Exam
Cardiovascular Exam: irregularly irregular and tachycardia
Pulmonary Exam
Pulmonary Exam: decreased breath sounds
Respiratory Effort: tachypnea
Gastrointestinal Exam
Gastrointestinal Exam: soft, non distended and other (Mild generalized tenderness)
Neurological Exam
Neurological Exam: alert
Skin Exam
Skin Exam: normal color and warm/dry
Psychiatric Exam
Psychiatric Exam: normal mood/affect
Sepsis
Sepsis Screening
Sepsis Assessment: Sepsis
Sepsis Screen
Sepsis Screen: Sepsis
Date: 06/07/25
Time: 22:55
Course
Orders/Labs/Results
Orders:
Orders
06/07/25 Breakfast
1800 calorie (15 carb) Diabetic
At Your Request: Full Participation
06/07/25 15:38
Complete Blood Count/With Diff Urgent
Comprehensive Metabolic Panel Urgent
Lactic Acid Urgent
Urinalysis Urgent
Date Specimen was Collected: 06/07/25
Time Specimen was Collected: 15:33
Urine Microscopic Urgent
Date Specimen was Collected: 06/07/25
Time Specimen was Collected: 15:33
06/07/25 15:41
Electrocardiogram (*1) Urgent
Reason for Study: Tachycardia
06/07/25 15:42
EKG- Treatment ONCE
06/07/25 15:46
0.9% Sodium Chloride 1000 ml [Nss] 1,000 ml IV BOLUS
Acetaminophen [Tylenol] 1,000 mg PO NOW STA
CR Chest - 2 Views Urgent
Comment:
Reason For Exam: fever
06/07/25 16:03
CT Abd/pel Without Iv Or Oral Urgent
Comment:
Reason For Exam: fever, abd pain, JESSICA
06/07/25 16:13
Blood Culture Q30M
SARAH Source: Blood/Venous
Specimen Description:
Blood Culture Q30M
SARAH Source: Blood/Venous
Specimen Description:
Influenza A+B Rapid Molecular Urgent
SARAH Source: Nasal Swab
Specimen Description:
06/07/25 16:43
Cefepime HCl [Maxipime] 2,000 mg IV NOW STA
06/07/25 16:58
Vancomycin [Vancocin] 2,000 mg 0.9% Sodium Chloride 500 ml [Nss] 500 ml IV NOW
06/07/25 17:40
Montoya Placement- Treatment ONCE
Reason for insertion: Acute Retention
06/07/25 18:21
Admit/Transfer Patient As Directed
Co-Sign Provider:
Level of Care: Inpatient admission
Assign to:: IMU- Intermediate Care
Physician / Group: jasper polo
Diagnosis: sepsis
Reason for Hospitalization: sepsis
Expected length of stay greater than two midnights?: Yes
ELOS- Estimated Length of Stay in days: 3
I certify the patient meets the requirements for IP care: Yes
PRN Pain Medication Management As Directed
May give lesser potent ordered pain med per pt: Yes
preference::
Protocol:: Medication orders for pain may be administered in a
manner that supports deferring to patient preference
when the pt is:
- Requesting an ordered lesser potent pain medication.
Least to most potent pain medications are defined
as: acetaminophen < NSAID < tramadol < opioids
(morphine, oxycodone, hydromorphone).
- Requesting a lesser dose of the same medication IF
ORDERED.
- Requesting a less intrusive route of administration
if both routes are prescribed by the provider (PO <
IV).
06/07/25 18:24
Code Status As Directed
Resuscitation Status: Do not resuscitate
Reached after discussion with pt or family/Healthcare POA: Yes
DNR Bracelet Application ONCE
06/07/25 18:32
Bladder Scan As Directed
Follow Bladder Retention/Intermittent Cath Algorithm?: Yes
PRN if no void in __ hours: 6
Frequency: Per Retention Algorithm
If Bladder Scan Result >: 400
then:: Straight cath
06/07/25 18:33
Straight Cath As Directed
Frequency: Per Retention Algorithm
Additional Instructions: straight cath as needed per acute urinary retention algorithm for 24 hrs
Additional Instructions: for bladder scan greater than 400 mL
06/07/25 22:35
Acetaminophen [Tylenol/Feverall] 650 mg RECTAL Q4HPRN PRN
Acetaminophen [Tylenol] 650 mg PO Q4HPRN PRN
Albuterol [ProAIR HFA INHALER] 2 puff INH R Q4HPRN PRN shortness of breath or wheeze
Apixaban [Eliquis] 5 mg PO BID
Benzonatate [Tessalon Perles] 100 mg PO TID
Carvedilol [Coreg] 25 mg PO BID
Dextrose 50%-Water [Dextrose 50% Syringe] 12.5 grams IV [id number] PRN
Ezetimibe [Zetia] 10 mg PO HS
Glucagon [GlucaGen] 1 mg IM PRN PRN
Ipratropium/Albuterol Sulfate [Duoneb] 3 ml INH R Q4HPRN PRN Shortness of breath/wheezing
Ipratropium/Albuterol Sulfate [Duoneb] 3 ml INH R TID
VANCOMYCIN Pharmacy to Dose [VANCOCIN Pharmacy to Dose] 1 each Pharmacy To Prepare [Call Pharmacy To Prepare] 0 ml IV PER PROTOCOL
insulin glargine [Lantus U-100 Insulin] 10 unit SC HS
06/07/25 22:35
UROLOGY CONSULT Routine
Consulting Provider: Arvin Burch
Was physician already notified: Yes
Respiratory Culture/Gram Stain Routine
SARAH Source: Sputum
Specimen Description:
Comment: IF NOT OBTAINED IN ED
Activity As Directed
Activity Level: As Tolerated
Bedside Glucose Monitoring As Directed
Frequency: AC&HS
Additional Instructions:: Change to q6h if pt on TPN, tube feeding or not eating
Intake/ Output As Directed
Frequency: Per unit guidelines
Vital Signs As Directed
Frequency: Per unit guidelines
06/07/25 22:45
Vit C/Vit E/Lutein/Min/Yulan-3 [Ocuvite Softgel] 1 cap PO BID
06/08/25 02:00
Cefepime HCl [Maxipime] 1,000 mg IV Q8H
06/08/25 06:00
Complete Blood Count/No Diff IN AM
Glycohemoglobin (HgbA1c) IN AM
06/08/25 07:30
Insulin Aspart Corrective Low [Novolog Flexpen-Low Resistance] See Protocol SC AC
06/08/25 08:00
Amlodipine [Norvasc] 7.5 mg PO DAILY
Lactobac/Bifidobac [Visbiome] 1 cap PO DAILY
06/08/25 18:00
Rosuvastatin Calcium [Crestor] 20 mg PO QPM
06/09/25 06:00
Complete Blood Count/No Diff IN AM
06/10/25 06:00
Complete Blood Count/No Diff IN AM
06/11/25 06:00
Complete Blood Count/No Diff IN AM
Abnormal Lab Results
06/07/25
15:38
WBC 23.2 H 10^3/uL
(4.8-10.8)
RBC 3.69 L 10^6/uL
(4.70-6.10)
Hgb 10.5 L g/dL
(13.0-18.0)
Hct 31.5 L %
(39.0-52.0)
Abs Immat Gran (auto) 0.2 H 10^3/uL
(0-0.05)
Absolute Neuts (auto) 20.9 H 10^3/uL
(1.4-6.5)
Absolute Lymphs (auto) 0.9 L 10^3/uL
(1.2-3.4)
Absolute Monos (auto) 1.2 H 10^3/uL
(0.1-0.6)
Immature Gran % 0.7 H %
(0-0.5)
Neutrophils % 90.2 H %
(42.2-75.2)
Lymphocytes % 3.7 L %
(20.5-51.1)
Sodium 133 L mmol/L
(135-145)
BUN 47 H mg/dl
(9-20)
Creatinine 1.8 H mg/dL
(0.7-1.3)
Glucose 238 H mg/dl
(70-99)
Total Protein 6.2 L g/dl
(6.3-8.2)
Albumin 3.3 L g/dl
(3.5-5.0)
Urine Occult Blood 4+ A
(Negative)
Ur Leukocyte Esterase 3+ A
(Negative)
Urine WBC 80-90 A /HPF
(0-5)
Urine Bacteria Many A
(Negative)
Urine Albumin 3+ A
(Neg - Trace)
06/07/25 15:38
06/07/25 15:38
Vital Signs
Initial and Last Documented VS:
Initial Vital Signs
BP
128/64
06/07/25 15:19
Last Documented Vital Signs
Temp Pulse Resp BP Pulse Ox
98.6 F 104 22 109/57 95
06/07/25 22:42 06/07/25 22:00 06/07/25 22:00 06/07/25 22:00 06/07/25 20:00
MDM/Problems Addressed
Differential Diagnosis Includes:
85yoM here with weakness x 2 days. Recently finished course of abx for a UTI. Outpatient labs showed a WBC of 12 and creatinine of 1.6. He is febrile to 103.1 on arrival with associated tachycardia. Blood pressure stable. He is awake and alert on
exam. Differential diagnosis includes but is not limited to: UTI, pyelonephritis, bacteremia, pneumonia, sepsis
Initial ED plan: Check septic workup including blood cultures, lactate, COVID/flu swab, chest x-ray, and CT abdomen. Tylenol and IV fluid bolus.
*Pulse Oximetry
SaO2: 96
Oxygen Mode of Delivery: Room air
Patient hypoxic: no (96%)
*EKG
Interpreted by ED Provider?: Yes
EKG Intrepretation Date: 06/07/25
Heart Rate: 100
Rate: normal
Rhythm: a-fib and PVC's
Currie: left axis deviation
QRS Pattern: normal QRS
Ischemia: no ischemia
*Critical Care Note
Total Time (30-74mins, 75-104mins- exclusive of procedures): Not Applicable
Update Note
Update Note:
Labs reveal a leukocytosis with a white count of 23 which is worsening from this morning. Creatinine 1.8 which is also. Baseline creatinine appears to be around 0.9. Lactate within normal limits. UA with 80-[address] shows severe
bilateral hydronephrosis without any obstructing stone. Bladder also appears distended. Montoya catheter ordered for decompression. IV cefepime and vancomycin given based on prior urine culture results. Patient admitted for further management.
ED Attending Note
-
Portions of this chart may have been created with voice recognition software.� Occasional wrong word or��sound alike� substitutions may have occurred due to the inherent limitations of voice recognition software.
Discharge Plan
Departure
Patient Disposition: Admit
Date of Disposition: 06/07/25
Time of Disposition: 17:59
Presentation/result/management discussed w/ accepting MD/DO: Hospitalist
Discharge Problem:
Severe sepsis, Acute kidney injury
Interventions
Interventions:
*Risk Screen - Suicide Last Done: 06/07/25 15:42
*General Assessment Last Done: 06/07/25 15:42
*Neglect/Abuse Screening Last Done: 06/07/25 15:42
*ED- Fall Risk Assessment Last Done: 06/07/25 16:20
*ED COVID-19 Vaccine History Last Done: 06/07/25 16:20
*Nursing Disposition Last Done: 06/07/25 22:36
ED- Cardiac Assessment Last Done: 06/07/25 19:30
ED- Neurological Assessment Last Done: 06/07/25 19:30
ED- Pulmonary Assessment Last Done: 06/07/25 19:30
Discharge Date and Time
Discharge Date/Time: 06/07/25 22:37
[2025-06-07] MEDS: TYLENOL 1000 MG PO (15:57)
[2025-06-07] MEDS: NSS 1000 IV (15:57)
[2025-06-07 16:01] LABS: ALT (SGPT) 32 U/L (0-50); AST (SGOT) 29 U/L (17-59); Albumin 3.3 g/dl (3.5-5.0); Alkaline Phosphatase 89 U/L (38-126); Blood Urea Nitrogen 47 mg/dl (9-20); Calcium 8.8 mg/dl (8.4-10.2); Carbon Dioxide 23 mmol/L (22-30); Chloride 103 mmol/L (98-107); Estimated Creatinine Clearance 32 ml/min; Glucose 238 mg/dl (70-99); Potassium 4.7 mmol/L (3.5-5.1); Sodium 133 mmol/L (135-145); Total Protein 6.2 g/dl (6.3-8.2); eGFR 35.98
[2025-06-07 16:09] LABS: Urine Red Blood Cell 0-2 /HPF (0-2); Urine Squamous Cell 0-2 /LPF (Few); Urine White Cell 80-90 /HPF (0-5)
[2025-06-07 16:31] LABS: Hematocrit 31.5 % (39.0-52.0); Hemoglobin 10.5 g/dL (13.0-18.0); Mean Corp Hgb Conc. 33.3 g/dL (33.0-37.0); Mean Corpuscular Volume 85.4 fL (80.0-94.0); Nucleated Red Blood Cells % 0 % (-); Platelet Count 253 10^3/uL (130-400); Red Cell Dist. Width 14.0 % (11.5-14.5)
[2025-06-07] MEDS: MAXIPIME 2000 MG IV (17:08)
[2025-06-07] MEDS: VANCOCIN 540 MG IV (17:08)
--- NOTE | 2025-06-07 18:03 | HPS.HSE ---
Family Physician
-
Family Physician: Jana Jean Baptiste, DO
Chief Complaint
-
change in MS
History of Present Illness
85yoM with a history of coronary artery disease s/p CABG, atrial fibrillation, hypertension, hyperlipidemia, insulin dependent diabetes, recurrent UTIs presenting via EMS for evaluation of weakness confusion for past few days.He started to become
weak and was hallucinating. patient stated some cough.denied sob and chest pain. denied fever, chills, HERNANDEZ, dizzy. denied abdominal pain,n,v,d. denied dysuria or hematuria. patient is poor historian, not able to provide meaningful story.
Urinalysis positive for UTI. Initiated on cefepime and Vanco. Admitted for further management
Medical History
Past Medical History
Past Medical History: Reports Other
Additional Past Medical History:
Coronary artery disease
Hyperlipidemia
Type 2 diabetes
A-fib
Hypertension
Dermatitis
BPH anemia
Rhabdo
Past Surgical History: Reports Other
Additional Past Surgical History:
Coronary artery bypass graft
Varicose veins
Appendectomy
Left knee total replacement
Social History
Tobacco: Non-smoker
Alcohol: None
Drug: None
Living: [facility]
Family History
Family History: Not pertinent
Allergies / Home Medications
Allergies reflects when Allergies were last updated in [employer].
Home Medications with original date entered in [employer]
Allergy/Medication List:
Allergies
Allergy/AdvReac Type Severity Reaction Status Date / Time
lisinopril Allergy COUGH Verified 06/07/25 15:35
Home Medications
ascorbic acid (vitamin C) 250 mg tablet (Vitamin C) 250 mg PO DAILY Supplement 12/06/24
carvedilol 25 mg tablet 25 mg PO BID Blood Pressure 12/06/24
cholecalciferol (vitamin D3) 25 mcg (1,000 unit) capsule (Vitamin D3) 25 mcg PO QPM Supplement 12/06/24
cyanocobalamin (vitamin B-12) 500 mcg tablet 1,000 mcg PO DAILY Supplement 12/06/24
ezetimibe 10 mg tablet (Zetia) 10 mg PO HS High Cholesterol 12/06/24
glipizide 2.5 mg tablet, extended release 24 hr 2.5 mg PO DAILY Diabetes 12/06/24
insulin glargine 100 unit/mL subcutaneous solution (Lantus U-100 Insulin) 16 unit SC HS Diabetes 12/06/24
metformin 500 mg tablet 500 mg PO BID Diabetes 12/06/24
turmeric 400 mg capsule 400 mg PO HS Supplement 12/06/24
vit C 250 mg-vit E 90 mg-zinc 40 mg-copper 1 be-zmoifc-dficus capsule (PreserVision AREDS-2) 1 tab PO BID Supplement 12/06/24
losartan 50 mg tablet 100 mg (2 x 50 mg) PO HS Blood pressure 1 month #60 tabs 12/09/24
amlodipine 5 mg tablet 7.5 mg PO DAILY Blood pressure 05/09/25
rosuvastatin 10 mg tablet 20 mg PO QPM High cholesterol 05/09/25
acetaminophen 325 mg tablet 650 mg (2 x 325 mg) PO Q4HPRN PRN fever >/= 100.4F, HERNANDEZ,mild pain #0 tabs 05/15/25
albuterol sulfate 90 mcg/actuation aerosol inhaler 2 puff inhalation R Q4HPRN PRN shortness of breath or wheeze #0 grams 05/15/25
benzonatate 100 mg capsule 100 mg PO TID #20 caps 05/15/25
dextromethorphan-guaifenesin 10 mg-100 mg/5 mL oral syrup 10 ml PO Q4HPRN PRN cough 10 days #0 mL 05/15/25
ipratropium 0.5 mg-albuterol 3 mg (2.5 mg base)/3 mL nebulization soln 3 ml inhalation R Q4HPRN PRN Shortness of breath/wheezing #0 mL 05/15/25
loperamide 2 mg capsule 2 mg PO Q6HPRN PRN diarrhea #0 caps 05/16/25
Lactobac no.2-Bifidobac no.1-S. thermo 112.5 billion cell capsule (Visbiome) 1 cap PO DAILY 06/07/25
apixaban 5 mg tablet (Eliquis) 5 mg PO BID Blood Clot Prevention/Tx 06/07/25
bisacodyl 10 mg rectal suppository (Dulcolax (bisacodyl)) 10 mg MN DAILYPRN PRN if no bm by 6th day 06/07/25
coQ10 (ubiquinol) 100 mg capsule 100 mg PO HS 06/07/25
cranberry 500 mg capsule 500 mg PO DAILY 06/07/25
guaifenesin 400 mg tablet 400 mg PO Q6HPRN PRN cough 06/07/25
insulin aspart U-100 100 unit/mL (3 mL) subcutaneous pen (Novolog FlexPen U-100 Insulin aspart) 1 sliding scale dose SC AC 06/07/25
ipratropium 0.5 mg-albuterol 3 mg (2.5 mg base)/3 mL nebulization soln 3 ml inhalation R TID 06/07/25
magnesium hydroxide 400 mg/5 mL oral suspension (Milk of Magnesia) 2,400 mg PO [id number] PRN if no bm by 3rd day give on day 4 06/07/25
ondansetron HCl 4 mg tablet 4 mg PO Q6HPRN PRN nausea 06/07/25
therapeutic multivitamin 1 tab PO DAILY 06/07/25
vitamin E 100 unit tablet 100 unit PO HS 06/07/25
Review of Systems
-
Constitutional: Reports No Symptoms
EENT: Reports No Symptoms
Respiratory: Reports Cough
Cardiac: Reports No Symptoms
Abdomen/GI: Reports No Symptoms
: Reports No Symptoms
Musculoskeletal: Reports No Symptoms
Skin: Reports No Symptoms
Neurological: Reports No Symptoms
Endocrine: Reports No Symptoms
Hematologic/Lymphatic: Reports No Symptoms
Psych: Reports No Symptoms
Physical Exam
Vital Signs
Vital Signs
Temp Pulse Resp BP Pulse Ox
101.2 F H 102 26 106/52 96
06/07/25 17:14 06/07/25 17:49 06/07/25 17:49 06/07/25 17:49 06/07/25 15:52
Physical Exam
General: Well Developed, Well Nourished and No Apparent Distress
HEENT: NormoCephalic, Moist mucous membranes and Atraumatic
Respiratory: Clear
Cardiac: S1/S2 and Regular Rhythm; No Murmur or Rub
GI: Soft, Non Tender, Non Distended and Normal Bowel Sounds; No Organomegaly
Rectal: Deferred by Provider
Musculoskeletal: No Clubbing, No Cyanosis and No Edema
Skin: No Rash
Neuro: AO x 3 and Nonfocal/grossly intact
Psych: Calm
Laboratory Results
-
06/07/25 15:38
06/07/25 15:38
Laboratory Results
Lactic Acid 1.6 mmol/L (0.7-2.0) 06/07/25 15:38
Total Bilirubin 0.7 mg/dl (0.2-1.3) 06/07/25 15:38
AST 29 U/L (17-59) 06/07/25 15:38
ALT 32 U/L (0-50) 06/07/25 15:38
Alkaline Phosphatase 89 U/L (38-126) 06/07/25 15:38
Data Reviewed
-
CT Scan: Report Reviewed by me
Lab Data: Labs Reviewed by me
Impression/Plan
-
#TME/sepsis secondary to pyelonephritis/severe acute bilateral hydroureteronephrosis
#SEVERE URINARY BLADDER OBSTRUCTION with distention of the urinary bladder with complex fluid, hemorrhage, or debris secondary to an obstructing mass (urothelial carcinoma) or scarring from recurrent urinary tract infections.Severely enlarged
prostate gland.
-wbc 23.2,tachycardia, temp 101.2
-CT abdomen pelvis with SEVERE ACUTE BILATERAL HYDROURETERONEPHROSIS with severe bilateral perinephric edema (possibly acute bilateral pyelonephritis). SEVERE URINARY BLADDER OBSTRUCTION with distention of the urinary bladder with complex fluid,
hemorrhage, or debris secondary to an obstructing mass (urothelial carcinoma) or scarring from recurrent urinary tract infections.Severely enlarged prostate gland. Severe calcific atherosclerotic plaque in the abdominal aorta. Mild
hepatosplenomegaly. Moderate circumferential wall thickening in the rectum suggesting proctitis.Small hiatal hernia.
-chest x ray with Moderate amount of airspace opacity in the basilar segments of the lower lobes which has increased since 05/09/2025. Diagnostic possibilities are (1) moderate bilateral lower lobe pneumonia or (2) subsegmental atelectasis (given
mild to moderately decreased bilateral lung volumes). Mild enlargement of the cardiomediastinal silhouette.
- IV cefepime, vancomycin continued
- Cultures and from ER
-urology consulted.
# Possible moderate bilateral lower lobe pneumonia
- IV Vanco and cefepime
- Tylenol as needed for fever pain
- Continue to monitor
#anemia of chronic disease
-hgb stable at 10.5
-no active bleeding
-ctm
#acute kidney injury/hyponatremia likely hypovolemic
-cr 1.8, na 133
-Normal saline continued
- BMP in the morning
#Hypertension
-Norvasc continue with hold parameter
- Hold losartan due to JESSICA
#DM II
-Continue glipizide
-Continue Lantus 10 at bedtime for now
-Low-dose sliding scale
#AFIB - permanent afib
-Tachycardia in ER
-Eliquis continued
- Coreg continue with all parameters
#CAD
- continue zetia and statin
#CODE STATUS: DNR
#DVT prophylaxis: apixaban
#Diet: DM Diet
--- NOTE | 2025-06-07 18:51 | W.PN.UPDATE ---
Update Note
Progress Note Update
I could not get any information from the patient as
Information gathered by chart review and speaking with the ER staff.
This note serves as an addendum to the H&P by transition advisor KYRA Debi BROWN
HPI
85M HX CAD status post CABG, permanent atrial fibrillation on anticoagulation, insulin-dependent diabetes, hypertension and BPH with recurrent UTI Patient was recently hospitalized from 05/09/25-05/16/25 for COVID.
- evaluation of weaknes\\
- he was discharged to [facility] after his hospitalization.
- was doing very well in rehab facility and was about to be discharged.
- states he was ambulating unassisted 2 days ago but by that same afternoon 'he was a different person.'
- weak and was hallucinating. He was unable to transfer himself without assistance.
lab work done at the nursing facility this morning.
- WCC 20 and a creatinine of 1.6.
- UA was positive for leukocytes and patient was sent to the ED for evaluation.
- febrile to 103.1 on arrival. Temperature was 99.9 yesterday at [facility].
Of note, patient finished antibiotics less than a week ago for a UTI.
Relevant VS
Vital Signs
Temp Pulse Resp BP Pulse Ox
101.2 F H 102 26 106/52 96
06/07/25 17:14 06/07/25 17:49 06/07/25 17:49 06/07/25 17:49 06/07/25 15:52
PE
Gen:
HEENT:moist OM
Neck:supple, no JVD
Lungs: clear
Cor: RRR
Abdomen: benign exam
RESIDENTIAL SPECIALIST: lethargic
MS:trace edema
Abnormal Lab Results
06/07/25
15:38
WBC 23.2 H
RBC 3.69 L
Hgb 10.5 L
Hct 31.5 L
Abs Immat Gran (auto) 0.2 H
Absolute Neuts (auto) 20.9 H
Absolute Lymphs (auto) 0.9 L
Absolute Monos (auto) 1.2 H
Immature Gran % 0.7 H
Neutrophils % 90.2 H
Lymphocytes % 3.7 L
Sodium 133 L
BUN 47 H
Creatinine 1.8 H
Glucose 238 H
Total Protein 6.2 L
Albumin 3.3 L
Urine Occult Blood 4+ A
Ur Leukocyte Esterase 3+ A
Urine WBC 80-90 A
Urine Bacteria Many A
Urine Albumin 3+ A
CXR
1. Moderate amount of airspace opacity in the basilar segments of the lower lobes which has increased since 05/09/2025. DDX(1) moderate bilateral lower lobe pneumonia or
(2) subsegmental atelectasis (given mild to moderately decreased bilateral lung volumes).
2. Mild enlargement of the cardiomediastinal silhouette.
3. Previous CABG surgery
CT Abd/pel Without Iv Or Oral
1. SEVERE ACUTE BILATERAL HYDROURETERONEPHROSIS with severe bilateral perinephric edema (possibly acute bilateral pyelonephritis).
2. SEVERE URINARY BLADDER OBSTRUCTION with distention of the urinary bladder with complex fluid, hemorrhage, or debris secondary to an obstructing mass (urothelial carcinoma) or scarring from recurrent urinary tract infections.
3. Previous TURP.
4. Severely enlarged prostate gland.
5. Severe calcific atherosclerotic plaque in the abdominal aorta.
6. Mild hepatosplenomegaly.
7. Moderate circumferential wall thickening in the rectum suggesting proctitis.
8. Small hiatal hernia.
9. 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
10. Mild cardiomegaly.
11. Previous CABG surgery.
Last hospitalist admission: 05/09/25 - 05/16/25
ASSESSMENT & PLAN
Pending Rx reconciliation
Sepsis due to complicated UTI further complicated by obstructive JESSICA
possibly acute bilateral pyelonephritis, severe b/l HUN
Bladder obstruction
HX Prior TURP
Severely enlarged prostate gland.
- Montoya cath placement
- septic IVF LR
- BCx , UCx sent
- check LA
- Agree with IV vancomycin and CFP
- Uro consulted - 18F Montoya Cath or 3 way cath insertion suggested
Associated TME due to sepsis and JESSICA
- fall precaution
- Tx sepsis , corect JESSICA and observe MS
Essential Hypertension
- continue amlodipine
- Hold losartan due to JESSICA
IR DM2
- TECHNOLOGY EDUCATION INSTRUCTOR NovoLog 4 3 times daily AC as well as Lantus 14 at bedtime at home.
- hold metformin
- hold glipizide
- ISS low
A Fib - rate controlled
- cont. carvedilol with holding parameters
- continue Apixaban
CAD
- continue the statin and Zetia
DVT Px: TECHNOLOGY EDUCATION INSTRUCTOR Apixaban
DNR documented on [facility] papers
IMU
[2025-06-07] MEDS: LIDOCAINE URO-JET 2% 2 SYRINGE TOPICAL (20:43)
[2025-06-07] MEDS: DILAUDID 0.25 MG IV ×2 (20:43→23:10)
--- NOTE | 2025-06-07 23:06 | PHA.VAN.IN ---
Assessment
- Assessment
Renal Function: SCR Appears Elevated from baseline (06/01/25 BASELINE SCR: 0.9)
Concomitant Antimicrobials: CEFEPIME
- Previous Dosing Experience
Previous Regimen: 750MG IV Q12H
Date of Regimen: 03/30/19
Provided Trough of: UNKNOWN
Provided AUC of: UNKNOWN
Patient's SCR is: Elevated compared to previous dosing experience (03/30/19 SCR = 0.9)
Patient's weight is: Elevated compared to previous dosing experience (03/30/19 WT = 82.6KG)
Plan
- Plan
Initial / Loading Dose: 2GM
Maintenance Regimen: DOSING BY RANDOM LEVELS
Monitoring: RANDOM VANCOMYCIN LEVEL 06/08/25 AM
Pharmacokinetics Vancomycin I
- -
Patient Age: 85
Patient Sex: Male
Vancomycin Day #: 1
Indication: Pulmonary/Respiratory (SEPSIS, TME)
Requesting Provider: KEVIN
Height / Weight:
Height 5 ft 9 in
Actual Weight 90.8 kg
Pertinent Past Medical History: DM; RECENT HOSPITALIZATION FOR UTI
- Vital Signs / Lab Results
Temp Pulse Resp BP Pulse Ox
98.6 F 104 22 109/57 95
06/07/25 22:42 06/07/25 22:00 06/07/25 22:00 06/07/25 22:00 06/07/25 20:00
Lab Results - Hematology
06/07/25
15:38
WBC 23.2 H
Lab Results - Chemistry
06/07/25
15:38
BUN 47 H
Creatinine 1.8 H
Estimated Creat Clear 32
Albumin 3.3 L
06/07/25
15:38
Lactic Acid 1.6
Lab Results - Urine
06/07/25
15:38
Urine Nitrite Negative
Ur Leukocyte Esterase 3+ A
Urine WBC 80-90 A
Ur Squamous Epith Cells 0-2
Urine Bacteria Many A
Microbiology Results
06/07/25 16:13 Influenza Types A & B (TOREY) - Final
Nasal Swab Negative for Influenza A & B, NAAT
Negative results must be combined with clinical observations
and patient history.
Nucleic Acid Amplification test (NAAT)performed on the
[employer] platform.
[2025-06-07] MEDS: LR 1000 IV (23:10)
[2025-06-07] MEDS: LANTUS 0.1 UNITS SC (23:19)
[2025-06-07] MEDS: DUONEB 3 ML INH (23:24)
[2025-06-07 23:29] LABS: Glucose - Point of Care 252 mg/dl (70-99)
[2025-06-07] MEDS: OCUVITE SOFTGEL 1 CAP PO (23:39)
[2025-06-07] MEDS: ZETIA 10 MG PO (23:39)
[2025-06-07] MEDS: COREG 25 MG PO (23:39)
[2025-06-07] MEDS: ELIQUIS 5 MG PO (23:39)
[2025-06-07] MEDS: TESSALON PERLES 100 MG PO (23:39)
[2025-06-08] VITALS (12 sets, daily range): BP systolic 102–139; BP diastolic 54–87; BMI 29.6
[2025-06-08] MEDS: DILAUDID 0.25 MG IV ×2 (00:47→03:24)
[2025-06-08] MEDS: STERILE WATER FOR INJECTION 10 ML IV (01:00)
[2025-06-08] MEDS: MAXIPIME 1000 MG IV (01:00)
[2025-06-08] MEDS: VALIUM INJECTION 2 MG IV ×2 (02:14→06:56)
--- NOTE | 2025-06-08 03:02 | PTCARENOTE ---
Assumed care of Pt from ED RN. Pt having complaints of pain, see mar for director of nuclear medicine. Pt telling this RN he was having a hard time falling a sleep. Emotional support, repositioning and more pain medication attempted. Pt continues to not be able to
sleep Night AERIAL PHOTOGRAPH INTERPRETER made aware, one time Valium given with positive results for a short time. Call mendez within reach, bed alarm on.
[2025-06-08 03:58] LABS: Hematocrit 25.7 % (39.0-52.0); Hemoglobin 8.8 g/dL (13.0-18.0); Mean Corp Hgb Conc. 34.2 g/dL (33.0-37.0); Mean Corpuscular Volume 84.5 fL (80.0-94.0); Platelet Count 230 10^3/uL (130-400); Red Cell Dist. Width 13.9 % (11.5-14.5)
[2025-06-08 04:28] LABS: Blood Urea Nitrogen 47 mg/dl (9-20); Calcium 8.1 mg/dl (8.4-10.2); Carbon Dioxide 18 mmol/L (22-30); Chloride 106 mmol/L (98-107); Estimated Creatinine Clearance 33 ml/min; Glucose 327 mg/dl (70-99); Potassium 4.6 mmol/L (3.5-5.1); Sodium 131 mmol/L (135-145); eGFR 41.44
[2025-06-08] MEDS: LIDOCAINE URO-JET 2% 1 SYRINGE TOPICAL (07:30)
--- NOTE | 2025-06-08 07:37 | W.PN.UPDATE ---
Update Note
Progress Note Update
~ 20:30 Pt seen in the ED after admission for penile pain. Per RN, traumatic insertion of abreu catheter earlier. Abreu placed per Dr. Burch, Urology. No blood noted, no swelling noted, no bruising/discoloration noted. Order placed for uro-jet and
Dilaudid 0.25 mg IV x 1. Will monitor for effectiveness of pain medication and adjust as needed.
Patient requiring multiple doses of Dilaudid and Valium overnight for penile pain. Does obtain some relief from pain medication. Abreu draining cloudy yellow urine, no bladder distension, non-tender abdomen. Bladder scanned for 450 mls, PRN hand
irrigation ordered.
~ 6 am Hand irrigation done, started draining dark red/bloody drainage, then unable to irrigate. Large clot removed. TT Dr. Kwong, he will be up to see patient shortly. Order to replaced 3 way abreu w/ or 24 F, and start CBI. Abreu replaced w/.
Dr. Kwong at bedside, additional orders to hold Eliquis and make patient NPO. Orders placed.
--- NOTE | 2025-06-08 07:42 | PTCARENOTE ---
Pt Montoya putting out yellow cloudy urine, 650 over night. Pt having complaints of feeling full and pain. CLERICAL AIDE TEACHER made aware. RN to Irrigate / flushing presenting with 7 in long clot. Urology to bed side to start CBI. at bedside for emotional support
of Pt.
--- NOTE | 2025-06-08 07:55 | W.PN.HOSP.TC ---
Today's Communication/Plan
-
see plan
Assessment / Plan
Assessment / Plan
Gen: NAD, Awake and alert
Eyes: EOMI, PERRLA, no scleral icterus.
Neck: supple.
CV: RRR, +S1/S2, no m/r/g.
Resp: CTAB, no rales, wheezes, or rhonchi.
Abd: +BS, soft, NT, ND
Skin: No rashes.
Neuro: CN 2-12 intact, non-focal.
Psych: Normal mood and affect.
06/07/25 16:13 Nasal Swab Influenza Types A & B (TOREY) - Final
Negative for Influenza A & B, NAAT
Negative results must be combined with clinical observations
and patient history.
Nucleic Acid Amplification test (NAAT)performed on the
[employer] platform.
CT A/P:
1. SEVERE ACUTE BILATERAL HYDROURETERONEPHROSIS with severe bilateral perinephric edema (possibly acute bilateral pyelonephritis).
2. SEVERE URINARY BLADDER OBSTRUCTION with distention of the urinary bladder with complex fluid, hemorrhage, or debris secondary to an obstructing mass (urothelial carcinoma) or scarring from recurrent urinary tract infections.
3. Previous TURP.
4. Severely enlarged prostate gland.
5. Severe calcific atherosclerotic plaque in the abdominal aorta.
6. Mild hepatosplenomegaly.
7. Moderate circumferential wall thickening in the rectum suggesting proctitis.
8. Small hiatal hernia.
9. 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
10. Mild cardiomegaly.
11. Previous CABG surgery.
CXR:
1. Moderate amount of airspace opacity in the basilar segments of the lower lobes which has increased since 05/09/2025. Diagnostic possibilities are (1) moderate bilateral lower lobe pneumonia or (2) subsegmental atelectasis (given mild to
moderately decreased bilateral lung volumes).
2. Mild enlargement of the cardiomediastinal silhouette.
3. Previous CABG surgery.
Sepsis due to acute UTI/pyelonephritis due to obstructive uropathy:
-with acute metabolic encephalopathy
-Enlarged prostate is causing obstructive uropathy, Montoya catheter placed in the ER
-trend leukocytosis and fever curve
-follow BCxs/UCx
-ID/Uro following
-cont CBI, hold eliquis, urine currently clear
-cont Rocephin as per ID
-CXR findings likely atelectasis (at this time PNA has been ruled out)
JESSICA and hyponatremia:
-likely due to sepsis and prerenal azotemia
-cont IVFs
Other problems:
Anemia of chronic disease: Hb stable (drop likely dilutational)
Essential HTN: cont Norvasc/Coreg
DM2: currently on Glipizide/Lantus/SSI/accuchecks
Permanent afib: cont Coreg, holding Eliquis with hematuria
CAD: cont Zetia and statin
DNR/apixaban
Anticipated Discharge: > 48 hours
Subjective/Interval History
-
Date of Service: June 08, 2025
Pt states he feels 'excellent.'
Objective Data
-
Labs:
Laboratory Results
06/08/25 06/08/25
03:30 03:48
WBC 22.8 H
Hgb 8.8 L
Hct 25.7 L
Plt Count 230
Sodium 131 L
Potassium 4.6
Chloride 106
Carbon Dioxide 18 L
BUN 47 H
Creatinine 1.6 H
Glucose 327 H
Calcium 8.1 L
Vital Signs:
Vital Signs
Temp Pulse Resp BP Pulse Ox
98.4 F 97 19 115/71 92
06/08/25 04:09 06/08/25 06:00 06/08/25 06:00 06/08/25 06:00 06/08/25 06:00
I&O
06/07/25 06/08/25 06/09/25
06:59 06:59 06:59
Intake Total 800 / 800
Output Total 950 / 950
Balance -150 / -150
[2025-06-08 08:01] LABS: Glucose - Point of Care 300 mg/dl (70-99)
[2025-06-08] MEDS: DUONEB 3 ML INH ×4 (08:35→22:46)
--- NOTE | 2025-06-08 08:35 | CON.ID ---
Consultation
-
Date/Time Consultation Requested: June 08, 2025 0816
Date/Time Consultation Performed: June 08, 2025 0835
Requesting Provider: Dr. Ronal Thurston
Performing Provider: Dr. Kathy Wheat
Reason for Consultation: Pyelonephritis
Chief Complaint / Past History
Chief Complaint
Weakness and change in mental status
History of Present Illness
Sami Mcarthur is an 85-year-old man being evaluated at the request of Dr. Thurston regarding pyelonephritis. History obtained mostly from his at bedside. He is a 85-year-old male with history of diabetes mellitus, BPH, nephrolithiasis who
[facility] 07 due to several day history of weakness and confusion. He was recently hospitalized in May 2025 with COVID and discharged to [facility] rehab. Per he was treated twice for UTI while at rehab.
He was doing well and was to be discharged soon from rehab. However on Saturday evening he started feeling weak with malaise. He then developed hallucinations. Appetite poor. UA, urine culture collected. Blood work also collected and noted to
have a high white count. He was therefore sent to the ER. In the ED he was febrile temperature 103.1, white count 23.1. Patient noted to have gross hematuria; large clot removal by hand irrigation but then he stopped draining urine. Bladder scan
noted to be in retention for 150 cc. CAT scan showed severe bilateral hydronephrosis with severe bladder obstruction from complex fluid, hemorrhage, or debris. Urologist placed Montoya. Patient reports he is feeling better today. He denies
suprapubic pain or flank pain. No chills. He has chronic cough even before the COVID infection. Cough is stable and nonproductive.
Past History
Additional Past Medical History:
DM type II
A-fib
CAD s/p CABG
HTN
Nephrolithiasis
BPH hx TURP
Appendectomy
Left total knee replacement
Allergy History:
lisinopril Allergy (Verified 06/07/25 15:35)
COUGH
Medications Reviewed: Yes
Current Antibiotics:
Cefepime
Status post vancomycin
Social History
Tobacco: Non-Smoker
Alcohol: None
Drug: None
Personal:
Employment: Retired
Family History
Family History: Not Pertinent
Review of Systems
Review of Systems
General: Change in Appetite
HEENT: Negative Sinus Problems or Headache
Cardiovascular: Negative Chest Pain or Dyspnea
Respiratory: Cough; Negative Dyspnea or Sputum Production
Gasteroenterology: Negative Nausea, Vomiting or Diarrhea
Genital / Urological: Hematuria; Negative Dysuria or Flank Pain
Endocrine: Weakness and Fatigue
Neurological: Negative Dizziness
All systems: All other systems were reviewed and were negative
Vital Signs
Temp Pulse Resp BP Pulse Ox
98.9 F 97 19 115/71 92
06/08/25 07:04 06/08/25 06:00 06/08/25 06:00 06/08/25 06:00 06/08/25 06:00
Selected Entries
06/07/25
15:29 06/07/25
17:14
Temp 103.1 F H 101.2 F H
Physical Exam
Physical Exam
Constitutional: Acutely Ill
Head: Other (No frontal or max or sinus tenderness)
Eyes: No Conjunctival Hemorrhage and Sclera Anicteric
Cardiovascular: Regular Rate and S1/S2
Pulmonary: Rales (Lipase)
Gastrointestinal: Soft, Non Tender, Non Distended and Normal Bowel Sounds
Genito-Urinary: Montoya and Hematuria
Extremities: Negative Edema
Neurological: Awake and Other (Drowsy); Negative Meningeal Signs
Lab / Diagnostic Study Results
06/08/25 03:30
06/08/25 03:48
Abs Immat Gran (auto) 0.2 10^3/uL (0-0.05) H 06/07/25 15:38
Absolute Neuts (auto) 20.9 10^3/uL (1.4-6.5) H 06/07/25 15:38
Absolute Lymphs (auto) 0.9 10^3/uL (1.2-3.4) L 06/07/25 15:38
Absolute Monos (auto) 1.2 10^3/uL (0.1-0.6) H 06/07/25 15:38
Absolute Basos (auto) 0.0 10^3/uL (0-0.2) 06/07/25 15:38
Immature Gran % 0.7 % (0-0.5) H 06/07/25 15:38
Neutrophils % 90.2 % (42.2-75.2) H 06/07/25 15:38
Lymphocytes % 3.7 % (20.5-51.1) L 06/07/25 15:38
Monocytes % 5.3 % (1.7-9.3) 06/07/25 15:38
Eosinophils % 0.0 % (0-6) 06/07/25 15:38
Basophils % 0.1 % (0-2) 06/07/25 15:38
Lactic Acid 1.6 mmol/L (0.7-2.0) 06/07/25 15:38
Urine WBC 80-90 /HPF (0-5) A 06/07/25 15:38
Ur Squamous Epith Cells 0-2 /LPF (Few) 06/07/25 15:38
Microbiology Results
Micro:
06/08/25 03:26 MRSA Screen - Pending
Nose
06/07/25 16:13 Influenza Types A & B (TOREY) - Final
Nasal Swab Negative for Influenza A & B, NAAT
Negative results must be combined with clinical observations
and patient history.
Nucleic Acid Amplification test (NAAT)performed on the
[employer] platform.
06/07/25 16:13 Blood Culture - Pending
Blood/Venous
06/07/25 16:13 Blood Culture - Pending
Blood/Venous
06/07/25 CT a/p: SEVERE ACUTE BILATERAL HYDROURETERONEPHROSIS with severe bilateral perinephric edema (possibly acute bilateral pyelonephritis). SEVERE URINARY BLADDER OBSTRUCTION with distention of the urinary bladder with complex fluid,
hemorrhage, or debris secondary to an obstructing mass.
06/07/25 CXR: Moderate amount of airspace opacity in the basilar segments of the lower lobes which has increased since 05/09/2025. Diagnostic possibilities are (1) moderate bilateral lower lobe pneumonia or (2) subsegmental atelectasis (given mild to
moderately decreased bilateral lung volumes).
Assessment / Plan
# Complicated UTI due to severe bladder outlet obstruction/clot retention
# Bacteremia from source
# Fever
# Leukocytosis
# sepsis
# hx BPH
- Repeat Bcx's in am
- 06/05 Ucx Klebsiella.
- Narrow cefepime to ceftriaxone 2g IV q24
- Trend temps/wbc
# Conditions CAMPAIGN DIRECTOR
DM type II
A-fib
CAD s/p CABG
HTN
Nephrolithiasis
BPH hx TURP
Appendectomy
Left total knee replacement
--- NOTE | 2025-06-08 08:52 | W.PN.UPDATE ---
Update Note
Progress Note Update
Acute urinary retention
Bilateral hydroureteronephrosis
JESSICA
cUTI w/ ascending infection
BPH s/p TURP (>5 yrs ago @[facility])
Hemorrhagic cystitis
24Fr 4-way catheter exchanged this AM at bedside w/ Urology - hand irrigated w/ minimal clot ouput.
Suprapubic area soft and non-distended
Hand irrigation demonstrated blood-tinged urine.
CBI initiated at moderate drip - aqueous punchy urine draining well.
Eliquis last taken 7/7 PM per patient/spouse.
Plan:
- Continue CBI through day, wean as tolerated
- IV antibiotics per Hospitalist pending UCx/BCx
- Trend WBC/Hgb/Cr - transfuse prn
- HOLD Eliquis (AM dose 06/08 held)
D/w IMU.
D/w patient and spouse (Sirena).
[2025-06-08] MEDS: NORVASC 7.5 MG PO (10:06)
[2025-06-08] MEDS: VISBIOME 1 CAP PO (10:06)
[2025-06-08] MEDS: NOVOLOG FLEXPEN-LOW RESISTANCE 4 UNITS SC (10:06)
[2025-06-08] MEDS: TESSALON PERLES 100 MG PO ×3 (10:06→20:47)
[2025-06-08] MEDS: OCUVITE SOFTGEL 1 CAP PO ×2 (10:06→20:47)
[2025-06-08] MEDS: COREG 25 MG PO ×2 (10:07→20:47)
--- NOTE | 2025-06-08 10:08 | CM ---
Patient from [facility] with Dx Complicated UTI due to bladder outlet obstruction/clot retention. Room air. Receiving IVF, IV Abx, IV Dilaudid prn. Abreu w CBI. Per nurse; forgetful.
Spoke with Jennifer Abdullahi [facility];
the patient was there for short term rehab.
They are waiting for the to confirm if she wants to hold his bed there.
The ph for report [phone], fax [phone].
Spoke with Nurse Martina [facility];
the patient was initially A/O 2-3 however for the last 2 days there he had altered mental status and was forgetful.
Initially patient required 1 person assist for transfers however or the last 2 days there he needed 2 person assist to transfer.
He did not have any O2, no abreu at [facility].
The patient was participating with PT/OT.
Message to Dr Thurston; patient will need PT/OT Evals when medically appropriate.
Plan follow up with patient/ after seen by PT/OT.
[2025-06-08] MEDS: ROCEPHIN 2000 MG IV (10:22)
[2025-06-08] MEDS: FLUSH (NSS) 1 FLUSH IV ×2 (10:22→10:27)
[2025-06-08] MEDS: STERILE WATER FOR INJECTION 20 ML IV (10:22)
--- NOTE | 2025-06-08 10:38 | PTCARENOTE ---
Patient received from sociology research assistant. VSS. Night RN in room, patients 3 way abreu with bloody clots and dark red output. Valium given for cramps. Night MANAGER [employer] was in room and changed 3 way abreu. Urology present and gave CBI orders. LR continuing.
CBI at a slow enough pace to keep urine light punch colored and free of clots. No testing scheduled at this time. Call mendez in reach.
[2025-06-08] MEDS: LR 1000 IV (12:18)
[2025-06-08 13:35] LABS: Glucose - Point of Care 266 mg/dl (70-99)
[2025-06-08] MEDS: NOVOLOG FLEXPEN-LOW RESISTANCE 3 UNITS SC ×2 (13:46→17:02)
--- NOTE | 2025-06-08 14:50 | PTOTSP ---
Speech Language Pathology
Pt seen for clinical bedside swallow evaluation. told RN that pt has been doing better with softer solids. Per facility facesheet, pt on regular solids/thin liquids. Confusion noted. P.O. trials of puree, regular solids, and thin liquids
provided. Pt insisted on feeding self with significant difficulty noted. Poor awareness noted. Impulsive rate of intake also noted. Adequate mastication, bolus formation, and A-P transit noted. Increased WOB noted with P.O. intake, but no overt
signs of aspiration. Clear vocal quality noted.
Recommend:
(1) IDDSI Level 6 (soft/bite sized) solids/thin liquids
(2) Aspiration precautions: sit upright, slow rate, full supervision for slow rate
(3) Meds as tolerated
(4) CURTAIN FRAMER to continue to follow
--- NOTE | 2025-06-08 14:55 | W.PN.URO.CBU ---
Today's Communication / Plan
-
Wean CBI as tolerated o/n - plan for clamp trial in AM
Maintain Montoya catheter to drainage
Plan for outpatient voiding trial in 1 week (given severity of retention, decompression hematuria, JESSICA, and cUTI)
Cystoscopy and UDS as outpatient
Assessment / Plan
-
Hemorrhagic cystitis
Acute urinary retention
Bilateral hydroureteronephrosis
JESSICA
cUTI w/ ascending infection
BPH s/p TURP (>5 yrs ago @[facility])
H/H w/ drift as expected from hemorrhagic cystitis - Eliquis held and CBI initiated.
Cr elevated c/w JESSICA from AUR + bilateral hydroureteronephrosis - Montoya catheter in place.
Urine cleared by mid-day on CBI.
Diagnosis
-
Date of Service: June 08, 2025
-
Patient Diagnosis:
Hemorrhagic cystitis
Acute urinary retention
Bilateral hydroureteronephrosis
JESSICA
cUTI w/ ascending infection
BPH s/p TURP (>5 yrs ago @[facility])
Subjective
-
Montoya catheter rechecked @1230 mid-day - crystal clear UOP on low rate CBI (previously punch-colored this AM).
Soft abdomen and suprapubic area.
Patient notes mild suprapubic discomfort - improved from AM.
Objective
-
Vital Signs
Temp Pulse Resp BP Pulse Ox
99.4 F 93 20 115/65 96
06/08/25 11:05 06/08/25 13:43 06/08/25 13:43 06/08/25 10:06 06/08/25 13:43
Intake and Output
06/07/25 06/08/25 06/09/25
06:59 06:59 06:59
Intake Total 800 / 800
Output Total 950 / 950
Balance -150 / -150
Intake:
Oral fluids 240 / 240
IV fluids (Total) 560 / 560
Output:
Urine, Montoya 950 / 950
Laboratory Results
06/08/25 03:30
06/08/25 03:48
Physical Exam
-
General - well developed, well nourished, no acute distress
Abdomen - soft, non-tender, non-distended, suprapubic area soft
Genitalia - normal phallus, 3-way catheter w/ clear UOP on low rate CBI
Skin - warm & dry with no rash
Extremities - no clubbing, no cyanosis, no edema
[2025-06-08] MEDS: CRESTOR 20 MG PO (17:02)
[2025-06-08 17:09] LABS: Glucose - Point of Care 274 mg/dl (70-99)
[2025-06-08] MEDS: LANTUS 0.1 UNITS SC (20:47)
[2025-06-08] MEDS: ZETIA 10 MG PO (20:47)
[2025-06-08 20:57] LABS: Glucose - Point of Care 372 mg/dl (70-99)
[2025-06-09] VITALS (13 sets, daily range): BP systolic 103–143; BP diastolic 58–79; BMI 29.6
[2025-06-09] MEDS: LR 1000 IV ×2 (00:17→13:15)
[2025-06-09 03:32] LABS: Hematocrit 24.9 % (39.0-52.0); Hemoglobin 8.6 g/dL (13.0-18.0); Mean Corp Hgb Conc. 34.5 g/dL (33.0-37.0); Mean Corpuscular Volume 83.3 fL (80.0-94.0); Platelet Count 245 10^3/uL (130-400); Red Cell Dist. Width 14.3 % (11.5-14.5)
[2025-06-09] MEDS: DUONEB 3 ML INH ×3 (07:33→19:17)
--- NOTE | 2025-06-09 08:34 | PTCARENOTE ---
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 Patient resting comfortably in bed. AAOx2, some confusion, VSS. No events noted overnight. No complaints of pain at this time. LR continuing @ 80mL/hr. CBI at a slow trickle to keep slow irrigation,
clear/yellow. No testing scheduled at this time. Call mendez in reach.
[2025-06-09 09:09] LABS: Glucose - Point of Care 289 mg/dl (70-99)
[2025-06-09] MEDS: NORVASC 7.5 MG PO (09:54)
[2025-06-09] MEDS: OCUVITE SOFTGEL 1 CAP PO ×2 (09:54→19:54)
[2025-06-09] MEDS: VISBIOME 1 CAP PO (09:54)
[2025-06-09] MEDS: TESSALON PERLES 100 MG PO ×3 (09:54→19:54)
[2025-06-09] MEDS: COREG 25 MG PO ×2 (09:55→19:52)
[2025-06-09] MEDS: NOVOLOG FLEXPEN-LOW RESISTANCE 3 UNITS SC (09:55)
[2025-06-09] MEDS: FLUSH (NSS) 1 FLUSH IV ×3 (09:57→10:07)
[2025-06-09] MEDS: ROCEPHIN 2000 MG IV (09:58)
[2025-06-09] MEDS: STERILE WATER FOR INJECTION 20 ML IV (09:58)
--- NOTE | 2025-06-09 10:48 | W.PN.ID1 ---
Date of Service
Date of Service: June 09, 2025
Today's Communication
Continue ceftriaxone.
Assessment / Plan
# Klebsiella Complicated UTI due to severe bladder outlet obstruction/clot retention
# Klebsiella Bacteremia from source
# Fever resolved
# Leukocytosis trending down
# sepsis
# hx BPH
- Follow repeat Bcx's
- 7/ Ucx Klebsiella.
- Continue ceftriaxone 2g IV q24 (d3)
- Trend wbc
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
DM type II
A-fib
CAD s/p CABG
HTN
Nephrolithiasis
BPH hx TURP
Appendectomy
Left total knee replacement
Chief Complaint
-: UTI and Bacteremia
Subjective / Review of Systems
Pt feels better. He is hungry.
Vital Signs / Physical Exam
Vital Signs
Vital Signs
Temp Pulse Resp BP Pulse Ox
99.7 F 105 14 109/75 97
06/09/25 03:07 06/09/25 09:54 06/09/25 07:36 06/09/25 09:54 06/09/25 07:36
Physical Exam
Constitutional: No Acute Distress
Cardiovascular: Regular Rate and S1/S2
Pulmonary: Clear
Gastrointestinal: Soft, Non Tender, Non Distended and Normal Bowel Sounds
Genito-Urinary: Montoya and Clear Urine
Extremities: Negative Edema
Neurological: AO x 3
Objective Data
Lab Data
Lab Results
06/09/25 03:12
06/08/25 03:48
Estimated Creat Clear 33 ml/min 06/08/25 03:48
Lactic Acid 1.6 mmol/L (0.7-2.0) 06/07/25 15:38
Total Bilirubin 0.7 mg/dl (0.2-1.3) 06/07/25 15:38
AST 29 U/L (17-59) 06/07/25 15:38
ALT 32 U/L (0-50) 06/07/25 15:38
Alkaline Phosphatase 89 U/L (38-126) 06/07/25 15:38
Most recent labs reviewed.
Micro Results:
06/08/25 03:26 MRSA Screen - Final
Nose No Methicillin Resistant Staphylococcus aureus isolated.
06/09/25 03:12 Blood Culture - Pending
Blood/Venous
06/09/25 03:12 Blood Culture - Pending
Blood/Venous
06/07/25 16:13 Blood Culture - Preliminary
Blood/Venous Positive culture in progress
Gram Stain - Preliminary
06/07/25 16:13 Blood Culture - Preliminary
Blood/Venous Klebsiella pneumoniae group
Gram Stain - Preliminary
06/07/25 16:13 Influenza Types A & B (TOREY) - Final
Nasal Swab Negative for Influenza A & B, NAAT
Negative results must be combined with clinical observations
and patient history.
Nucleic Acid Amplification test (NAAT)performed on the
[employer] platform.
06/07/25 CT a/p: SEVERE ACUTE BILATERAL HYDROURETERONEPHROSIS with severe bilateral perinephric edema (possibly acute bilateral pyelonephritis). SEVERE URINARY BLADDER OBSTRUCTION with distention of the urinary bladder with complex fluid,
hemorrhage, or debris secondary to an obstructing mass.
06/07/25 CXR: Moderate amount of airspace opacity in the basilar segments of the lower lobes which has increased since 05/09/2025. Diagnostic possibilities are (1) moderate bilateral lower lobe pneumonia or (2) subsegmental atelectasis (given mild to
moderately decreased bilateral lung volumes).
--- NOTE | 2025-06-09 12:34 | W.PN.HOSP.TC ---
Today's Communication/Plan
-
see plan
Assessment / Plan
Assessment / Plan
Gen: NAD, Awake and alert
Eyes: EOMI, PERRLA, no scleral icterus.
Neck: supple.
CV: RRR, +S1/S2, no m/r/g.
Resp: CTAB, no rales, wheezes, or rhonchi.
Abd: +BS, soft, NT, ND
Skin: No rashes.
Neuro: CN 2-12 intact, non-focal.
Psych: Normal mood and affect.
06/07/25 16:13 Blood/Venous Blood Culture - Preliminary
Positive culture in progress
06/07/25 16:13 Blood/Venous Gram Stain - Preliminary
06/07/25 16:13 Blood/Venous Blood Culture - Preliminary
Klebsiella pneumoniae group
06/07/25 16:13 Blood/Venous Gram Stain - Preliminary
06/08/25 03:26 Nose MRSA Screen - Final
No Methicillin Resistant Staphylococcus aureus isolated.
06/07/25 16:13 Nasal Swab Influenza Types A & B (TOREY) - Final
Negative for Influenza A & B, NAAT
Negative results must be combined with clinical observations
and patient history.
Nucleic Acid Amplification test (NAAT)performed on the
[employer] platform.
CT A/P:
1. SEVERE ACUTE BILATERAL HYDROURETERONEPHROSIS with severe bilateral perinephric edema (possibly acute bilateral pyelonephritis).
2. SEVERE URINARY BLADDER OBSTRUCTION with distention of the urinary bladder with complex fluid, hemorrhage, or debris secondary to an obstructing mass (urothelial carcinoma) or scarring from recurrent urinary tract infections.
3. Previous TURP.
4. Severely enlarged prostate gland.
5. Severe calcific atherosclerotic plaque in the abdominal aorta.
6. Mild hepatosplenomegaly.
7. Moderate circumferential wall thickening in the rectum suggesting proctitis.
8. Small hiatal hernia.
9. 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
10. Mild cardiomegaly.
11. Previous CABG surgery.
CXR:
1. Moderate amount of airspace opacity in the basilar segments of the lower lobes which has increased since 05/09/2025. Diagnostic possibilities are (1) moderate bilateral lower lobe pneumonia or (2) subsegmental atelectasis (given mild to
moderately decreased bilateral lung volumes).
2. Mild enlargement of the cardiomediastinal silhouette.
3. Previous CABG surgery.
Sepsis due to acute UTI/pyelonephritis due to obstructive uropathy:
-with acute metabolic encephalopathy
-Enlarged prostate is causing obstructive uropathy, Montoya catheter placed in the ER
-trend leukocytosis and fever curve
-admission BCxs/UCx with Klebsiella, follow repeat blood cultures
-ID/Uro following
-cont CBI as per urology (as per discussion with RN and Uro will be intermittent today), ok to resume Eliquis as per Uro
-cont Rocephin as per ID
-CXR findings likely atelectasis (at this time PNA has been ruled out)
JESSICA and hyponatremia:
-likely due to sepsis and prerenal azotemia
-cont IVFs
Other problems:
Anemia of chronic disease: Hb stable (drop likely dilutational)
Essential HTN: cont Norvasc/Coreg
DM2: currently on Glipizide/Lantus/SSI/accuchecks
Permanent afib: cont Coreg, holding Eliquis with hematuria
CAD: cont Zetia and statin
Pt's and friend updated extensively at bedside.
DNR/apixaban
Total time spent on today's encounter was 50 minutes which included time spent in counseling the patient/family regarding diagnosis and treatment plan as listed above, goals of care, and symptom management. Case was discussed with nursing staff,
specialists, and care coordinators/case management. All labs and imaging personally reviewed by me. Remainder the time spent in detailed review of previous records, lab data, imaging, and other medical provider documentation.
Anticipated Discharge: > 48 hours
Subjective/Interval History
-
Date of Service: June 09, 2025
No new complaints. States he feels better overall.
Objective Data
-
Labs:
Laboratory Results
06/09/25
03:12
WBC 19.3 H
Hgb 8.6 L
Hct 24.9 L
Plt Count 245
Vital Signs:
Vital Signs
Temp Pulse Resp BP Pulse Ox
99.7 F 105 14 109/75 97
06/09/25 03:07 06/09/25 09:54 06/09/25 07:36 06/09/25 09:54 06/09/25 07:36
I&O
06/08/25 06/09/25 06/10/25
06:59 06:59 06:59
Intake Total 800 / 800
Output Total 950 / 950 500 / 500
Balance -150 / -150 -500 / -500
[2025-06-09 12:51] LABS: Glucose - Point of Care 374 mg/dl (70-99)
[2025-06-09] MEDS: NOVOLOG FLEXPEN-LOW RESISTANCE 5 UNITS SC ×2 (13:16→18:04)
[2025-06-09 13:53] LABS: Blood Urea Nitrogen 46 mg/dl (9-20); Calcium 8.0 mg/dl (8.4-10.2); Carbon Dioxide 23 mmol/L (22-30); Chloride 107 mmol/L (98-107); Estimated Creatinine Clearance 40 ml/min; Glucose 362 mg/dl (70-99); Potassium 4.3 mmol/L (3.5-5.1); Sodium 135 mmol/L (135-145); eGFR 53.17
--- NOTE | 2025-06-09 14:45 | PN.DE.MGMTRT ---
Insulin Management
- -
06/09/2025 Diabetes Management Consult
Patient admitted 06/07 from [facility] for weakness;diabetes management consult 06/09. Recently in for covid 05/09 to 05/16, then to [facility]. PMH covid, CAD, s/p CABG, afib, HTN, HLD, diabetes, uti's. Prior to admission was taking glipizide 2.5
daily, novolog ss AC, 16 units lantus @ HS and metformin 500 BID. On admission cr 1.8, eGFR 35.98.
Glucose range yesterday 327 fasting to 372 @ HS.
Dr. Thurston has increased lantus from 10 units to 15 units @ HS and started AC novolog 5 units with moderate corrective insulin. Will reduce moderate corrective to low corrective.
Will follow
Diabetes History
- -
Type of Diabetes: 2 requiring insulin
Pre-Admission Diabetes Regimen
06/09/25
13:29
Creatinine 1.3
Insulin Pump Settings
IP Diabetes Regimen
06/08/25 06/08/25 06/09/25
16:57 20:46 08:51
Glucose
POC Glucose 274 H 372 H 289 H
06/09/25 06/09/25
12:38 13:29
Glucose 362 H
POC Glucose 374 H
Patient Education
--- NOTE | 2025-06-09 15:59 | CM ---
Patient from [facility] with Dx Sepsis due to acute UTI/pyelonephritis due to obstructive uropathy, acute metabolic encephalopathy. Room air. Receiving IVF, IV Abx. Montoya - weaning CBI. Per nurse; forgetful, assist of 2/bedrest.
Messages with Dr Thurston; patient is not ready for PT/OT yet. He was still a little encephalopathic today. He will be here minimum 2 more days. Likely can order tomorrow.
Spoke with patient's Sirena; provided update that patient is not medically ready today to begin working with PT/OT per MD. is considering whether she wants patient to return to [facility] or go to another facility for rehab. Discussed
other local SNFs and provided [facility] ratings. Sirena plans on touring [facility] tomorrow.
Plan follow up with for SNF preferences.
[2025-06-09 17:24] LABS: Glucose - Point of Care 415 mg/dl (70-99)
[2025-06-09] MEDS: CRESTOR 20 MG PO (17:40)
[2025-06-09 17:55] LABS: Glucose 373 mg/dl (70-99)
[2025-06-09] MEDS: NOVOLOG FLEXPEN 5 UNITS SC (18:04)
[2025-06-09] MEDS: ZETIA 10 MG PO (19:52)
[2025-06-09] MEDS: ELIQUIS 5 MG PO (19:54)
[2025-06-09] MEDS: LANTUS 0.15 UNITS SC (21:33)
[2025-06-09 21:34] LABS: Glucose - Point of Care 393 mg/dl (70-99)
[2025-06-09] MEDS: MELATONIN 5 MG PO (22:27)
[2025-06-10] VITALS (12 sets, daily range): BP systolic 111–140; BP diastolic 57–86; PULSE 105; O2SAT 96; BMI 29.9
[2025-06-10] MEDS: LR 1000 IV ×2 (01:29→15:23)
[2025-06-10 03:44] LABS: Hematocrit 25.1 % (39.0-52.0); Hemoglobin 8.6 g/dL (13.0-18.0); Mean Corp Hgb Conc. 34.3 g/dL (33.0-37.0); Mean Corpuscular Volume 83.9 fL (80.0-94.0); Platelet Count 247 10^3/uL (130-400); Red Cell Dist. Width 14.4 % (11.5-14.5)
[2025-06-10 04:08] LABS: Blood Urea Nitrogen 46 mg/dl (9-20); Calcium 8.4 mg/dl (8.4-10.2); Carbon Dioxide 21 mmol/L (22-30); Chloride 109 mmol/L (98-107); Estimated Creatinine Clearance 37 ml/min; Glucose 316 mg/dl (70-99); Potassium 4.4 mmol/L (3.5-5.1); Sodium 136 mmol/L (135-145); eGFR 48.65
--- NOTE | 2025-06-10 04:30 | PTCARENOTE ---
Patient AAOx1-2, forgetful and can be confused at times. Room air sating at 96%. CBI running, urine is clear yellow. Bilateral heel foams replaced. LR running at 80 ml/hr. Assessment and vital signs as charted. Patient resting in bed with call mendez
in reach.
[2025-06-10] MEDS: DUONEB 3 ML INH ×3 (07:30→21:07)
[2025-06-10 08:15] LABS: Glucose - Point of Care 342 mg/dl (70-99)
--- NOTE | 2025-06-10 08:33 | W.PN.HOSP.TC ---
Today's Communication/Plan
-
see plan
Assessment / Plan
Assessment / Plan
Gen: NAD, Awake and alert
Eyes: EOMI, PERRLA, no scleral icterus.
Neck: supple.
CV: irreg/irreg, +S1/S2, no m/r/g.
Resp: CTAB anteriorly, no rales, wheezes, or rhonchi.
Abd: remains +BS, soft, NT, ND
Skin: No rashes.
Neuro: CN 2-12 intact, non-focal.
Psych: Normal mood and affect.
06/07/25 16:13 Blood/Venous Blood Culture - Preliminary
Klebsiella pneumoniae group
06/07/25 16:13 Blood/Venous Gram Stain - Preliminary
06/09/25 03:12 Blood/Venous Blood Culture - Preliminary
No Growth in 24 hours- Final report to follow
06/09/25 03:12 Blood/Venous Blood Culture - Preliminary
No Growth in 24 hours- Final report to follow
06/07/25 16:13 Blood/Venous Blood Culture - Preliminary
Positive culture in progress
06/07/25 16:13 Blood/Venous Gram Stain - Preliminary
06/08/25 03:26 Nose MRSA Screen - Final
No Methicillin Resistant Staphylococcus aureus isolated.
06/07/25 16:13 Nasal Swab Influenza Types A & B (TOREY) - Final
Negative for Influenza A & B, NAAT
Negative results must be combined with clinical observations
and patient history.
Nucleic Acid Amplification test (NAAT)performed on the
[employer] platform.
CT A/P:
1. SEVERE ACUTE BILATERAL HYDROURETERONEPHROSIS with severe bilateral perinephric edema (possibly acute bilateral pyelonephritis).
2. SEVERE URINARY BLADDER OBSTRUCTION with distention of the urinary bladder with complex fluid, hemorrhage, or debris secondary to an obstructing mass (urothelial carcinoma) or scarring from recurrent urinary tract infections.
3. Previous TURP.
4. Severely enlarged prostate gland.
5. Severe calcific atherosclerotic plaque in the abdominal aorta.
6. Mild hepatosplenomegaly.
7. Moderate circumferential wall thickening in the rectum suggesting proctitis.
8. Small hiatal hernia.
9. 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
10. Mild cardiomegaly.
11. Previous CABG surgery.
CXR:
1. Moderate amount of airspace opacity in the basilar segments of the lower lobes which has increased since 05/09/2025. Diagnostic possibilities are (1) moderate bilateral lower lobe pneumonia or (2) subsegmental atelectasis (given mild to
moderately decreased bilateral lung volumes).
2. Mild enlargement of the cardiomediastinal silhouette.
3. Previous CABG surgery.
Sepsis due to acute UTI/pyelonephritis due to obstructive uropathy:
-with acute metabolic encephalopathy
-Enlarged prostate is causing obstructive uropathy, Montoya catheter placed in the ER
-leukocytosis improving, now afebrile
-admission BCxs/UCx with Klebsiella, follow repeat BCxs (NGTD)
-ID/Uro following
-cont CBI as per urology (as per discussion with RN and Uro will be light today), ok to continue Eliquis as per Uro
-cont Rocephin as per ID. On discharge Cipro 500mg BID through 06/20/25.
-CXR findings likely atelectasis (at this time PNA has been ruled out)
JESSICA and hyponatremia:
-likely due to sepsis and prerenal azotemia
-cont IVFs
-c/s renal
-hyponatremia
DM2:
-uncontrolled
-Lantus and premeal Novolog increased
-SSI/accuchecks
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
Other problems:
Anemia of chronic disease: Hb stable (drop likely dilutational)
Essential HTN: cont Norvasc/Coreg
Permanent afib: cont Coreg/Eliquis
CAD: cont Zetia and statin
Pt's and friend updated extensively at bedside.
DNR/apixaban
Total time spent on today's encounter was 52 minutes which included time spent in counseling the patient/family regarding diagnosis and treatment plan as listed above, goals of care, and symptom management. Case was discussed with nursing staff,
specialists, and care coordinators/case management. All labs and imaging personally reviewed by me. Remainder the time spent in detailed review of previous records, lab data, imaging, and other medical provider documentation.
Anticipated Discharge: 24 - 48 hours
Subjective/Interval History
-
Date of Service: June 10, 2025
Objective Data
-
Labs:
Laboratory Results
06/10/25
03:00
WBC 16.7 H
Hgb 8.6 L
Hct 25.1 L
Plt Count 247
Sodium 136
Potassium 4.4
Chloride 109 H
Carbon Dioxide 21 L
BUN 46 H
Creatinine 1.4 H
Glucose 316 H
Calcium 8.4
Vital Signs:
Vital Signs
Temp Pulse Resp BP Pulse Ox
98.0 F 88 20 111/77 95
06/10/25 07:25 06/10/25 07:34 06/10/25 07:34 06/10/25 04:00 06/10/25 07:34
I&O
06/09/25 06/10/25 06/11/25
06:59 06:59 06:59
Output Total 500 / 500 3000 / 3000
Balance -500 / -500 -3000 / -3000
[2025-06-10] MEDS: NORVASC 7.5 MG PO (08:35)
[2025-06-10] MEDS: ELIQUIS 5 MG PO ×2 (08:35→20:16)
[2025-06-10] MEDS: COREG 25 MG PO ×2 (08:35→20:16)
[2025-06-10] MEDS: OCUVITE SOFTGEL 1 CAP PO ×2 (08:35→20:16)
[2025-06-10] MEDS: TESSALON PERLES 100 MG PO ×3 (08:35→21:57)
[2025-06-10] MEDS: VISBIOME 1 CAP PO (08:35)
[2025-06-10] MEDS: NOVOLOG FLEXPEN-LOW RESISTANCE 4 UNITS SC ×2 (08:44→13:08)
[2025-06-10] MEDS: NOVOLOG FLEXPEN 5 UNITS SC (08:44)
--- NOTE | 2025-06-10 09:05 | PN.DE.MGMTRT ---
Insulin Management
- -
06/10/2025 Diabetes Management Consult Follow up
Patient admitted 06/07 from [facility] for weakness;diabetes management consult 06/09. Found to have acute UTI/pyelonephritis, severe bilateral hydroureteronephrosis. Recently in for covid 05/09 to 05/16, then to [facility]. PMH covid, CAD, s/p
CABG, afib, HTN, HLD, diabetes, uti's. Prior to admission was taking glipizide 2.5 daily, novolog ss AC, 16 units lantus @ HS and metformin 500 BID. On admission cr 1.8, eGFR 35.98. A1C from previous admission 05/24/25 10.4%.
Patient is awake and alert but forgetful, not reliable source of information for diabetes care. is at bedside and very helpful. She is using the [employer] CGM to track glucose. Patient sees Dr. Nelson, endocrine for ongoing diabetes care.
Glucose range yesterday 289 fasting to 415, HS glucose 393.
06/10 Fasting glucose 342, Cr 1.4, eGFR 48.65. Will increase HS lantus to 20 units and AC novolog to 10 units with low corrective.
Discussed with nurse.
Will follow
Diabetes History
- -
Type of Diabetes: 2 requiring insulin
Pre-Admission Diabetes Regimen
06/09/25 06/10/25
13:29 03:00
Creatinine 1.3 1.4 H
Insulin Pump Settings
IP Diabetes Regimen
06/09/25 06/09/25 06/09/25
08:51 12:38 13:29
Glucose 362 H
POC Glucose 289 H 374 H
06/09/25 06/09/25 06/09/25
17:12 17:35 21:24
Glucose 373 H
POC Glucose 415 H 393 H
06/10/25 06/10/25
03:00 08:02
Glucose 316 H
POC Glucose 342 H
Patient Education
--- NOTE | 2025-06-10 09:44 | W.PN.ID1 ---
Date of Service
Date of Service: June 10, 2025
Today's Communication
Continue ceftriaxone.
Assessment / Plan
# Klebsiella Complicated UTI due to severe bladder outlet obstruction/clot retention
# Klebsiella Bacteremia from source
# Fever resolved
# Leukocytosis trending down
# sepsis
# hx BPH
- repeat Bcx's neg to date
- 06/05 Ucx Klebsiella.
- Continue ceftriaxone 2g IV q24 (d4)
- At time of discharge, transition to po cipro 500mg bid through 06/20/25.
- Trend wbc
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
DM type II
A-fib
CAD s/p CABG
HTN
Nephrolithiasis
BPH hx TURP
Appendectomy
Left total knee replacement
Chief Complaint
-: UTI and Bacteremia
Subjective / Review of Systems
Coughing while eating breakfast. I repositioned patient's head of bed.
Vital Signs / Physical Exam
Vital Signs
Vital Signs
Temp Pulse Resp BP Pulse Ox
98.0 F 94 20 133/86 95
06/10/25 07:25 06/10/25 08:35 06/10/25 07:34 06/10/25 08:35 06/10/25 07:34
Physical Exam
Constitutional: No Acute Distress and Comfortable
Cardiovascular: Regular Rate and S1/S2
Pulmonary: Rales (bibase)
Gastrointestinal: Soft, Non Tender and Non Distended
Genito-Urinary: Montoya and Clear Urine
Extremities: Negative Edema
Neurological: AO x 3
Objective Data
Lab Data
Lab Results
06/10/25 03:00
06/10/25 03:00
Estimated Creat Clear 37 ml/min 06/10/25 03:00
Lactic Acid 1.6 mmol/L (0.7-2.0) 06/07/25 15:38
Total Bilirubin 0.7 mg/dl (0.2-1.3) 06/07/25 15:38
AST 29 U/L (17-59) 06/07/25 15:38
ALT 32 U/L (0-50) 06/07/25 15:38
Alkaline Phosphatase 89 U/L (38-126) 06/07/25 15:38
Most recent labs reviewed.
Micro Results:
06/07/25 16:13 Blood Culture - Preliminary
Blood/Venous Klebsiella pneumoniae
Gram Stain - Preliminary
06/07/25 16:13 Blood Culture - Final
Blood/Venous Klebsiella pneumoniae
Gram Stain - Final
06/09/25 03:12 Blood Culture - Preliminary
Blood/Venous No Growth in 24 hours- Final report to follow
06/09/25 03:12 Blood Culture - Preliminary
Blood/Venous No Growth in 24 hours- Final report to follow
06/08/25 03:26 MRSA Screen - Final
Nose No Methicillin Resistant Staphylococcus aureus isolated.
06/07/25 16:13 Influenza Types A & B (TOREY) - Final
Nasal Swab Negative for Influenza A & B, NAAT
Negative results must be combined with clinical observations
and patient history.
Nucleic Acid Amplification test (NAAT)performed on the
[employer] platform.
06/07/25 CT a/p: SEVERE ACUTE BILATERAL HYDROURETERONEPHROSIS with severe bilateral perinephric edema (possibly acute bilateral pyelonephritis). SEVERE URINARY BLADDER OBSTRUCTION with distention of the urinary bladder with complex fluid,
hemorrhage, or debris secondary to an obstructing mass.
06/07/25 CXR: Moderate amount of airspace opacity in the basilar segments of the lower lobes which has increased since 05/09/2025. Diagnostic possibilities are (1) moderate bilateral lower lobe pneumonia or (2) subsegmental atelectasis (given mild to
moderately decreased bilateral lung volumes).
[2025-06-10] MEDS: ROCEPHIN 2000 MG IV (10:55)
[2025-06-10] MEDS: STERILE WATER FOR INJECTION 20 ML IV (10:55)
[2025-06-10] MEDS: FLUSH (NSS) 1 FLUSH IV ×3 (10:56→10:57)
[2025-06-10 12:56] LABS: Glucose - Point of Care 319 mg/dl (70-99)
[2025-06-10] MEDS: NOVOLOG FLEXPEN 10 UNITS SC ×2 (13:08→18:16)
--- NOTE | 2025-06-10 15:11 | PTCARENOTE ---
Rec'd pt this AM. Pt confused intermittently. spouse at bedside. urine output clear, yellow. Pt now M/S, transferred to [address] [place] [address], report given to ELY Salas
--- NOTE | 2025-06-10 16:40 | W.CON.NEPH ---
Consultation
-
Date/Time Consultation Requested: 06/10/2025 3 PM
Date/Time Consultation Performed: 06/10/2025 4 PM
Requesting Provider: Dr. Thurston
Performing Provider: Dr. Farley
Reason for Consultation: JESSICA
Medical History
-
Chief Complaint: JESSICA
History of Present Illness:
This is an 85-year-old gentleman who resides in a halfway and was admitted 3 days ago with progressive weakness and confusion. He had a recent hospitalization for COVID after which she was discharged to rehab. He had several bouts of urinary
tract infection during that time. Recently with a mental status change she also had hallucinations and poor appetite. In the emergency room he was febrile with leukocytosis. Gross hematuria was noted with large clot removal with hand irrigation.
CT scan revealed bilateral severe hydronephrosis. Montoya catheter was placed by urology and CBI started. Creatinine was elevated at 1.8 representing acute kidney injury from his baseline of 0.9 earlier this month. He has a mild metabolic acidosis.
We are asked to assist with management of his renal issues.
Past Medical History
DM type II
A-fib
CAD s/p CABG
HTN
Nephrolithiasis
BPH hx TURP
Appendectomy
Left total knee replacement
Social History
Tobacco: Non-Smoker
Alcohol: None
Family History
Family History: Not Pertinent
Allergies / Home Medications
Allergy/AdvReac Type Severity Reaction Status Date / Time
lisinopril Allergy COUGH Verified 06/07/25 15:35
�Medication �Instructions �Recorded �Confirmed �Type
ascorbic acid (vitamin C) 250 mg 250 mg PO DAILY Supplement 12/06/24 06/07/25 History
tablet (Vitamin C)
carvedilol 25 mg tablet 25 mg PO BID Blood Pressure 12/06/24 06/07/25 History
cholecalciferol (vitamin D3) 25 25 mcg PO QPM Supplement 12/06/24 06/07/25 History
mcg (1,000 unit) capsule (Vitamin
D3)
cyanocobalamin (vitamin B-12) 500 1,000 mcg PO DAILY Supplement 12/06/24 06/07/25 History
mcg tablet
ezetimibe 10 mg tablet (Zetia) 10 mg PO HS High Cholesterol 12/06/24 06/07/25 History
glipizide 2.5 mg tablet, extended 2.5 mg PO DAILY Diabetes 12/06/24 06/07/25 History
release 24 hr
insulin glargine 100 unit/mL 16 unit SC HS Diabetes 12/06/24 06/07/25 History
subcutaneous solution (Lantus
U-100 Insulin)
metformin 500 mg tablet 500 mg PO BID Diabetes 12/06/24 06/07/25 History
turmeric 400 mg capsule 400 mg PO HS Supplement 12/06/24 06/07/25 History
vit C 250 mg-vit E 90 mg-zinc 40 1 tab PO BID Supplement 12/06/24 06/07/25 History
mg-copper 1 [id number]
capsule (PreserVision AREDS-2)
losartan 50 mg tablet 100 mg (2 x 50 mg) PO HS Blood 12/09/24 06/07/25 Rx
pressure 1 month #60 tabs
amlodipine 5 mg tablet 7.5 mg PO DAILY Blood pressure 05/09/25 06/07/25 History
rosuvastatin 10 mg tablet 20 mg PO QPM High cholesterol 05/09/25 06/07/25 History
acetaminophen 325 mg tablet 650 mg (2 x 325 mg) PO Q4HPRN PRN 05/15/25 06/07/25 Rx
fever >/= 100.4F, HERNANDEZ,mild pain #0
tabs
albuterol sulfate 90 mcg/actuation 2 puff inhalation R Q4HPRN PRN 05/15/25 06/07/25 Rx
aerosol inhaler shortness of breath or wheeze #0
grams
benzonatate 100 mg capsule 100 mg PO TID #20 caps 05/15/25 06/07/25 Rx
dextromethorphan-guaifenesin 10 10 ml PO Q4HPRN PRN cough 10 days 05/15/25 06/07/25 Rx
mg-100 mg/5 mL oral syrup #0 mL
ipratropium 0.5 mg-albuterol 3 mg 3 ml inhalation R Q4HPRN PRN 05/15/25 06/07/25 Rx
(2.5 mg base)/3 mL nebulization Shortness of breath/wheezing #0 mL
soln
loperamide 2 mg capsule 2 mg PO Q6HPRN PRN diarrhea #0 caps 05/16/25 06/07/25 Rx
Lactobac no.2-Bifidobac no.1-S. 1 cap PO DAILY Supplement 06/07/25 06/07/25 History
thermo 112.5 billion cell capsule
(Visbiome)
apixaban 5 mg tablet (Eliquis) 5 mg PO BID Blood Clot 06/07/25 06/07/25 History
Prevention/Tx
bisacodyl 10 mg rectal suppository 10 mg CA DAILYPRN PRN if no bm by 06/07/25 06/07/25 History
(Dulcolax (bisacodyl)) 6th day
coQ10 (ubiquinol) 100 mg capsule 100 mg PO HS Supplement 06/07/25 06/07/25 History
cranberry 500 mg capsule 500 mg PO DAILY Supplement 06/07/25 06/07/25 History
guaifenesin 400 mg tablet 400 mg PO Q6HPRN PRN cough 06/07/25 06/07/25 History
insulin aspart U-100 100 unit/mL 1 sliding scale dose SC AC Diabetes 06/07/25 06/07/25 History
(3 mL) subcutaneous pen (Novolog
FlexPen U-100 Insulin aspart)
ipratropium 0.5 mg-albuterol 3 mg 3 ml inhalation R TID 06/07/25 06/07/25 History
(2.5 mg base)/3 mL nebulization Lung/Breathing Issues
soln
magnesium hydroxide 400 mg/5 mL 2,400 mg PO [id number] PRN if no bm 06/07/25 06/07/25 History
oral suspension (Milk of Magnesia) by 3rd day give on day 4
ondansetron HCl 4 mg tablet 4 mg PO Q6HPRN PRN nausea 06/07/25 06/07/25 History
therapeutic multivitamin 1 tab PO DAILY Supplement 06/07/25 06/07/25 History
vitamin E 100 unit tablet 100 unit PO HS Supplement 06/07/25 06/07/25 History
Review of Systems
-
No chest pain or shortness of breath
All other systems: Negative unless noted
Physical Exam
Vital Signs
Vital Signs
Temp Pulse Resp BP Pulse Ox
98.4 F 89 17 130/67 95
06/10/25 15:30 06/10/25 15:30 06/10/25 14:26 06/10/25 15:30 06/10/25 15:30
Lab Results
WBC 16.7 10^3/uL (4.8-10.8) H 06/10/25 03:00
RBC 2.99 10^6/uL (4.70-6.10) L 06/10/25 03:00
Hgb 8.6 g/dL (13.0-18.0) L 06/10/25 03:00
Hct 25.1 % (39.0-52.0) L 06/10/25 03:00
Plt Count 247 10^3/uL (130-400) 06/10/25 03:00
Sodium 136 mmol/L (135-145) 06/10/25 03:00
Potassium 4.4 mmol/L (3.5-5.1) 06/10/25 03:00
Chloride 109 mmol/L (98-107) H 06/10/25 03:00
Carbon Dioxide 21 mmol/L (22-30) L 06/10/25 03:00
BUN 46 mg/dl (9-20) H 06/10/25 03:00
Creatinine 1.4 mg/dL (0.7-1.3) H 06/10/25 03:00
eGFR 48.65 06/10/25 03:00
Glucose 316 mg/dl (70-99) H 06/10/25 03:00
Calcium 8.4 mg/dl (8.4-10.2) 06/10/25 03:00
Albumin 3.3 g/dl (3.5-5.0) L 06/07/25 15:38
Laboratory Tests
06/01/25 06/07/25
06:00 15:38
Sodium 133 L
Creatinine 0.9 1.8 H
Urine Occult Blood 4+ A
Ur Leukocyte Esterase 3+ A
Urine WBC 80-90 A
Urine Bacteria Many A
Urine Albumin 3+ A
CT abdomen pelvis without contrast on 06/07/2025
IMPRESSION:
1. SEVERE ACUTE BILATERAL HYDROURETERONEPHROSIS with severe bilateral perinephric edema (possibly acute bilateral pyelonephritis).
2. SEVERE URINARY BLADDER OBSTRUCTION with distention of the urinary bladder with complex fluid, hemorrhage, or debris secondary to an obstructing mass (urothelial carcinoma) or scarring from recurrent urinary tract infections.
3. Previous TURP.
4. Severely enlarged prostate gland.
5. Severe calcific atherosclerotic plaque in the abdominal aorta.
6. Mild hepatosplenomegaly.
7. Moderate circumferential wall thickening in the rectum suggesting proctitis.
8. Small hiatal hernia.
9. 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
10. Mild cardiomegaly.
11. Previous CABG surgery.
Physical Exam
Patient is awake alert oriented and in no distress. Mood and affect were pleasant, insight and judgment were good. Pupils are equal round and reactive to light, extraocular movements are intact, sclera were anicteric. Hearing was normal, ears and
nose are intact. Oropharynx was elias but dry r. Neck was supple with trachea midline and no thyromegaly. Heart was regular rate and rhythm without rubs. Lower extremities without edema. Lungs were clear to auscultation bilaterally and with normal
excursion. Abdomen was soft, nontender, with normal active bowel sounds, and no hepatosplenomegaly. Skin was without rash and with normal turgor.
Data Reviewed
-
Radiology: Image Personally Visualized and interpreted (Chest x-ray 06/07/2025 by my reading cardiomegaly decreased lung volume)
CT Scan: Report Reviewed by me
Medical Tests (Nuc Med, Echo etc): Image Personally Visualized and interpreted (EKG 06/07/2025 by reading A-fib a flutter with a Almanza C)
Labs: Labs Reviewed by me
Old Records: Reviewed
Assessment/Plan
-
Assessment
JESSICA
Metabolic acidosis
Hyponatremia
Bilateral hydronephrosis
Bladder outlet obstruction
Hemorrhagic cystitis
Diabetes mellitus type 2
Atrial fibrillation atrial flutter
Coronary disease bypass graft
Hypertension
Plan
Continue IV fluids, lactated Ringer's particularly for poor oral intake
Follow BMP
CBI per urology
Sodium resolved with IV fluids and relief of obstruction. Do not need to match polyuria currently
Off losartan and metformin for now
[2025-06-10 17:42] LABS: Glucose - Point of Care 286 mg/dl (70-99)
[2025-06-10] MEDS: NOVOLOG FLEXPEN-LOW RESISTANCE 3 UNITS SC (18:17)
[2025-06-10] MEDS: CRESTOR PO (18:18)
[2025-06-10] MEDS: ZETIA 10 MG PO (21:57)
[2025-06-10] MEDS: LANTUS 0.2 UNITS SC (21:58)
[2025-06-10 22:06] LABS: Glucose - Point of Care 222 mg/dl (70-99)
[2025-06-11] MEDS: LR 1000 IV ×2 (04:04→18:41)
[2025-06-11 06:00] VITALS: BMI 29.7
[2025-06-11 07:10] VITALS: BP 146/82
[2025-06-11 07:26] LABS: Hematocrit 26.6 % (39.0-52.0); Hemoglobin 8.9 g/dL (13.0-18.0); Mean Corp Hgb Conc. 33.5 g/dL (33.0-37.0); Mean Corpuscular Volume 85.5 fL (80.0-94.0); Platelet Count 281 10^3/uL (130-400); Red Cell Dist. Width 14.3 % (11.5-14.5)
--- NOTE | 2025-06-11 07:37 | PN.DE.MGMTRT ---
Insulin Management
- -
06/11/2025: Diabetes Management Follow up
Patient admitted 06/07 from [facility] for weakness;diabetes management consult 06/09. Found to have acute UTI/pyelonephritis, severe bilateral hydroureteronephrosis. Recently in for COVID 05/09 to 05/16, then to [facility]. PMH: COVID, CAD, s/p
CABG, afib, HTN, HLD, diabetes, UTIs. Prior to admission was taking glipizide 2.5 daily, NovoLog ss AC, 16 units Lantus @ HS and metformin 500 BID. On admission cr 1.8, eGFR 35.98. A1C from previous admission 05/24/25 10.4%.
Patient is awake and alert but forgetful, not reliable source of information for diabetes care. is at bedside and very helpful. She is using the [employer] CGM to track glucose. Patient sees Dr. Nelson, endocrine for ongoing diabetes care. Cr
1.2, eGFR 58.53 today.
Glucose range yesterday 286 to 342, required 3-4 units of additional corrective insulin with meals. HS glucose 222, Fasting 207 V this AM
Will increase HS Lantus to 24 units and AC NovoLog to 14 units with low corrective.
Will cont to follow. Discussed with nurse and pt's at bedside.
Diabetes History
- -
Type of Diabetes: 2 requiring insulin
Pre-Admission Diabetes Regimen
Insulin Pump Settings
IP Diabetes Regimen
06/10/25 06/10/25 06/10/25
08:02 12:44 17:40
POC Glucose 342 H 319 H 286 H
06/10/25
21:59
POC Glucose 222 H
Meal type: Dinner
Amount consumed: 100%
Patient Education
[2025-06-11 07:47] LABS: Blood Urea Nitrogen 39 mg/dl (9-20); Calcium 8.5 mg/dl (8.4-10.2); Carbon Dioxide 24 mmol/L (22-30); Chloride 107 mmol/L (98-107); Estimated Creatinine Clearance 43 ml/min; Glucose 207 mg/dl (70-99); Potassium 4.2 mmol/L (3.5-5.1); Sodium 136 mmol/L (135-145); eGFR 58.53
[2025-06-11] MEDS: DUONEB 3 ML INH ×3 (08:18→19:58)
[2025-06-11 08:45] LABS: Glucose - Point of Care 236 mg/dl (70-99)
[2025-06-11] MEDS: NOVOLOG FLEXPEN-LOW RESISTANCE 2 UNITS SC (09:23)
[2025-06-11] MEDS: OCUVITE SOFTGEL 1 CAP PO ×2 (09:23→20:39)
[2025-06-11] MEDS: COREG 25 MG PO ×2 (09:23→20:39)
[2025-06-11] MEDS: VISBIOME 1 CAP PO (09:24)
[2025-06-11] MEDS: TESSALON PERLES 100 MG PO ×3 (09:24→20:39)
[2025-06-11] MEDS: NORVASC 7.5 MG PO (09:24)
[2025-06-11] MEDS: ELIQUIS 5 MG PO ×2 (09:24→20:39)
[2025-06-11] MEDS: ROCEPHIN 2000 MG IV (09:24)
[2025-06-11] MEDS: STERILE WATER FOR INJECTION 20 ML IV (09:25)
[2025-06-11] MEDS: FLUSH (NSS) 1 FLUSH IV ×2 (09:59→10:05)
--- NOTE | 2025-06-11 10:03 | W.PN.ID1 ---
Date of Service
Date of Service: June 11, 2025
Today's Communication
- Continue ceftriaxone 2g IV q24 (d5)
Assessment / Plan
# Klebsiella Complicated UTI due to severe bladder outlet obstruction/clot retention
# Klebsiella Bacteremia from source
# Fever resolved
# Leukocytosis trending down
# sepsis
# hx BPH
- repeat Bcx's neg to date
- 06/05 Ucx Klebsiella.
- Continue ceftriaxone 2g IV q24 (d5)
- At time of discharge, transition to po cipro 500mg bid through 06/20/25.
- Trend wbc
# Conditions [employer]
DM type II
A-fib
CAD s/p CABG
HTN
Nephrolithiasis
BPH hx TURP
Appendectomy
Left total knee replacement
Chief Complaint
-: UTI and Bacteremia
Subjective / Review of Systems
Per , pt with hallucination last night.
Vital Signs / Physical Exam
Vital Signs
Vital Signs
Temp Pulse Resp BP Pulse Ox
98.1 F 98 20 146/82 96
06/11/25 07:10 06/11/25 09:24 06/11/25 08:20 06/11/25 09:24 06/11/25 07:10
Physical Exam
Constitutional: No Acute Distress and Comfortable
Cardiovascular: Regular Rate and S1/S2
Pulmonary: Rales (bibase)
Gastrointestinal: Soft, Non Tender and Non Distended
Genito-Urinary: Montoya and Clear Urine
Extremities: Negative Edema
Neurological: AO x 3
Objective Data
Lab Data
Lab Results
06/11/25 07:06
06/11/25 07:06
Estimated Creat Clear 43 ml/min 06/11/25 07:06
Lactic Acid 1.6 mmol/L (0.7-2.0) 06/07/25 15:38
Total Bilirubin 0.7 mg/dl (0.2-1.3) 06/07/25 15:38
AST 29 U/L (17-59) 06/07/25 15:38
ALT 32 U/L (0-50) 06/07/25 15:38
Alkaline Phosphatase 89 U/L (38-126) 06/07/25 15:38
Most recent labs reviewed.
Micro Results:
06/09/25 03:12 Blood Culture - Preliminary
Blood/Venous No Growth in 48 hours- Final report to follow
06/09/25 03:12 Blood Culture - Preliminary
Blood/Venous No Growth in 48 hours- Final report to follow
06/07/25 16:13 Blood Culture - Preliminary
Blood/Venous Klebsiella pneumoniae
Gram Stain - Preliminary
06/07/25 16:13 Blood Culture - Final
Blood/Venous Klebsiella pneumoniae
Gram Stain - Final
06/08/25 03:26 MRSA Screen - Final
Nose No Methicillin Resistant Staphylococcus aureus isolated.
06/07/25 16:13 Influenza Types A & B (TOREY) - Final
Nasal Swab Negative for Influenza A & B, NAAT
Negative results must be combined with clinical observations
and patient history.
Nucleic Acid Amplification test (NAAT)performed on the
[employer] platform.
06/07/25 CT a/p: SEVERE ACUTE BILATERAL HYDROURETERONEPHROSIS with severe bilateral perinephric edema (possibly acute bilateral pyelonephritis). SEVERE URINARY BLADDER OBSTRUCTION with distention of the urinary bladder with complex fluid,
hemorrhage, or debris secondary to an obstructing mass.
06/07/25 CXR: Moderate amount of airspace opacity in the basilar segments of the lower lobes which has increased since 05/09/2025. Diagnostic possibilities are (1) moderate bilateral lower lobe pneumonia or (2) subsegmental atelectasis (given mild to
moderately decreased bilateral lung volumes).
[2025-06-11] MEDS: NOVOLOG FLEXPEN SC (10:21)
--- NOTE | 2025-06-11 10:37 | W.PN.HOSP.TC ---
Today's Communication/Plan
-
see plan
Assessment / Plan
Assessment / Plan
Gen: NAD, Awake and alert
Eyes: EOMI, PERRLA, no scleral icterus.
Neck: supple.
CV: remains irreg/irreg, +S1/S2, no m/r/g.
Resp: remains CTAB anteriorly, no rales, wheezes, or rhonchi.
Abd: +BS, soft, tenderness to palpation in umbilcal hernia which is soft, ND
Skin: No rashes.
Neuro: CN 2-12 intact, non-focal.
Psych: Normal mood and affect.
06/09/25 03:12 Blood/Venous Blood Culture - Preliminary
No Growth in 48 hours- Final report to follow
06/09/25 03:12 Blood/Venous Blood Culture - Preliminary
No Growth in 48 hours- Final report to follow
06/07/25 16:13 Blood/Venous Blood Culture - Preliminary
Klebsiella pneumoniae
06/07/25 16:13 Blood/Venous Gram Stain - Preliminary
06/07/25 16:13 Blood/Venous Blood Culture - Final
Klebsiella pneumoniae
06/07/25 16:13 Blood/Venous Gram Stain - Final
06/08/25 03:26 Nose MRSA Screen - Final
No Methicillin Resistant Staphylococcus aureus isolated.
06/07/25 16:13 Nasal Swab Influenza Types A & B (TOREY) - Final
Negative for Influenza A & B, NAAT
Negative results must be combined with clinical observations
and patient history.
Nucleic Acid Amplification test (NAAT)performed on the
[employer] platform.
CT A/P:
1. SEVERE ACUTE BILATERAL HYDROURETERONEPHROSIS with severe bilateral perinephric edema (possibly acute bilateral pyelonephritis).
2. SEVERE URINARY BLADDER OBSTRUCTION with distention of the urinary bladder with complex fluid, hemorrhage, or debris secondary to an obstructing mass (urothelial carcinoma) or scarring from recurrent urinary tract infections.
3. Previous TURP.
4. Severely enlarged prostate gland.
5. Severe calcific atherosclerotic plaque in the abdominal aorta.
6. Mild hepatosplenomegaly.
7. Moderate circumferential wall thickening in the rectum suggesting proctitis.
8. Small hiatal hernia.
9. 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
10. Mild cardiomegaly.
11. Previous CABG surgery.
CXR:
1. Moderate amount of airspace opacity in the basilar segments of the lower lobes which has increased since 05/09/2025. Diagnostic possibilities are (1) moderate bilateral lower lobe pneumonia or (2) subsegmental atelectasis (given mild to
moderately decreased bilateral lung volumes).
2. Mild enlargement of the cardiomediastinal silhouette.
3. Previous CABG surgery.
Sepsis due to acute UTI/pyelonephritis due to obstructive uropathy:
-with acute metabolic encephalopathy, now with hospital acquired delirium
-Enlarged prostate is causing obstructive uropathy, Montoya catheter placed in the ER
-leukocytosis improved but remains 16, now afebrile
-admission BCxs/UCx with Klebsiella, follow repeat BCxs (NGTD)
-ID/Uro following
-cont CBI as per urology, ok to continue Eliquis as per Uro, on current hematuria
-cont Rocephin as per ID. On discharge Cipro 500mg BID through 06/20/25.
-CXR findings likely atelectasis (at this time PNA has been ruled out)
JESSICA and hyponatremia:
-likely due to sepsis and prerenal azotemia
-Cr now 1.2, JESSICA has resolved
-cont IVFs for now
-renal following
DM2:
-uncontrolled
-Lantus and premeal Novolog increased
-SSI/accuchecks
-diabetes TUBE CUTTER following
Other problems:
Hyponatremia, resolved
Anemia of chronic disease: Hb stable (drop likely dilational)
Essential HTN: cont Norvasc/Coreg
Permanent afib: cont Coreg/Eliquis
CAD: cont Zetia and statin
DNR/apixaban
RN updated.
Dispo: Will discuss timing of d/c with ID/Uro. Hopefully d/c can be today.
Anticipated Discharge: Within 24 hours
Subjective/Interval History
-
Date of Service: June 11, 2025
Pt confused. Does not offer new complaints.
Objective Data
-
Labs:
Laboratory Results
06/11/25
07:06
WBC 16.1 H
Hgb 8.9 L
Hct 26.6 L
Plt Count 281
Sodium 136
Potassium 4.2
Chloride 107
Carbon Dioxide 24
BUN 39 H
Creatinine 1.2
Glucose 207 H
Calcium 8.5
Vital Signs:
Vital Signs
Temp Pulse Resp BP Pulse Ox
98.1 F 98 20 146/82 96
06/11/25 07:10 06/11/25 09:24 06/11/25 08:20 06/11/25 09:24 06/11/25 07:10
I&O
06/10/25 06/11/25 06/12/25
06:59 06:59 06:59
Intake Total 480 / 480
Output Total 3000 / 3000 4600 / 4600
Balance -3000 / -3000 -4120 / -4120
[2025-06-11 11:50] LABS: Glucose - Point of Care 315 mg/dl (70-99)
[2025-06-11] MEDS: NOVOLOG FLEXPEN 14 UNITS SC ×2 (11:57→16:44)
[2025-06-11] MEDS: NOVOLOG FLEXPEN-LOW RESISTANCE 4 UNITS SC (11:58)
--- NOTE | 2025-06-11 13:59 | CM ---
Addendum entered by Vipul Morales 06/11/25 16:28:
Per SURYA Adam, pt's spouse left a message to her that [facility].
A referral to [facility] SNF made. Awaiting for determination.
Original Note:
CM following re: discharge planning.
Reviewed pt's chart, met with pt and spoke to pt's spouse over the phone to updated on discharge plan progress.
PT and OT evaluations noted - SNF level of care recommended.
CM spoke to pt's spouse and she stated she is not sure whether or not she will allow to sent her back to [facility] and she stated she just arrived to tour [facility]'s home SNF and she will let me know of the outcomes of her tour. Pt's spouse
requested not to send any referrals till she has a preferred SNF.
D/C plan: preferred SNF. Pt's spouse has a list of SNFs and she is touring them.
CM will follow to assist pt with discharge to a preferred SNF.
--- NOTE | 2025-06-11 14:58 | W.PN.NEPH.PH ---
Today's Communication / Plan
-
wean off IVF once po intake is appropriate
Assessment/Plan
-
Assessment
JESSICA
Metabolic acidosis
Hyponatremia
Bilateral hydronephrosis
Bladder outlet obstruction
Hemorrhagic cystitis
Diabetes mellitus type 2
Atrial fibrillation atrial flutter
Coronary disease bypass graft
Hypertension
Plan
JESSICA-resolving cr 1.2
possible diuretics phase of post obst
on IVF till po intake improved
CBI per urology
ok to resume losartan and metformin if needed
will s/o, call with ?s
-
-
Date of Service: June 11, 2025
CC / HPI / ROS
-
Chief Complaint:
JESSICA
History of Present Illness:
cr better at 1.2
BPs table
no fever, polyuric with CBI
WBC improving to 16k
Review of Systems:
no cp or sob
mild abd pain improving
no n./v
Labs
-
Labs:
WBC 16.1 10^3/uL (4.8-10.8) H 06/11/25 07:06
RBC 3.11 10^6/uL (4.70-6.10) L 06/11/25 07:06
Hgb 8.9 g/dL (13.0-18.0) L 06/11/25 07:06
Hct 26.6 % (39.0-52.0) L 06/11/25 07:06
Plt Count 281 10^3/uL (130-400) 06/11/25 07:06
Sodium 136 mmol/L (135-145) 06/11/25 07:06
Potassium 4.2 mmol/L (3.5-5.1) 06/11/25 07:06
Chloride 107 mmol/L (98-107) 06/11/25 07:06
Carbon Dioxide 24 mmol/L (22-30) 06/11/25 07:06
BUN 39 mg/dl (9-20) H 06/11/25 07:06
Creatinine 1.2 mg/dL (0.7-1.3) 06/11/25 07:06
eGFR 58.53 06/11/25 07:06
Glucose 207 mg/dl (70-99) H 06/11/25 07:06
Calcium 8.5 mg/dl (8.4-10.2) 06/11/25 07:06
Albumin 3.3 g/dl (3.5-5.0) L 06/07/25 15:38
Physical Exam
-
Vital Signs:
Vital Signs
Temp Pulse Resp BP Pulse Ox
98.1 F 88 16 146/82 96
06/11/25 07:10 06/11/25 13:52 06/11/25 13:52 06/11/25 09:24 06/11/25 07:10
Cardiovascular:: Regular rate and rhythm
Respiratory:: Bilateral: CTA (anteriorly)
Lung Excursion:: Normal
Abdomen:: Nontender and Soft
Extremity Edema:: None: Bilateral:
Montoya Catheter: Yes
[2025-06-11 15:10] VITALS: BP 128/63
[2025-06-11 16:42] LABS: Glucose - Point of Care 261 mg/dl (70-99)
[2025-06-11] MEDS: NOVOLOG FLEXPEN-LOW RESISTANCE 3 UNITS SC (16:44)
[2025-06-11] MEDS: CRESTOR 20 MG PO (17:36)
[2025-06-11] MEDS: TYLENOL 650 MG PO ×2 (17:42→22:57)
--- NOTE | 2025-06-11 19:17 | W.PN.URO.CBU ---
Today's Communication / Plan
-
Maintain Montoya catheter today
Voiding trial in AM (Sat 06/12) if urine remains clear
Bladder scans q6hrs - if PVRs >500, replacement of catheter and outpatient VT
F/U as outpatient for cystoscopy + VUDS
Assessment / Plan
-
Klebsiella urosepsis + bacteremia
Acute urinary retention
Bilateral hydroureteronephrosis
JESSICA
BPH s/p TURP (>5 yrs ago @[facility])
Urine clear in tubing.
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
Will need cystoscopy and urodynamics study as outpatient
Diagnosis
-
Date of Service: June 11, 2025
-
Patient Diagnosis:
Klebsiella urosepsis + bacteremia
Acute urinary retention
Bilateral hydroureteronephrosis
JESSICA
BPH s/p TURP (>5 yrs ago @[facility])
Subjective
-
More alert today.
Urine clear in tubing (CBI clamped >24 hrs).
Objective
-
Vital Signs
Temp Pulse Resp BP Pulse Ox
97.9 F 84 16 128/63 94
06/11/25 15:10 06/11/25 15:10 06/11/25 15:10 06/11/25 15:10 06/11/25 15:10
Intake and Output
06/10/25 06/11/25 06/12/25
06:59 06:59 06:59
Intake Total 480 / 480 1380 / 1380
Output Total 3000 / 3000 4600 / 4600 3900 / 3900
Balance -3000 / -3000 -4120 / -4120 -2520 / -2520
Intake:
Oral fluids 480 / 480 420 / 420
IV fluids (Total) 960 / 960
Output:
True Urine Output from CBI 3000 / 3000 4600 / 4600 3900 / 3900
Other:
Number of unmeasured liquid
stools
Rectum 1
Laboratory Results
06/11/25 07:06
06/11/25 07:06
Physical Exam
-
General - well developed, well nourished, no acute distress
Abdomen - soft, non-tender
- 3-way catheter w/ clear yellow UOP
Skin - warm & dry with no rash
Neuro - AOx3, no motor deficits
Extremities - no clubbing, no cyanosis, no edema
Counseling
-
D/w patient and spouse (Sirena)
[2025-06-11] MEDS: ZETIA 10 MG PO (20:39)
[2025-06-11 21:48] LABS: Glucose - Point of Care 188 mg/dl (70-99)
[2025-06-11] MEDS: LANTUS 0.24 UNITS SC (22:03)
[2025-06-11 23:10] VITALS: BP 124/73
[2025-06-12] MEDS: DILAUDID 0.25 MG IV (01:07)
[2025-06-12 03:25] LABS: Glucose - Point of Care 198 mg/dl (70-99)
[2025-06-12 06:00] VITALS: BMI 27.7
[2025-06-12] MEDS: LR IV (06:34)
[2025-06-12 07:00] LABS: Hematocrit 26.5 % (39.0-52.0); Hemoglobin 8.9 g/dL (13.0-18.0); Mean Corp Hgb Conc. 33.6 g/dL (33.0-37.0); Mean Corpuscular Volume 85.5 fL (80.0-94.0); Platelet Count 309 10^3/uL (130-400); Red Cell Dist. Width 14.4 % (11.5-14.5)
[2025-06-12 07:05] VITALS: BP 140/76
[2025-06-12 07:06] VITALS: BMI 30.9
[2025-06-12 07:10] LABS: Glucose - Point of Care 284 mg/dl (70-99)
[2025-06-12 07:28] LABS: Blood Urea Nitrogen 32 mg/dl (9-20); Calcium 8.5 mg/dl (8.4-10.2); Carbon Dioxide 26 mmol/L (22-30); Chloride 103 mmol/L (98-107); Estimated Creatinine Clearance 59 ml/min; Glucose 237 mg/dl (70-99); Potassium 3.8 mmol/L (3.5-5.1); Sodium 138 mmol/L (135-145); eGFR > 60.00
[2025-06-12] MEDS: DUONEB 3 ML INH ×2 (07:43→13:49)
--- NOTE | 2025-06-12 07:58 | W.PN.ID1 ---
Date of Service
Date of Service: June 12, 2025
Today's Communication
- Continue ceftriaxone 2g IV q24 (d6)
- At time of discharge, transition to po cipro 500mg bid through 06/20/25.
Assessment / Plan
# Klebsiella Complicated UTI due to severe bladder outlet obstruction/clot retention
# Klebsiella Bacteremia from source
# Fever resolved
# Leukocytosis resolving
# hx BPH
- repeat Bcx's neg to date
- 06/05 Ucx Klebsiella.
- Voiding trial today per Urology
- Continue ceftriaxone 2g IV q24 (d6)
- At time of discharge, transition to po cipro 500mg bid through 06/20/25.
- Trend wbc
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
DM type II
A-fib
CAD s/p CABG
HTN
Nephrolithiasis
BPH hx TURP
Appendectomy
Left total knee replacement
Chief Complaint
-: UTI and Bacteremia
Subjective / Review of Systems
No new complaints. Denies hallucination.
Vital Signs / Physical Exam
Vital Signs
Vital Signs
Temp Pulse Resp BP Pulse Ox
98.2 F 95 18 140/76 96
06/12/25 07:05 06/12/25 07:05 06/12/25 07:05 06/12/25 07:05 06/12/25 07:05
Physical Exam
Constitutional: No Acute Distress and Comfortable
Cardiovascular: Regular Rate and S1/S2
Pulmonary: Rales (bibase)
Gastrointestinal: Soft, Non Tender and Non Distended
Genito-Urinary: Negative Montoya
Extremities: Negative Edema
Neurological: AO x 3
Objective Data
Lab Data
Lab Results
06/12/25 06:24
06/12/25 06:24
Estimated Creat Clear 59 ml/min 06/12/25 06:24
Lactic Acid 1.6 mmol/L (0.7-2.0) 06/07/25 15:38
Total Bilirubin 0.7 mg/dl (0.2-1.3) 06/07/25 15:38
AST 29 U/L (17-59) 06/07/25 15:38
ALT 32 U/L (0-50) 06/07/25 15:38
Alkaline Phosphatase 89 U/L (38-126) 06/07/25 15:38
Most recent labs reviewed.
Micro Results:
06/09/25 03:12 Blood Culture - Preliminary
Blood/Venous No Growth in 72 hours- Final report to follow
06/09/25 03:12 Blood Culture - Preliminary
Blood/Venous No Growth in 72 hours- Final report to follow
06/07/25 16:13 Blood Culture - Preliminary
Blood/Venous Klebsiella pneumoniae
Gram Stain - Preliminary
06/07/25 16:13 Blood Culture - Final
Blood/Venous Klebsiella pneumoniae
Gram Stain - Final
06/08/25 03:26 MRSA Screen - Final
Nose No Methicillin Resistant Staphylococcus aureus isolated.
06/07/25 16:13 Influenza Types A & B (TOREY) - Final
Nasal Swab Negative for Influenza A & B, NAAT
Negative results must be combined with clinical observations
and patient history.
Nucleic Acid Amplification test (NAAT)performed on the
[employer] platform.
06/07/25 CT a/p: SEVERE ACUTE BILATERAL HYDROURETERONEPHROSIS with severe bilateral perinephric edema (possibly acute bilateral pyelonephritis). SEVERE URINARY BLADDER OBSTRUCTION with distention of the urinary bladder with complex fluid,
hemorrhage, or debris secondary to an obstructing mass.
06/07/25 CXR: Moderate amount of airspace opacity in the basilar segments of the lower lobes which has increased since 05/09/2025. Diagnostic possibilities are (1) moderate bilateral lower lobe pneumonia or (2) subsegmental atelectasis (given mild to
moderately decreased bilateral lung volumes).
[2025-06-12] MEDS: NOVOLOG FLEXPEN-LOW RESISTANCE 3 UNITS SC (08:09)
[2025-06-12] MEDS: NOVOLOG FLEXPEN 14 UNITS SC ×2 (08:10→13:45)
[2025-06-12] MEDS: VISBIOME 1 CAP PO (08:11)
[2025-06-12] MEDS: TESSALON PERLES 100 MG PO ×2 (08:11→16:59)
[2025-06-12] MEDS: ELIQUIS 5 MG PO (08:11)
--- NOTE | 2025-06-12 08:11 | W.PN.HOSP.TC ---
Addendum entered and electronically signed by Ronal Thurston MD 06/12/25 09:36:
Total time spent on d/c = 35 min. This included today's physical exam, progress note, review of laboratory and diagnostic data, preparation of discharge documents and prescriptions, and discussions about the pt's hospital course and discharge plan
with the patient and other medical stenographer involved in the patient's care.
Original Note:
Today's Communication/Plan
-
d/c
Assessment / Plan
Assessment / Plan
Gen: NAD, Awake and alert
Eyes: EOMI, PERRLA, no scleral icterus.
Neck: supple.
CV: continues to remain irreg/irreg, +S1/S2, no m/r/g.
Resp: continues to remain CTAB anteriorly, no rales, wheezes, or rhonchi.
Abd: +BS, soft, NT, ND
Skin: No rashes.
Neuro: CN 2-12 intact, non-focal.
Psych: Normal mood and affect.
06/09/25 03:12 Blood/Venous Blood Culture - Preliminary
No Growth in 72 hours- Final report to follow
06/09/25 03:12 Blood/Venous Blood Culture - Preliminary
No Growth in 72 hours- Final report to follow
06/07/25 16:13 Blood/Venous Blood Culture - Preliminary
Klebsiella pneumoniae
06/07/25 16:13 Blood/Venous Gram Stain - Preliminary
06/07/25 16:13 Blood/Venous Blood Culture - Final
Klebsiella pneumoniae
06/07/25 16:13 Blood/Venous Gram Stain - Final
06/08/25 03:26 Nose MRSA Screen - Final
No Methicillin Resistant Staphylococcus aureus isolated.
06/07/25 16:13 Nasal Swab Influenza Types A & B (TOREY) - Final
Negative for Influenza A & B, NAAT
Negative results must be combined with clinical observations
and patient history.
Nucleic Acid Amplification test (NAAT)performed on the
[employer] platform.
CT A/P:
1. SEVERE ACUTE BILATERAL HYDROURETERONEPHROSIS with severe bilateral perinephric edema (possibly acute bilateral pyelonephritis).
2. SEVERE URINARY BLADDER OBSTRUCTION with distention of the urinary bladder with complex fluid, hemorrhage, or debris secondary to an obstructing mass (urothelial carcinoma) or scarring from recurrent urinary tract infections.
3. Previous TURP.
4. Severely enlarged prostate gland.
5. Severe calcific atherosclerotic plaque in the abdominal aorta.
6. Mild hepatosplenomegaly.
7. Moderate circumferential wall thickening in the rectum suggesting proctitis.
8. Small hiatal hernia.
9. 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
10. Mild cardiomegaly.
11. Previous CABG surgery.
CXR:
1. Moderate amount of airspace opacity in the basilar segments of the lower lobes which has increased since 05/09/2025. Diagnostic possibilities are (1) moderate bilateral lower lobe pneumonia or (2) subsegmental atelectasis (given mild to
moderately decreased bilateral lung volumes).
2. Mild enlargement of the cardiomediastinal silhouette.
3. Previous CABG surgery.
Sepsis due to acute UTI/pyelonephritis due to obstructive uropathy:
-with acute metabolic encephalopathy, now with hospital acquired delirium
-Enlarged prostate is causing obstructive uropathy, Abreu catheter placed in the ER
-leukocytosis improved but remains 16, now afebrile
-admission BCxs/UCx with Klebsiella, follow repeat BCxs (NGTD)
-ID/Uro saw in c/s
-s/p CBI, d/c with abreu
-cont Rocephin as per ID. On discharge Cipro 500mg BID through 06/20/25.
-CXR findings likely atelectasis (at this time PNA has been ruled out)
JESSICA and hyponatremia:
-likely due to sepsis and prerenal azotemia
-s/p IVFs
-Cr now 1.0, JESSICA has resolved
-renal saw in c/s
DM2:
-uncontrolled, a1c 10.4%
-Increase Lantus to 30U, cont premeal Novolog 14U
-SSI/accuchecks
-diabetes [place] following
Other problems:
Hyponatremia, resolved
Anemia of chronic disease: Hb stable (prior drop was likely dilational)
Essential HTN: cont Norvasc/Coreg
Permanent afib: cont Coreg/Eliquis
CAD: cont Zetia and statin
DNR/apixaban
RN updated.
Remains medically cleared for d/c. Case management aware.
Anticipated Discharge: Today
Subjective/Interval History
-
Date of Service: June 12, 2025
No new complaints. Asking to be discharged.
Objective Data
-
Labs:
Laboratory Results
06/12/25
06:24
WBC 13.5 H
Hgb 8.9 L
Hct 26.5 L
Plt Count 309
Sodium 138
Potassium 3.8
Chloride 103
Carbon Dioxide 26
BUN 32 H
Creatinine 1.0
Glucose 237 H
Calcium 8.5
Vital Signs:
Vital Signs
Temp Pulse Resp BP Pulse Ox
98.2 F 95 18 140/76 96
06/12/25 07:05 06/12/25 07:05 06/12/25 07:05 06/12/25 07:05 06/12/25 07:05
I&O
06/11/25 06/12/25 06/13/25
06:59 06:59 06:59
Intake Total 480 / 480 1380 / 1380
Output Total 4600 / 4600 7700 / 7700
Balance -4120 / -4120 -6320 / -6320
[2025-06-12] MEDS: OCUVITE SOFTGEL 1 CAP PO (08:12)
[2025-06-12] MEDS: NORVASC 7.5 MG PO (08:12)
[2025-06-12] MEDS: COREG 25 MG PO (08:12)
--- NOTE | 2025-06-12 09:55 | W.PN.URO.CBU ---
Today's Communication / Plan
-
Trial of void
Outpatient follow up
Assessment / Plan
-
Klebsiella urosepsis + bacteremia
Acute urinary retention
Bilateral hydroureteronephrosis
JESSICA
BPH s/p TURP (>5 yrs ago @[facility])
Urine clear in tubing.
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
Will need cystoscopy and urodynamics study as outpatient
Trial of void per Dr. Burch today
Remove abreu - will fill with 150cc saline to give him a head start
PVR bladder scan
Replace abreu if unable to void or high PVRs
Diagnosis
-
Date of Service: June 12, 2025
-
Patient Diagnosis:
Post Op Day:
Patient Diagnosis:
Klebsiella urosepsis + bacteremia
Acute urinary retention
Bilateral hydroureteronephrosis
JESSICA
BPH s/p TURP (>5 yrs ago @[facility])
Subjective
-
No issues overnight
Hematuria resolved
Objective
-
Vital Signs
Temp Pulse Resp BP Pulse Ox
98.2 F 97 20 140/76 97
06/12/25 07:05 06/12/25 07:45 06/12/25 07:45 06/12/25 07:05 06/12/25 07:45
Intake and Output
06/11/25 06/12/25 06/13/25
06:59 06:59 06:59
Intake Total 480 / 480 1380 / 1380
Output Total 4600 / 4600 7700 / 7700
Balance -4120 / -4120 -6320 / -6320
Intake:
Oral fluids 480 / 480 420 / 420
IV fluids (Total) 960 / 960
Output:
True Urine Output from CBI 4600 / 4600 7700 / 7700
Other:
Number of unmeasured liquid
stools
Rectum 1
Laboratory Results
06/12/25 06:24
06/12/25 06:24
Physical Exam
-
General - well developed, well nourished, no acute distress
Chest - clear bilaterally
Abdomen - soft, non-tender, positive bowel sounds, no CVAT, no incisional pain or distention
Genitalia - normal
Rectal - normal
Skin - warm & dry with no rash
Neuro - AOx3, no motor deficits
Extremities - no clubbing, no cyanosis, no edema
Incision - clean, dry
Dressing - clean, dry, intact
[2025-06-12] MEDS: STERILE WATER FOR INJECTION 20 ML IV (10:50)
[2025-06-12] MEDS: ROCEPHIN 2000 MG IV (10:50)
[2025-06-12] MEDS: FLUSH (NSS) 10 FLUSH IV ×2 (10:51)
[2025-06-12 11:02] LABS: COVID-19 Antigen Negative (Negative)
--- NOTE | 2025-06-12 13:17 | W.DCSUMMARY ---
Discharge Summary
Discharge Data
Date of Admission: 06/07/25
Date of Discharge: 06/12/25
-
Pending Results: No
Hospital Course
Primary diagnoses:
Sepsis due to acute urinary tract infection/pyelonephritis due to obstructive uropathy with hemorrhagic cystitis
Acute metabolic encephalopathy
Bilateral hydroureteronephrosis
Hospital-acquired delirium
Acute kidney injury
Hyponatremia
Secondary diagnoses:
Anemia of chronic disease
Essential Hypertension
Permanent atrial fibrillation
Coronary artery disease
Consultants:
Urology
Infectious disease
Nephrology
Imaging:
CT A/P:
1. SEVERE ACUTE BILATERAL HYDROURETERONEPHROSIS with severe bilateral perinephric edema (possibly acute bilateral pyelonephritis).
2. SEVERE URINARY BLADDER OBSTRUCTION with distention of the urinary bladder with complex fluid, hemorrhage, or debris secondary to an obstructing mass (urothelial carcinoma) or scarring from recurrent urinary tract infections.
3. Previous TURP.
4. Severely enlarged prostate gland.
5. Severe calcific atherosclerotic plaque in the abdominal aorta.
6. Mild hepatosplenomegaly.
7. Moderate circumferential wall thickening in the rectum suggesting proctitis.
8. Small hiatal hernia.
9. 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
10. Mild cardiomegaly.
11. Previous CABG surgery.
CXR:
1. Moderate amount of airspace opacity in the basilar segments of the lower lobes which has increased since 05/09/2025. Diagnostic possibilities are (1) moderate bilateral lower lobe pneumonia or (2) subsegmental atelectasis (given mild to
moderately decreased bilateral lung volumes).
2. Mild enlargement of the cardiomediastinal silhouette.
3. Previous CABG surgery.
Hospital course: 85-year-old male who presented with a chief complaint of change in mental status as outlined in the H&P done on admission. Hospital course by problem was:
Sepsis due to acute UTI/pyelonephritis due to obstructive uropathy with hemorrhagic cystitis: The patient had acute metabolic encephalopathy on admission. He had underlying prostatic enlargement causing obstructive uropathy. Montoya catheter was
placed in the ER. He was septic on admission with a leukocytosis and fever. Patient was seen in consultation by urology and infectious disease. Initially the patient was on IV vancomycin and cefepime. He was placed on CBI for hemorrhagic
cystitis. Blood cultures and urine culture grew Klebsiella. His antibiotics were de-escalated to Rocephin and then he was transitioned to Cipro 500mg BID through 06/20/25 on discharge. He was discharged with a Montoya catheter as per urology's
recommendation.
JESSICA and hyponatremia: This was due to sepsis and prerenal azotemia. Patient's acute kidney injury and hyponatremia resolved with IV fluids.
DM2: The patient's type 2 diabetes mellitus was uncontrolled. His hemoglobin a1c 10.4%. Patient was placed on basal bolus insulin which was titrated while he was hospitalized.
Discharge Plan
-
Patient Disposition: Penitentiary/SNF
Discharge Diagnosis/Procedures: Sepsis due to acute UTI/pyelonephritis due to obstructive uropathy, acute metabolic encephalopathy, acute kidney injury, hyponatremia
Condition: Good
Diet: Diabetic, Carb Controlled and Other diet
Additional Diets: IDDSI 6, soft and bite sized
Activity: With assistance
Driving Restrictions: No driving
Blood Work: CBC and BMP in 1 week
Specialty Instructions: Weigh Daily- Call MD for wt gain/loss 3 lbs overnight/5 lbs in 1 week
Referrals:
Arvin Burch MD [Active, Urology] - in three to four weeks
Jnaa Jean Baptiste DO [Family Provider, General] - in less than 1 week
Prescriptions:
New
ciprofloxacin HCl [Cipro] 500 mg tablet
500 mg PO BID Qty: 18 0RF
Rx Instructions:
through 06/20/25
insulin aspart U-100 100 unit/mL (3 mL) Insulin Pen
14 unit SC AC Qty: 0 0RF
Insulin Glargine Lantus [Lantus] 30 UNITS
Subcutaneous Insulin Syringe [Syringe-Insulin] 0 UNIT
As Directed mls/hr SC HS
Ordered By: Ronal Thurston MD
Last Taken: 06/11/25 22:03 0.24 mls
Continued
carvedilol 25 mg Tablet
25 mg PO BID
ezetimibe [Zetia] 10 mg Tablet
10 mg PO HS
cyanocobalamin (vitamin B-12) 500 mcg Tablet
1,000 mcg PO DAILY
cholecalciferol (vitamin D3) [Vitamin D3] 25 mcg (1,000 unit) Capsule
25 mcg PO QPM
PreserVision AREDS-2 250-90-40-1 mg Capsule
1 tab PO BID
ascorbic acid (vitamin C) [Vitamin C] 250 mg Tablet
250 mg PO DAILY
amlodipine 5 mg tablet
7.5 mg PO DAILY
rosuvastatin 10 mg tablet
20 mg PO QPM
dextromethorphan-guaifenesin 10-100 mg/5 mL Syrup
10 ml PO Q4HPRN PRN (Reason: cough) 10 Days Qty: 0 0RF
benzonatate 100 mg Capsule
100 mg PO TID Qty: 20 0RF
albuterol sulfate 90 mcg/actuation Hfa Aerosol Inhaler
2 puff inhalation R Q4HPRN PRN (Reason: shortness of breath or wheeze) Qty: 0 0RF
acetaminophen 325 mg Tablet
650 mg PO Q4HPRN PRN (Reason: fever >/= 100.4F, HERNANDEZ,mild pain) Qty: 0 0RF
ipratropium-albuterol 0.5 mg-3 mg(2.5 mg base)/3 mL Solution For Nebulization
3 ml inhalation R Q4HPRN PRN (Reason: Shortness of breath/wheezing) Qty: 0 0RF
loperamide 2 mg Capsule
2 mg PO Q6HPRN PRN (Reason: diarrhea) Qty: 0 0RF
therapeutic multivitamin Tablet
1 tab PO DAILY
cranberry 500 mg Capsule
500 mg PO DAILY
guaifenesin 400 mg Tablet
400 mg PO Q6HPRN PRN (Reason: cough)
Visbiome 112.5 billion cell Capsule
1 cap PO DAILY
ondansetron HCl 4 mg Tablet
4 mg PO Q6HPRN PRN (Reason: nausea)
magnesium hydroxide [Milk of Magnesia] 400 mg/5 mL Suspension
2,400 mg PO [id number] PRN (Reason: if no bm by 3rd day give on day 4)
bisacodyl [Dulcolax (bisacodyl)] 10 mg Suppository
10 mg PA DAILYPRN PRN (Reason: if no bm by 6th day)
vitamin E 100 unit Tablet
100 unit PO HS
coQ10 (ubiquinol) 100 mg Capsule
100 mg PO HS
ipratropium-albuterol 0.5 mg-3 mg(2.5 mg base)/3 mL solution for nebulization
3 ml inhalation R TID
Eliquis 5 mg tablet
5 mg PO BID
Discontinued
glipizide 2.5 mg Tablet Extended Release 24hr
2.5 mg PO DAILY
metformin 500 mg Tablet
500 mg PO BID
insulin glargine [Lantus U-100 Insulin] 100 unit/mL Solution
16 unit SC HS
turmeric 400 mg Capsule
400 mg PO HS
losartan 50 mg Tablet
100 mg PO HS 30 Days Qty: 60 0RF
insulin aspart U-100 [Novolog FlexPen U-100 Insulin] 100 unit/mL (3 mL) Insulin Pen
1 sliding scale dose SC AC
Rx Instructions:
141-180=4units, 181-220=6units,221-260=8units
Discharge Orders:
Discharge Patient (As Directed); Ordered 06/12/25
Ordered By: Ronal Thurston
Discharge Date and Time
Print Language: MONGOLIAN
[2025-06-12 13:42] LABS: Glucose - Point of Care 337 mg/dl (70-99)
[2025-06-12] MEDS: NOVOLOG FLEXPEN-LOW RESISTANCE 4 UNITS SC (13:44)
[2025-06-12 15:00] VITALS: BP 133/66
[2025-06-12 15:30] VITALS: BP 133/66
[2025-06-12] MEDS: LIDOCAINE URO-JET 2% 1 SYRINGE TOPICAL (16:57)
[2025-06-12] MEDS: CRESTOR 20 MG PO (16:59)
[2025-06-12] MEDS: NOVOLOG FLEXPEN SC (17:21)
[2025-06-12] MEDS: NOVOLOG FLEXPEN-LOW RESISTANCE SC (17:21)
[2025-06-12 19:08] VITALS: BP 134/69
--- NOTE | 2025-06-14 08:59 | CM ---
TC to [facility]'s home to verify patient d/c date and facility. Spoke with Kerri d/c to facility 06/12/25 .
Discharge dispo documented in work list.
== END 2025-06-12 19:22 | DRG 871 ==
LOC: 2 NORTH 19:16
PROVIDERS: Nurse Practitioner Family; Registered Nurse; ADMITTING PHYSICIAN Internal Medicine; ATTENDING PHYSICIAN Internal Medicine; EMERGENCY PHYSICIAN Emergency Medicine; FAMILY PHYSICIAN Family Medicine; OTHER PHYSICIAN Internal Medicine Infectious Disease; OTHER PHYSICIAN Specialist
DX: A41.59 Other Gram-negative sepsis (principal); G93.41 Metabolic encephalopathy; E87.1 Hypo-osmolality and hyponatremia; I48.21 Permanent atrial fibrillation; N17.9 Acute kidney failure, unspecified; N13.6 Pyonephrosis; R44.3 Hallucinations, unspecified; E87.20 Acidosis, unspecified; I48.92 Unspecified atrial flutter; J98.11 Atelectasis; F05 Delirium due to known physiological condition; I25.10 Atherosclerotic heart disease of native coronary artery without angina pectoris; R65.20 Severe sepsis without septic shock; E78.00 Pure hypercholesterolemia, unspecified; N32.0 Bladder-neck obstruction; E11.9 Type 2 diabetes mellitus without complications; I10 Essential (primary) hypertension; D63.8 Anemia in other chronic diseases classified elsewhere; R16.2 Hepatomegaly with splenomegaly, not elsewhere classified; K44.9 Diaphragmatic hernia without obstruction or gangrene; R33.9 Retention of urine, unspecified; N40.1 Benign prostatic hyperplasia with lower urinary tract symptoms; N32.89 Other specified disorders of bladder; E86.1 Hypovolemia; B96.1 Klebsiella pneumoniae [K. pneumoniae] as the cause of diseases classified elsewhere; M47.816 Spondylosis without myelopathy or radiculopathy, lumbar region; Z66 Do not resuscitate; Z96.652 Presence of left artificial knee joint; Z95.1 Presence of aortocoronary bypass graft; Z87.440 Personal history of urinary (tract) infections; Z87.442 Personal history of urinary calculi; Z86.16 Personal history of COVID-19; Z88.8 Allergy status to other drugs, medicaments and biological substances; Z79.4 Long term (current) use of insulin; Z79.84 Long term (current) use of oral hypoglycemic drugs; Z11.52 Encounter for screening for COVID-19; Z79.01 Long term (current) use of anticoagulants; Z90.79 Acquired absence of other genital organ(s)
CPT/HCPCS: 36415; 71046; 74176; 80048; 80053; 80202; 81003; 81015; 82947; 82962; 83605; 85025; 85027; 87040; 87070; 87077; 87154; 87186; 87205; 87502; 87811; 92610; 93005; 94640; 96361; 96374; 96375; 97163; 97167; 99285

== ENCOUNTER 2025-06-28 11:18 | Emergency (ER) | payer MEDICARE, BC, SELFPAY ==
[2025-06-28 11:23] VITALS: BP 143/72
[2025-06-28 11:45] LABS: Hematocrit 27.8 % (39.0-52.0); Hemoglobin 9.2 g/dL (13.0-18.0); Mean Corp Hgb Conc. 33.1 g/dL (33.0-37.0); Mean Corpuscular Volume 87.4 fL (80.0-94.0); Nucleated Red Blood Cells % 0 % (-); Platelet Count 245 10^3/uL (130-400); Red Cell Dist. Width 15.2 % (11.5-14.5)
[2025-06-28 12:04] LABS: ALT (SGPT) 25 U/L (0-50); AST (SGOT) 23 U/L (17-59); Albumin 3.9 g/dl (3.5-5.0); Alkaline Phosphatase 105 U/L (38-126); Blood Urea Nitrogen 26 mg/dl (9-20); Calcium 9.1 mg/dl (8.4-10.2); Carbon Dioxide 22 mmol/L (22-30); Chloride 101 mmol/L (98-107); Glucose 203 mg/dl (70-99); Potassium 4.5 mmol/L (3.5-5.1); Sodium 134 mmol/L (135-145); Total Protein 6.8 g/dl (6.3-8.2); eGFR > 60.00
[2025-06-28 12:47] VITALS: BMI 25.8
[2025-06-28 12:48] VITALS: BP 122/64
[2025-06-28 13:00] VITALS: BP 132/67
[2025-06-28 13:25] VITALS: BP 134/66
--- NOTE | 2025-06-28 13:38 | ED.GENMED ---
History of Present Illness
General
Chief Complaint: Blood Pressure Problem
Source: patient
Exam Limitations: none
Time Seen by Provider: 06/28/25 12:57
Nursing documentation reviewed up to this point in time: agreed with
History of Present Illness
History of Present Illness:
see MDM
Past History
Past History
ED Past Medical History: CAD, HTN, Hypercholesterolemia, IDDM and Other (Kidney stones, BPH)
ED Past Surgical History: Appendectomy, Cardiac (CABG) and Other (Lower leg varicose vein stripping)
Social History
Tobacco: Non-smoker
Alcohol: Occasional
Drug: None
Personal:
Living: with family
Employment: Retired
Family History
Family History: Other (Noncontributory)
Review of Systems
Review of Systems
Allergies reviewed?: Yes
All Other Systems: Not applicable
Phy Exam
Physical Exam
Physical Exam:
GENERAL: Alert , in no apparent distress
EYE: pupils equal and reactive
NECK: Supple
ENT: o/p clr, mmm.
CARDIAC: Regular rate and rhythm . pvd skin chnages B/L le;
LUNGS: Clear breath sounds bilaterally, no acute respiratory distress, no wheezes/rales/rhonchi
ABDOMEN: Soft, without focal tenderness, no r/g, no cvat, normal bowel sounds
gu: normal inspection, abreu in place with cloudy urine (not bloody)
back: nontender
NEUROLOGICAL: Alert and oriented, no focal neuro deficits
SKIN: Warm and dry, skin intact.
MUSCULOSKELETAL: No edema, well perfused. neg cecilio's sign
PSYCH: Normal and appropriate interaction.
Course
Orders/Labs/Results
Orders:
Orders
06/28/25 11:32
Complete Blood Count/With Diff Urgent
Comprehensive Metabolic Panel Urgent
06/28/25 13:40
Lactic Acid Urgent
Urinalysis Reflex To Culture Urgent
Date Specimen was Collected: 06/28/25
Time Specimen was Collected: 13:34
Urine Microscopic Reflex Cult Urgent
Urine Culture Urgent
SARAH Source: U
Specimen Description:
Date Specimen was Collected: 06/28/25
Time Specimen was Collected: 13:34
06/28/25 14:33
LevoFLOXacin [Levaquin] 500 mg PO NOW STA
Abnormal Lab Results
06/28/25 06/28/25
11:32 13:40
RBC 3.18 L 10^6/uL
(4.70-6.10)
Hgb 9.2 L g/dL
(13.0-18.0)
Hct 27.8 L %
(39.0-52.0)
RDW 15.2 H %
(11.5-14.5)
Absolute Neuts (auto) 6.6 H 10^3/uL
(1.4-6.5)
Absolute Lymphs (auto) 1.1 L 10^3/uL
(1.2-3.4)
Absolute Monos (auto) 0.8 H 10^3/uL
(0.1-0.6)
Neutrophils % 75.5 H %
(42.2-75.2)
Lymphocytes % 13.0 L %
(20.5-51.1)
Sodium 134 L mmol/L
(135-145)
BUN 26 H mg/dl
(9-20)
Glucose 203 H mg/dl
(70-99)
Ur Occult Blood Reflex 4+ A
(Negative)
Leukocyte Esterase Rfl 3+ A
(Negative)
Urine RBC 3-6 A /HPF
(0-2)
Urine WBC (Reflex) 50-60 A /HPF
(0-5)
Urine Bacteria (Reflex) Few A
(Negative)
Urine Albumin (Reflex) 3+ A
(Neg - Trace)
06/28/25 11:32
06/28/25 11:32
Vital Signs
Initial and Last Documented VS:
Initial Vital Signs
Temp Pulse Resp BP Pulse Ox
36.8 C 69 16 143/72 98
06/28/25 11:23 06/28/25 11:23 06/28/25 11:23 06/28/25 11:23 06/28/25 11:23
Last Documented Vital Signs
Temp Pulse Resp BP Pulse Ox
36.9 C 82 23 122/64 98
06/28/25 12:48 06/28/25 12:48 06/28/25 12:48 06/28/25 12:48 06/28/25 13:40
MDM/Problems Addressed
Differential Diagnosis Includes:
see MDM
MDM/Problems Addressed:
Note:
CHIEF COMPLAINT(S)
Low blood pressure and hematuria in the setting of recent urological intervention.
HISTORY OF PRESENT ILLNESS
pt is a 85 y/o M from urology office for low bp
has h/o urosepsis and subsequent abreu which has been in place since this previous admissoin
was at the office for follow up cystoscopy and foleychange
bp was 90s/50s several times
pt felt a little sluggish
he had eaten breakfast and took his morning meds beofre this appt at 10am
pt now feels fine and would like to go home
i spoke with dr. mireles who said pt's abreu was changed, was probably malpositioned causing some blood in the urine but replaced and with cloudy urine that was cultured; he called in [facility] for pharmacy but because of low bp sent pt for eval
pt has no fever,chills, weakness, vomiting, abd pain, back pain
ADDITIONAL HISTORY OBTAINED FROM SOURCES OTHER THAN THE PATIENT
Per the patients spouse, the patient had a history of blood in the urine during a hospital stay and was discharged about a week prior. She also mentioned that the patient had breakfast and might have taken medications around 6:30 or 7 AM on the day
of the urologist visit.
CHRONIC MEDICAL CONDITIONS SIGNIFICANTLY AFFECTING CARE
The patient has been on a blood thinner, specifically warfarin, for an unspecified indication.
SOCIAL DETERMINANTS AFFECTING HEALTH
The patient does not wish to be hospitalized if avoidable and prefers to manage care at home if stable.
REVIEW OF SYSTEMS
- Cardiovascular: Reports dizziness associated with hypotension.
- Genitourinary: Hematuria post-catheterization; cloudy urine noted.
- General: Recent hospitalization for urinary tract infection and sepsis.
PHYSICAL EXAM
- Nursing notes reviewed and vital signs reviewed.
- Cardiovascular: Blood pressure was noted to be as low as 90/50 mmHg in the office, current reading in ED was 134/66 mmHg.
PROBLEM LIST
Acute:
- Hypotension
- Hematuria
- Suspected recurrent urinary tract infection
Chronic:
- Anticoagulation therapy with warfarin
PLAN
1. Obtain blood work to evaluate for signs of sepsis or acute renal injury.
2. Send urine culture to confirm infection, understanding the limitations due to existing catheterization.
3. Discuss with the urologist, Dr. Desouza, regarding ongoing concerns and potential need for antibiotics.
4. Monitor blood pressure and clinical status in the emergency department; consider discharge if stable without signs of systemic infection or organ dysfunction.
5. Consider the initiation of antibiotics if clinically indicated after evaluation.
DIFFERENTIAL DIAGNOSIS
The Differential Diagnosis includes, in no particular order and is not limited to:
1. Recurrent urinary tract infection
2. Catheter-related urinary tract infection
3. Catheter displacement causing hematuria
4. Sepsis secondary to urinary source
5. Hypotension secondary to medication effect or internal bleeding
6. Adverse effect from anticoagulation therapy
7. Urinary tract trauma due to recent urological procedures
8. Bleeding disorder or exacerbation due to anticoagulation
9. Acute kidney injury secondary to infection or sepsis
10. Orthostatic hypotension or vasovagal response
85-year-old male with a history of chronic Abreu since recent JESSICA and urosepsis episode this month presenting from the office with urologist with low blood pressure. Patient's blood pressure apparently was 90s over 50s. He was minimally
symptomatic just feeling sluggish. He has not had a fever. But it looks like his Abreu was not in the right place and was draining a little bloody urine and not draining very well before it was replaced in the office. Since the replacement
patient has felt fine and his BPs here have all been 130s to 140s over 80s. He has no fevers. His white count is normal, creatinine send his baseline. I spoke with Dr. mireles who is okay with him going home on the Levaquin that he had called in,
he had already sent a culture from the office. He did not feel that imaging was necessary. Will check a lactic acid and as long as his lactates not up and his blood pressure maintains he can go home
1430
bp 128/60s
looks well
wants to go home
lactate and wbc normal
d/c home on levaquin
*Pulse Oximetry
SaO2: 98
Oxygen Mode of Delivery: Room air
Patient hypoxic: no (98)
*Critical Care Note
Total Time (30-74mins, 75-104mins- exclusive of procedures): Not Applicable
ED Attending Note
-
Portions of this chart may have been created with voice recognition software.� Occasional wrong word or��sound alike� substitutions may have occurred due to the inherent limitations of voice recognition software.
Discharge Plan
Departure
Patient Disposition: Home (Routine Discharge)
Date of Disposition: 06/28/25
Time of Disposition: 14:38
Patient with high blood pressure during this ER visit?: No
Condition: Fair
Discharge Problem:
UTI (urinary tract infection)
Instructions: Urinary tract infection in adults - ED discharge instructions
Prescriptions:
New
levofloxacin 500 mg tablet
500 mg PO DAILY Qty: 7 0RF
No Action
carvedilol 25 mg Tablet
25 mg PO BID
ezetimibe [Zetia] 10 mg Tablet
10 mg PO HS
cyanocobalamin (vitamin B-12) 500 mcg Tablet
1,000 mcg PO DAILY
cholecalciferol (vitamin D3) [Vitamin D3] 25 mcg (1,000 unit) Capsule
25 mcg PO QPM
PreserVision AREDS-2 250-90-40-1 mg Capsule
1 tab PO BID
ascorbic acid (vitamin C) [Vitamin C] 250 mg Tablet
250 mg PO DAILY
amlodipine 5 mg tablet
7.5 mg PO DAILY
rosuvastatin 10 mg tablet
20 mg PO QPM
dextromethorphan-guaifenesin 10-100 mg/5 mL Syrup
10 ml PO Q4HPRN PRN (Reason: cough) 10 Days Qty: 0 0RF
benzonatate 100 mg Capsule
100 mg PO TID Qty: 20 0RF
albuterol sulfate 90 mcg/actuation Hfa Aerosol Inhaler
2 puff inhalation R Q4HPRN PRN (Reason: shortness of breath or wheeze) Qty: 0 0RF
acetaminophen 325 mg Tablet
650 mg PO Q4HPRN PRN (Reason: fever >/= 100.4F, HERNANDEZ,mild pain) Qty: 0 0RF
ipratropium-albuterol 0.5 mg-3 mg(2.5 mg base)/3 mL Solution For Nebulization
3 ml inhalation R Q4HPRN PRN (Reason: Shortness of breath/wheezing) Qty: 0 0RF
loperamide 2 mg Capsule
2 mg PO Q6HPRN PRN (Reason: diarrhea) Qty: 0 0RF
therapeutic multivitamin Tablet
1 tab PO DAILY
cranberry 500 mg Capsule
500 mg PO DAILY
guaifenesin 400 mg Tablet
400 mg PO Q6HPRN PRN (Reason: cough)
Visbiome 112.5 billion cell Capsule
1 cap PO DAILY
ondansetron HCl 4 mg Tablet
4 mg PO Q6HPRN PRN (Reason: nausea)
magnesium hydroxide [Milk of Magnesia] 400 mg/5 mL Suspension
2,400 mg PO [id number] PRN (Reason: if no bm by 3rd day give on day 4)
bisacodyl [Dulcolax (bisacodyl)] 10 mg Suppository
[address] DAILYPRN PRN (Reason: if no bm by 6th day)
vitamin E 100 unit Tablet
100 unit PO HS
coQ10 (ubiquinol) 100 mg Capsule
100 mg PO HS
ipratropium-albuterol 0.5 mg-3 mg(2.5 mg base)/3 mL solution for nebulization
3 ml inhalation R TID
Eliquis 5 mg tablet
5 mg PO BID
ciprofloxacin HCl [Cipro] 500 mg tablet
500 mg PO BID Qty: 18 0RF
Rx Instructions:
through 06/20/25
insulin aspart U-100 100 unit/mL (3 mL) Insulin Pen
14 unit SC AC Qty: 0 0RF
Insulin Glargine Lantus [Lantus] 30 UNITS
Subcutaneous Insulin Syringe [Syringe-Insulin] 0 UNIT
As Directed mls/hr SC HS
Ordered By: Ronal Thurston MD
Last Taken: Unknown
Referrals:
Jeevan Webb DO [Family Provider, Internal Medicine]
Activity Restrictions/Additional Instructions:
Your urine probably is infected. Dr. mireles called in the antibiotics to your pharmacy already which is Levaquin once a day for 7 days. Stay hydrated.
Your blood pressure was stable here and not low.
Should you develop chills, fever, weakness or fatigue, inability to drain your bladder, severely bloody urine, back pain you should return to the ER immediately
Otherwise follow-up with Dr. mireles as planned
Interventions
Interventions:
*Risk Screen - Suicide Last Done: 06/28/25 11:23
*General Assessment Last Done: 06/28/25 12:48
*Neglect/Abuse Screening Last Done: 06/28/25 11:23
*ED- Fall Risk Assessment Last Done: 06/28/25 12:48
*ED COVID-19 Vaccine History Last Done: 06/28/25 12:48
ED- Cardiac Assessment Last Done: 06/28/25 12:48
ED- Neurological Assessment Last Done: 06/28/25 12:48
ED- Pulmonary Assessment Last Done: 06/28/25 12:48
Discharge Date and Time
Print Language: GEORGIAN
[2025-06-28 14:00] VITALS: BP 129/59
[2025-06-28 14:02] LABS: Urine Character Slightly Cloudy (Clear)
[2025-06-28 14:30] LABS: Urine Squamous Cell 0-2 /LPF (Few); Urine White Cell 50-60 /HPF (0-5)
[2025-06-28] MEDS: LEVAQUIN 500 MG PO (15:00)
== END 2025-06-28 15:07 | disposition home or self-care (01) ==
LOC: EMR 11:18
PROVIDERS: Emergency Medicine; Physician Assistant; EMERGENCY PHYSICIAN Emergency Medicine; FAMILY PHYSICIAN Internal Medicine
DX: N39.0 Urinary tract infection, site not specified (principal); R31.9 Hematuria, unspecified; I25.10 Atherosclerotic heart disease of native coronary artery without angina pectoris; I10 Essential (primary) hypertension; E78.00 Pure hypercholesterolemia, unspecified; E11.9 Type 2 diabetes mellitus without complications; Z79.4 Long term (current) use of insulin; Z95.1 Presence of aortocoronary bypass graft; N40.0 Benign prostatic hyperplasia without lower urinary tract symptoms; Z79.01 Long term (current) use of anticoagulants; Z96.0 Presence of urogenital implants
CPT/HCPCS: 99283; 80053; 81003; 81015; 83605; 85025; 87086